=== PATIENT | female | born 1945 | race Caucasian/White ===

== ENCOUNTER 2020-08-11 10:49 | Emergency (ER) | payer MEDICARE, SELFPAY ==
[2020-08-11] VITALS (17 sets, daily range): BP systolic 98–127; BP diastolic 50–61; PULSE 85–103; RESP 14–33; TEMP 37.3; O2SAT 89–100
--- NOTE | 2020-08-11 11:39 | ED_ITS ---
HPI - General Adult General Chief complaint: Weakness Stated complaint: pneumonia/inflamed pelvic lymphnodes/anemic Time Seen by Provider: 08/11/20 11:21 Source: patient and family Mode of arrival: Wheelchair Limitations: no limitations History of Present Illness HPI narrative: Patient is a 75-year-old female. She is here with her daughter. With multiple complaints. She is here for bilateral lower back pain. Initially patient stated this been going on for 2 weeks however the daughter states that this is not necessarily true. She has been complaining of lower back pain for many weeks if not months now however he potentially has gotten worse over the past 2 weeks. No urinary symptoms. No change in bowel habits. No radiation down into her lower extremities. She is also here for a history of anemia. She was started on iron pills by her primary doctor for this. She is also here for decreased appetite. This is also been going on for many weeks now. She has had weight loss over the past 5 months. She has seen her primary doctor and had a CT scan and ultrasound an outside facility which showed simple cysts on her ovaries but also enlarged lymph nodes in her abdomen. She stated that her prima doctor wanted her to see Oncology however this has not happened up to this point because her primary doctor is on vacation. She does live at home with her . She denies any fevers. Generally does not feel well. Related Data Allergies Allergy/AdvReac Type Severity Reaction Status Date / Time No Known Drug Allergies Allergy Verified 08/11/20 11:16 Review of Systems Constitutional Constitutional: Reports fatigue, Denies fever(s) and Reports poor appetite Eyes Eyes: Denies eye discharge Cardiovascular Cardiovascular: Denies chest pain and Denies dyspnea Respiratory Respiratory: Denies dyspnea Gastrointestinal Gastrointestinal: Denies abdominal pain, Denies nausea and Denies vomiting Genitourinary Genitourinary: Denies dysuria Genitourinary: Denies dysuria Musculoskeletal Musculoskeletal: Reports back pain Integumentary/Breasts Skin/Breast: Denies rash Neurologic Neurologic: Denies behavioral changes Psychiatric Psychiatric: Denies behavioral changes Endocrine Endocrine: Reports fatigue Hematologic/Lymphatic On Anticoagulants: No Allergic/Immunologic Allergic/Immunologic: Denies urticaria Patient History Medical History Lower back pain Social History Smoking Status: Never smoker Smoking Status: Never smoker alcohol intake frequency: 0-2 drinks per day Substance Use Type: does not use Exam Initial Vital Signs Initial Vital Signs: Vital Signs Temperature 99.1 F 08/11/20 11:10 Pulse Rate 103 H 08/11/20 11:10 Respiratory Rate 22 08/11/20 11:10 Blood Pressure 118/58 L 08/11/20 11:10 Pulse Oximetry 92 08/11/20 11:10 Const General: cooperative and comfortable Limitations: mental status not altered HENMT Head: normal to inspection and normocephalic Resp Effort & Inspection: normal respiratory effort Auscultation: clear to auscultation bilaterally Cardio Rate: regular rate Rhythm: regular rhythm GI Inspection: non-distended Palpation: soft Skin Lesions: no lesions Rashes: no rashes Neuro General: patient alert and patient awake Cognition: normal cognition Speech: speech normal Extrem General: capillary refill normal Psych Appearance: grossly normal and well kempt Course Orders Ordered: ED Orders 08/11/20 11:40 EKG-12 Lead Stat 08/11/20 11:55 Complete Blood Count AUTO DIFF Stat Comprehensive Metabolic Panel Stat Lactate (Lactic Acid) Stat Lipase Stat Procalcitonin Stat Troponin & CK Cardiac Panel Stat 08/11/20 11:58 COVID19 Stat 08/11/20 12:00 Consult to [facility] [place] [facility] Stat 08/11/20 13:08 Urine Microscopic Stat 08/11/20 13:18 XR chest 1V Stat Discontinued Medications Sodium Chloride (Normal Saline 0.9%) 1,000 mls @ 125 mls/hr IV CONT BRENDA Last Infusion: 08/11/20 15:40 Dose: 0 mls/hr Documented by: Admin: 08/11/20 13:25 Dose: 125 mls/hr Documented by: SOFÍA Ketorolac Tromethamine (Ketorolac 60 Mg/2 Ml Vial) 30 mg IV NOW ONE Stop: 08/11/20 13:19 Last Admin: 08/11/20 13:24 Dose: 30 mg Documented by: SOFÍA Vital Signs Vital signs: Vital Signs - 8 hr 08/11/20 11:10 08/11/20 11:23 08/11/20 11:24 Temperature 99.1 F Pulse Rate 103 H 96 H Respiratory Rate 22 20 Blood Pressure 118/58 L 125/61 Pulse Oximetry 92 100 08/11/20 11:30 08/11/20 11:45 08/11/20 12:00 Temperature Pulse Rate 96 H 92 H 96 H Respiratory Rate 14 16 29 H Blood Pressure 115/61 117/58 L Pulse Oximetry 100 97 93 08/11/20 12:30 08/11/20 13:00 08/11/20 13:04 Temperature Pulse Rate 92 H 102 H 96 H Respiratory Rate 25 H 33 H 20 Blood Pressure 127/58 L Pulse Oximetry 94 89 L 08/11/20 13:15 08/11/20 13:30 08/11/20 13:45 Temperature Pulse Rate 93 H 93 H 91 H Respiratory Rate 18 17 17 Blood Pressure 123/60 111/54 L 102/54 L Pulse Oximetry 93 95 91 08/11/20 14:00 08/11/20 14:15 08/11/20 14:30 Temperature Pulse Rate 91 H 91 H 85 Respiratory Rate 23 24 17 Blood Pressure 98/51 L 101/51 L 98/50 L Pulse Oximetry 91 92 91 08/11/20 14:45 08/11/20 15:00 Temperature Pulse Rate 86 90 Respiratory Rate 25 H 24 Blood Pressure 100/54 L 110/53 L Pulse Oximetry 91 91 Medical Decision Making Medical Records Medical records reviewed: Yes I reviewed the patient's medical records. Lab Data Lab results reviewed: Yes I reviewed the patient's lab results. Result diagrams: 08/11/20 11:55 08/11/20 11:55 Labs: Lab Results 08/11/20 08/11/20 08/11/20 Range/Units 11:55 11:55 11:55 WBC 2.4 L (4.5-11.0) X10^3/uL RBC 2.91 L (4.0-5.2) X10^6/uL Hgb 8.3 L (12.0-16.0) g/dL Hct 24.6 L (36-46) % MCV 84.4 (80-100) fL MCH 28.4 (26-34) PG MCHC 33.6 (30-36) % RDW 16.7 H (11.6-14.8) % Plt Count 348 (150-400) X10^3/uL Neut % (Auto) 78.7 H (50-75) % Lymph % (Auto) 11.4 L (25-40) % [place] % (Auto) 6.3 (3-14) % Eos % (Auto) 2.8 (2-4) % Baso % (Auto) 0.8 (0-2) % Neut # (Auto) 1900 (7283-5243) /uL Lymph # (Auto) 300 L (8648-7808) /uL [place] # (Auto) 200 (0-900) /uL Eos # (Auto) 100 (0-450) /uL Baso # (Auto) 0 (0-100) /uL Sodium 128 L (137-145) mmol/L Potassium 4.4 (3.4-5.1) mmol/L Chloride 96 L (98-107) mmol/L Carbon Dioxide 28 (22-32) mmol/L BUN 21 H (7-17) mg/dL Creatinine 0.73 (0.52-1.04) mg/dL Estimated GFR > 60.0 (>60) mL/min BUN/Creatinine Ratio 28.8 H (6-22) Glucose 93 (80-110) mg/dL Lactate (0.7-2.1) mmol/L Calcium 8.3 L (8.4-10.2) mg/dL Total Bilirubin 0.3 (0.2-1.3) mg/dL AST 61 H (14-36) IU/L ALT 30 (<35) IU/L Alkaline Phosphatase 31 L (38-126) U/L Total Creatine Kinase < 20 L (30-135) U/L CK-MB (CK-2) TNP CK-MB (CK-2) Rel Index TNP Troponin I < 0.012 (0.01-0.034) ng/mL Total Protein 6.5 (6.3-8.2) g/dL Albumin 3.0 L (3.5-5.0) g/dL Globulin 3.5 (1.7-4.1) g/dL Albumin/Globulin Ratio 0.9 L (1.0-2.8) Lipase 65 (23-300) U/L Procalcitonin 0.16 (<0.5) ng/mL Urine RBC (0-5/HPF) Urine WBC (0-5/HPF) Ur Squamous Epith Cells (0-5/HPF) Ur Transition Epith Cell (0-5/HPF) Urine Bacteria (None) Ur Culture Indicated? SARS-CoV-2 (PCR) (Negative) 08/11/20 08/11/20 08/11/20 Range/Units 11:55 11:58 13:08 WBC (4.5-11.0) X10^3/uL RBC (4.0-5.2) X10^6/uL Hgb (12.0-16.0) g/dL Hct (36-46) % MCV (80-100) fL MCH (26-34) PG MCHC (30-36) % RDW (11.6-14.8) % Plt Count (150-400) X10^3/uL Neut % (Auto) (50-75) % Lymph % (Auto) (25-40) % [place] % (Auto) (3-14) % Eos % (Auto) (2-4) % Baso % (Auto) (0-2) % Neut # (Auto) (9073-2429) /uL Lymph # (Auto) (2424-4378) /uL [place] # (Auto) (0-900) /uL Eos # (Auto) (0-450) /uL Baso # (Auto) (0-100) /uL Sodium (137-145) mmol/L Potassium (3.4-5.1) mmol/L Chloride (98-107) mmol/L Carbon Dioxide (22-32) mmol/L BUN (7-17) mg/dL Creatinine (0.52-1.04) mg/dL Estimated GFR (>60) mL/min BUN/Creatinine Ratio (6-22) Glucose (80-110) mg/dL Lactate 1.2 (0.7-2.1) mmol/L Calcium (8.4-10.2) mg/dL Total Bilirubin (0.2-1.3) mg/dL AST (14-36) IU/L ALT (<35) IU/L Alkaline Phosphatase (38-126) U/L Total Creatine Kinase (30-135) U/L CK-MB (CK-2) CK-MB (CK-2) Rel Index Troponin I (0.01-0.034) ng/mL Total Protein (6.3-8.2) g/dL Albumin (3.5-5.0) g/dL Globulin (1.7-4.1) g/dL Albumin/Globulin Ratio (1.0-2.8) Lipase (23-300) U/L Procalcitonin (<0.5) ng/mL Urine RBC 1-5/hpf (0-5/HPF) Urine WBC 10-30/hpf H (0-5/HPF) Ur Squamous Epith Cells 10-30 /hpf H (0-5/HPF) Ur Transition Epith Cell 5-10/hpf H (0-5/HPF) Urine Bacteria None seen (None) Ur Culture Indicated? Cult not indicated SARS-CoV-2 (PCR) Negative (Negative) Urine Dip Bedside Urine Glucose Negative Bedside Urine Bilirubin - Negative Bedside Urine Ketone - Negative Urine Specific [place] 1.015 Bedside Urine Occult Blood - Negative Bedside Urine pH 6.0 Bedside Urine Protein - Negative Bedside Urine Urobilinogen - Negative Bedside Urine Nitrite - Negative Bedside Urine Leukocytes +/- 15 Esterase Point of care testing: Urine Dip Bedside Urine Glucose Negative Bedside Urine Bilirubin - Negative Bedside Urine Ketone - Negative Urine Specific [place] 1.015 Bedside Urine Occult Blood - Negative Bedside Urine pH 6.0 Bedside Urine Protein - Negative Bedside Urine Urobilinogen - Negative Bedside Urine Nitrite - Negative Bedside Urine Leukocytes +/- 15 Esterase ECG Data Attestation: I personally reviewed and interpreted this ECG as follows: Prior ECG tracings: not available for review Interpretation: Sinus rhythm Ventricular rate 94 Normal axis Normal QRS Normal QTC No ST T wave changes MDM Narrative Medical decision making narrative: Patient is anemic however none level that would require blood transfusion and feels not a level that would explain her symptoms. I did inform her that it would take longer than 10 days for for the iron that she has taken provided by her primary doctor to start increasing her blood counts. I was able to review the patient's CT scan and ultrasound. Feel that most likely reason that the patient is here is because they do have been told that they needed follow-up with Oncology based on the CT scan and ultrasound results and they cannot get in to see their primary doctor until the . Unfortunately cannot move this appointment up however they were given the phone number for our local oncologist they can call to see if they can get in without a referral. Patient does not meet any admission criteria today. They were seen by social work and they were able to schedule appointment with her primary doctor later this week. The patient and family at bedside all expressed understanding and agreement. Discharge Plan Departure Patient Disposition: Home Clinical Impression: Fatigue, Anemia, Decreased appetite Instructions: DI for Fatigue Activity Restrictions/Additional Instructions: I do recommend you continue all of your medications as directed. Keep all of your scheduled medical appointments. I do recommend you contact the [facility] here at [facility] at [phone]. You may need a referral from your primary provider before you can schedule an appointment however you can give them a call to confirm this. I do recommend that you increase your food intake. This can be with anything to include meal suppleme nts such as Ensure or boost. Return to the emergency department for any new or worsening symptoms Referrals: Beka Tucker DO [Primary Care Provider] -
[2020-08-11 12:07] LABS: Add Manual Diff / Slide Review NO; Basophils Absolute Auto 0 /uL (0-100); Basophils Percent Auto 0.8 % (0-2); Eosinophils Absolute Auto 100 /uL (0-450); Eosinophils Percent Auto 2.8 % (2-4); Hematocrit 24.6 % (36-46); Hemoglobin 8.3 g/dL (12.0-16.0); Lymphocytes Absolute Auto 300 /uL (1100-4500); Lymphocytes Percent Auto 11.4 % (25-40); Mean Corpuscular HGB Conc 33.6 % (30-36); Mean Corpuscular Hemoglobin 28.4 PG (26-34); Mean Corpuscular Volume 84.4 fL (80-100); Monocytes Absolute Auto 200 /uL (0-900); Monocytes Percent Auto 6.3 % (3-14); Neutrophils Absolute Auto 1900 /uL (1500-7000); Neutrophils Percent Auto 78.7 % (50-75); Platelet Count 348 X10^3/uL (150-400); Red Blood Cell Count 2.91 X10^6/uL (4.0-5.2); Red Cell Distribution Width 16.7 % (11.6-14.8); White Blood Cell Count 2.4 X10^3/uL (4.5-11.0)
[2020-08-11 12:17] LABS: Lactate (Lactic Acid) 1.2 mmol/L (0.7-2.1)
[2020-08-11 12:19] LABS: Alanine Aminotransferase 30 IU/L (<35); Albumin Globulin Ratio 0.9 (1.0-2.8); Alkaline Phosphatase 31 U/L (38-126); Aspartate Aminotransferase 61 IU/L (14-36); BUN Creatinine Ratio 28.8 (6-22); Bilirubin Total 0.3 mg/dL (0.2-1.3); Blood Urea Nitrogen 21 mg/dL (7-17); Calcium 8.3 mg/dL (8.4-10.2); Carbon Dioxide 28 mmol/L (22-32); Chloride 96 mmol/L (98-107); Creatine Kinase < 20 U/L (30-135); Estimated Glomerular Filt Rate > 60.0 mL/min (>60); Globulin 3.5 g/dL (1.7-4.1); Glucose 93 mg/dL (80-110); HEMOLYSIS < 15 (0-50); Lipase 65 U/L (23-300); Potassium 4.4 mmol/L (3.4-5.1); Sodium 128 mmol/L (137-145); Total Protein 6.5 g/dL (6.3-8.2)
[2020-08-11 12:30] LABS: Troponin I < 0.012 ng/mL (0.01-0.034)
[2020-08-11 12:33] LABS: COVID19 -Nasal RAPID Negative (Negative)
[2020-08-11 12:34] LABS: Procalcitonin 0.16 ng/mL (<0.5)
--- NOTE | 2020-08-11 13:18 | DI.RAD.S_ITS ---
PROCEDURE: XR CHEST 1V INDICATIONS: SOB TECHNIQUE: One view of the chest was acquired. COMPARISON: None. FINDINGS: Surgical changes and devices: None. Lungs and pleura: Lungs are clear. No significant pleural effusions or pneumothorax. Mediastinum: Mediastinal contours appear normal. Heart size is enlarged. Bones and chest wall: No suspicious bony lesions. Overlying soft tissues appear unremarkable. IMPRESSION: No acute pulmonary pathology. Cardiomegaly. Dictated by: Mina Turner M.D. on 08/11/2020 at 12:34 Approved by: Mina Turner M.D. on 08/11/2020 at 12:45
[2020-08-11 13:23] LABS: Bacteria Urine None Seen
[2020-08-11] MEDS: KETOROLAC 60 MG/2 ML VIAL 30 MG IV (13:24)
[2020-08-11] MEDS: SODIUM CHLORIDE 0.9% 1,000 ML 125 ML IV (13:25)
[2020-08-11 13:37] LABS: Culture Indicated Urine Cult Not Indicated; RBC Urine 1-5/HPF (0-5/HPF); Squamous Epithelial Cell Urine 10-30 /HPF (0-5/HPF); Transitional Epi Cells Urine 5-10/HPF (0-5/HPF); WBC Urine 10-30/HPF (0-5/HPF)
--- NOTE | 2020-08-11 15:23 | CM.SWNOTE ---
CERAMIC TILE MECHANIC/DCP Note: Received verbal referral from ED provider/Dr. Barbosa requesting CERAMIC TILE MECHANIC see patient/family to assist with community resources for discharge. Patient is a 75yr old female presenting to ED via family transport for weakness. CERAMIC TILE MECHANIC met with patient and DIL/Jazmin explained CERAMIC TILE MECHANIC role. LULU reports that mass had been found on patient's pelvic lymphnode. Per LULU patient has been seen by PCP/Dr. Tucker 2x in the last month. DIL unsure on how much information was provided to patient? Patient has appointment scheduled with PCP on 08-20-20. Patient and DIL requesting sooner appointment to obtain referrals for possible Oncology intervention. Placed call to PCP's office spoke with Rita, she confirms appointment on 08-20-19 and reports patient can be seen on 08-13-20 at 10:00AM. Rita requesting ED notes be faxed prior to appointment. ED staff notified and will fax prior to patient's departure. In addition, to the above discussed community resources such as private caregivers in the residence. Family currently assisting but report that they cannot do this full-time. Patient resides with spouse that has multiple medical issues and no longer drives. LULU reports patient and spouse very private therefore, obtaining community resources has been a challenge. Family hopeful that this visit to ED and community resources recommended will help. DPOA information also provided and encouraged to complete with PCP. P: Home today. SUBHA Alberts
== END 2020-08-11 15:37 | disposition home or self-care (01) ==
PROVIDERS: Emergency Provider Emergency Medicine; PCP Family Medicine
DX: R53.83 Other fatigue (principal); D64.9 Anemia, unspecified; R63.0 Anorexia; M54.5 Low back pain; Z20.822 Contact with and (suspected) exposure to COVID-19
CPT/HCPCS: 36415; 71045; 80053; 81003; 81015; 82550; 83605; 83690; 84145; 84484; 85025; 87635; 93005; 96361; 96374; 99284; C9803; J1885

== ENCOUNTER → 2020-08-26 11:08 | Outpatient (CLI) | payer MEDICARE, SELFPAY ==
--- NOTE | 2020-08-26 | DI.ECHO.S_ITS ---
[facility] +---------+ : : [address] : : : : [id number] : : : : Phone: [phone] Echocardiogram Report + + :Name: ERLINDA FAULKNER Study Date: 08/26/2020 Height: 64 in : :[facility] ReadingLocation: Weight: 197 lb : : Gender: Female BSA: 1.9 m2 : :: 1945 Age: 75 yrs BP: 112/78 mmHg: :Reason For Study: ATHEROSCLEROTIC HEART DISEASE : :Ordering Physician: TRU, : :FRANCI Performed By: Betsy Barton : :Referring: FRANCI BRITO : + + Interpretation Summary 1) Normal left ventricular size, wall motion, and systolic function (EF 60- 65%). 2) Normal right ventricular size and function. 3) No significant valvular abnormalities. 4) No prior Echo available for comparison. Procedure: A two-dimensional transthoracic echocardiogram with color flow and Doppler was performed. The study quality was technically adequate. There is no prior echocardiogram noted for this patient. The patient was in sinus rhythm with heart rates between 84-88 bpm during the exam. Left Ventricle: The left ventricle is normal in size. Left ventricular wall thickness is mildly increased. Proximal septal thickening is noted. The ejection fraction is estimated to be 60-65%. Left ventricular systolic function appears normal without focal wall motion abnormalities. Right Ventricle: The right ventricle is normal in size and function. Atria: The left atrium is moderately dilated. Right atrial size is normal. There is no Doppler evidence for an interatrial shunt. Mitral Valve: The mitral valve is normal in structure and function. There is mild mitral regurgitation. Aortic Valve: There is mild aortic valve sclerosis. The aortic valve is trileaflet. The aortic valve opens well. The calculated aortic valve area is 2.9 cm2. The peak aortic velocity is 2.16 m/sec. The aortic valve mean gradient is 10 mmHg. There is no aortic valve stenosis. Mildly elevated gradient across the aortic valve due to high output state (stroke volume 112cc). No aortic regurgitation is present. Tricuspid Valve: The tricuspid valve is normal in structure and function. There is trace tricuspid regurgitation. The right ventricular systolic pressure is estimated to be at least 29 mmHg based on an estimated right atrial pressure of 3 mm Hg. Pulmonic Valve: The pulmonic valve leaflets are thin and pliable; valve motion is normal. There is no pulmonic valvular regurgitation. Great Vessels: The aortic root is normal size. The ascending aorta is at the upper limits of normal in size. The IVC is of normal diameter and collapses greater than 50% with a sniff. This suggests a low right atrial pressure of 3 mm Hg. Pericardium/ Pleura There is no pericardial effusion. There is no pleural effusion. MMode/2D Measurements & Calculations LVIDd: 3.8 cm LVOT diam: 2.4 cm LVIDs: 2.4 cm Ao root diam: 2.7 cm FS: 36.0 % asc Aorta Diam: 4.0 cm IVSd: 1.3 cm Ao Arch Diam (Prox Trans): 3.0 cm LVPWd: 1.0 cm LV velasquez. diameter/BSA (cm/m^2): 2.0 LV sys. diameter/BSA (cm/m^2): 1.3 LA A2 area: 22.6 cm2 RA long axis: 5.1 cm LA A4 area: 23.1 cm2 RA area: 15.7 cm2 LA length (vol): 5.8 cm RA vol: 41.3 ml LA vol: 75.8 ml RA : 21.3 ml/m2 LA vol index: 39.0 ml/m2 IVC diam: 1.3 cm RVD1 (basal): 3.1 cm TAPSE: 1.8 cm Doppler Measurements & Calculations Ao V2 max: 216.3 cm/sec LVOT Max David: 129.1 cm/sec Ao V2 mean: 148.6 cm/sec LV V1 max P.7 mmHg Ao max P.7 mmHg LV V1 VTI: 25.7 cm Ao mean P.0 mmHg NADEGE(I,D): 2.9 cm2 Ao V2 VTI: 38.3 cm NADEGE(V,D): 2.6 cm2 sev ratio: 0.67 NADEGE indexed to BSA (cm^2/m^2): 1.5 MV E max david: 76.5 cm/sec TR max david: 255.6 cm/sec MV A max david: 107.8 cm/sec TR max P.1 mmHg MV E/A: 0.71 PA V2 max: 97.9 cm/sec Med Peak E' David: 5.9 cm/sec PA V2 mean: 69.8 cm/sec E/E' med: 12.9 PA mean P.2 mmHg Lat Peak E' David: 11.7 cm/sec PA pr(Accel): 44.7 mmHg E/E' lat: 6.5 E/e' average: 9.7 MV dec time: 0.23 sec SV(OT): 112.4 ml Reading Physician:07:28 PM
[2020-08-26 13:56] LABS: Carcinoembryonic Antigen 0.4 ng/mL (0.1-3.0)
[2020-08-27 08:09] LABS: Cancer (Carbohydrate) Ag 19-9 3 U/mL (0-35)
== END ==
PROVIDERS: Obstetrics & Gynecology; Family Provider Physician Assistant Medical; PCP Family Medicine; Referring Provider Internal Medicine Cardiovascular Disease; Visit Provider Internal Medicine Cardiovascular Disease
DX: I08.0 Rheumatic disorders of both mitral and aortic valves (principal); I25.10 Atherosclerotic heart disease of native coronary artery without angina pectoris; I10 Essential (primary) hypertension; R63.4 Abnormal weight loss
CPT/HCPCS: 36415; 82378; 86301; 93306

== ENCOUNTER 2020-08-28 11:54 | Emergency (ER) | payer MEDICARE, SELFPAY ==
[2020-08-28] VITALS (8 sets, daily range): BP systolic 106–126; BP diastolic 53–60; PULSE 83–90; RESP 18; TEMP 37.2; O2SAT 96–100; BMI 33.6
--- NOTE | 2020-08-28 12:09 | ED_ITS ---
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 Today she was at her doctor's office when she felt dizzy and lightheaded she did not pass out. Apparently this has happened a couple of times. She has no significant abdominal pain she did not hit her head she has no chest pain. She does have some shortness of breath. She has known pleural effusion. She denies any fevers chills nausea vomiting or cough. She has no weakness numbness tingling. [id number] at bedside stating that she has had an episode at least once a day where she feels dizzy and lightheaded she does not pass out but they do seem to be more frequent. No focal deficits. MD complaint: dizziness and lightheadedness History of trauma: No Related Data Home Medications Medication Instructions Recorded Confirmed B-complex with vitamin C 1 cap PO DAILY 08/14/20 08/21/20 aspirin 81 mg tablet,delayed 81 mg PO DAILY 08/14/20 08/21/20 release atorvastatin 10 mg tablet 5 mg PO DAILY 08/14/20 08/28/20 ferrous sulfate 325 mg (65 mg 325 mg PO DAILY 08/14/20 08/21/20 iron) tablet levothyroxine 175 mcg capsule 175 mcg PO DAILY 08/14/20 08/28/20 losartan 100 mg tablet 100 mg PO DAILY 08/14/20 08/21/20 mirtazapine 15 mg disintegrating 15 mg PO DAILY 08/14/20 08/28/20 tablet polaprezinc (zinc carnosine) 16 mg mg PO 08/14/20 08/21/20 chewable tablet Previous Rx's Medication Instructions Recorded sodium,potassium,mag sulfates 17.5 177 ml PO DAILY #354 ml 08/14/20 gram-3.13 gram-1.6 gram oral soln Allergies Allergy/AdvReac Type Severity Reaction Status Date / Time No Known Drug Allergies Allergy Verified 08/21/20 11:01 Review of Systems Review of Systems ROS Unobtainable: All systems reviewed & are unremarkable except as noted in HPI and below Constitutional Constitutional: Denies chills, Denies fever(s), Denies lethargy and Denies weakness Cardiovascular Cardiovascular: Denies chest pain, Denies edema and Reports lightheadedness Respiratory Respiratory: Reports as per HPI Gastrointestinal Gastrointestinal: Reports as per HPI Musculoskeletal Musculoskeletal: Denies back pain and Denies limited range of motion Integumentary/Breasts Skin/Breast: Denies pruritus, Denies erythema, Denies rash and Denies wounds Neurologic Neurologic: Denies weakness Patient History Medical History Hypertension Hypothyroidism Lower back pain Prediabetes Surgical History History of carpal tunnel surgery Family History Grandmother Colon cancer Mother Ovarian cancer Unknown Bone cancer Father Prostate cancer Brother Bladder cancer Social History Smoking Status: Never smoker alcohol intake: never substance use type: does not use Smoking Status: Never smoker alcohol intake frequency: 0-2 drinks per day Substance Use Type: does not use Exam Initial Vital Signs Initial Vital Signs: Vital Signs Temperature 98.9 F 08/28/20 12:19 Pulse Rate 88 08/28/20 12:19 Respiratory Rate 18 08/28/20 12:19 Blood Pressure 121/60 08/28/20 12:19 Pulse Oximetry 99 08/28/20 12:19 GENERAL: Alert pleasant 75-year-old female and in [no acute] distress. HEENT: Head atraumatic,EOMI, pupils reactive, face symmetric, [moist] mucous membranes CARDIOVASCULAR: Regular rate and rhythm without murmurs, rubs or gallops. RESPIRATORY: Breath sounds equal bilaterally, no wheezes rales or rhonchi. ABDOMEN: Soft, nontender. Normoactive bowel sounds all 4 quadrants. No guarding or rebound. EXTREMITIES: Normal range of motion, no clubbing or edema. Neurovascularly intact NEUROLOGICAL: Alert and oriented x4.Normal gait and speech. Cranial nerves II through XII grossly intact. SKIN: Warm, dry, no laceration, no petechiae, no rashes or lesions. Scores NIH Stroke Scale Level of Conciousness: Alert, keenly responsive Ask month/age: Answers both questions correctly. Open/close eyes, close hand: Performs both tasks correctly Best gaze horizontal: Normal Visual boggs: No visual loss Facial palsy: Normal symetrical movement Left arm drift: No drift for full 10 sec Right arm drift: No drift for full 10 sec Left leg drift: No drift for full 5 sec Right leg drift: No drift for full 5 sec Limb ataxia: Absent Sensory on face/arms/legs: Normal, no sensory loss Best language: No aphasia, normal Dysarthria: Normal Extinction or inattention: No abnormality Total NIH Stroke scale score: 0 Course Orders Ordered: ED Orders 08/28/20 12:12 EKG-12 Lead Stat 08/28/20 12:14 CT head/brain wo con Stat 08/28/20 12:15 Complete Blood Count AUTO DIFF Stat Comprehensive Metabolic Panel Stat Lipase Stat NT-proBNP (BNP-Adult 18+) Stat Partial Thromboplastin Time Stat Prothrombin Time INR Stat Troponin & CK Cardiac Panel Stat 08/28/20 12:55 CT chest abd pel w con Stat Discontinued Medications Ketorolac Tromethamine (Ketorolac 60 Mg/2 Ml Vial) 15 mg IV NOW ONE Stop: 08/28/20 14:24 Last Admin: 08/28/20 14:32 Dose: 15 mg Documented by: ARIA Vital Signs Vital signs: Vital Signs - 8 hr 08/28/20 12:19 08/28/20 13:16 08/28/20 13:17 Temperature 98.9 F Pulse Rate 88 87 86 Respiratory Rate 18 Blood Pressure 121/60 106/53 L Pulse Oximetry 99 98 08/28/20 13:30 08/28/20 14:00 08/28/20 14:30 Temperature Pulse Rate 85 83 90 Respiratory Rate Blood Pressure 110/57 L 112/57 L 109/59 L Pulse Oximetry 100 100 100 08/28/20 15:00 08/28/20 15:30 Temperature Pulse Rate 83 84 Respiratory Rate Blood Pressure 115/58 L 126/60 Pulse Oximetry 100 96 MDM - Dizziness Lab Data Attestation: I reviewed the patient's lab results. Result diagrams: 08/28/20 12:15 08/28/20 12:15 Labs: Lab Results 08/28/20 08/28/20 08/28/20 Range/Units 12:15 12:15 12:15 WBC 5.7 (4.5-11.0) X10^3/uL RBC 3.11 L (4.0-5.2) X10^6/uL Hgb 8.9 L (12.0-16.0) g/dL Hct 27.1 L (36-46) % MCV 86.9 (80-100) fL MCH 28.7 (26-34) PG MCHC 33.0 (30-36) % RDW 17.0 H (11.6-14.8) % Plt Count 124 L (150-400) X10^3/uL Neut % (Auto) 89.5 H (50-75) % Lymph % (Auto) 5.2 L (25-40) % [place] % (Auto) 4.4 (3-14) % Eos % (Auto) 0.5 L (2-4) % Baso % (Auto) 0.4 (0-2) % Neut # (Auto) 5100 (3830-9259) /uL Lymph # (Auto) 300 L (9864-7392) /uL [place] # (Auto) 300 (0-900) /uL Eos # (Auto) 0 (0-450) /uL Baso # (Auto) 0 (0-100) /uL PT 14.2 H (10.1-12.7) SECONDS INR 1.2 (0.9-1.3) APTT 34 (26.4-36.2) SECONDS Sodium 127 L (137-145) mmol/L Potassium 4.7 (3.4-5.1) mmol/L Chloride 98 (98-107) mmol/L Carbon Dioxide 23 (22-32) mmol/L BUN 27 H (7-17) mg/dL Creatinine 1.03 (0.52-1.04) mg/dL Estimated GFR 52.5 L (>60) mL/min BUN/Creatinine Ratio 26.2 H (6-22) Glucose 94 (80-110) mg/dL Calcium 8.3 L (8.4-10.2) mg/dL Total Bilirubin 0.5 (0.2-1.3) mg/dL AST 34 (14-36) IU/L ALT 13 (<35) IU/L Alkaline Phosphatase 42 (38-126) U/L Total Creatine Kinase < 20 L (30-135) U/L CK-MB (CK-2) TNP CK-MB (CK-2) Rel Index TNP Troponin I < 0.012 (0.01-0.034) ng/mL NT-Pro-B Natriuret Pep 2650 H (<125) pg/mL Total Protein 6.6 (6.3-8.2) g/dL Albumin 2.8 L (3.5-5.0) g/dL Globulin 3.8 (1.7-4.1) g/dL Albumin/Globulin Ratio 0.7 L (1.0-2.8) Lipase 58 (23-300) U/L Imaging Data CT scan - abdomen/pelvis: Radiologist's Impression: PROCEDURE: CT CHEST ABD PEL W CON INDICATIONS: lightheaded, ?ovarian CA, ab swelling, pleural effusions TECHNIQUE: After the administration of oral and intravenous contrast, 5 mm thick sections acquired from the lung apices to the symphysis. 5 mm coronal and sagittal reformats were performed, with additional 7 mm coronal MIP reformats through the lungs. For radiation dose reduction, the following was used: automated exposure control, adjustment of mA and/or kV according to patient size. COMPARISON: [facility], US, US PELVIC COMPLETE, 08/21/2020, 11:46. [facility], RG, CT ABDOMEN/PELVIS WITH CONTRAST, 08/07/2020, 10:37. FINDINGS: Image quality: Excellent. CHEST: Lungs and pleura: There is a mild left and minimal right pleural effusion. Superimposed dependent changes are present bilaterally. Mediastinum: Heart size is mildly prominent. No pericardial effusion. No mediastinal or hilar adenopathy by size criteria. Thoracic aorta and central pulmonary arteries are normal in size. Esophagus is normal in caliber. Mild hiatal hernia. Chest wall: No axillary or supraclavicular adenopathy by size criteria. Thyroid gland is unremarkable. ABDOMEN: Solid organs: Liver is enlarged with steatosis. Gallbladder is unremarkable . Biliary system is non dilated. Pancreas enhances normally. Spleen is normal in size and enhancement. No adrenal nodules. Kidneys demonstrate normal size and enhancement, without hydronephrosis. Bilateral renal cysts. Peritoneum and bowel: Bowel loops demonstrate normal wall thickness and caliber. No free fluid or air. Nodes and vessels: No retroperitoneal or mesenteric adenopathy by size criteria. Aorta and inferior vena cava are normal in size. Miscellaneous: Fat and partial bowel containing ventral hernia. PELVIS: Genitourinary: Bladder wall thickness is normal. Low-attenuation cystic like structure in the left ovary measuring 40 mm AP x 65 mm transverse compared to 42 mm AP x 55 mm transverse. Miscellaneous: As noted on prior exam, there are mildly enlarged iliac and pelvic sidewall lymph nodes. Overall, there has been a minimal interval decrease in size. Most notable is the right iliac on series 4, image 93 measuring 11 x 16 mm compared to 15 by 18 mm. Bones: No suspicious bony lesions. No vertebral body compression fractures. IMPRESSION: 1. Persistent appearance of left ovarian cystic structure, mildly increased compared to prior exam. Given patient's age, cystic neoplasm cannot be excluded, especially given presence of mildly prominent pelvic lymph nodes. Pelvic ultrasound of 08/21/2020 provided for evaluation has limited images and no report available for review. 2. Minimal to mild bilateral effusions. The above findings were discussed with Dr. Elly Gibson on 08/28/20 at 2:15pm. Dictated by: Edna Lewis M.D. on 08/28/2020 at 14:01 CT scan - head: Radiologist's Impression: PROCEDURE: CT HEAD/BRAIN WO CON INDICATIONS: lightheaded with cancer TECHNIQUE: Noncontrast 4.5 mm thick angled axial sections acquired from the foramen magnum to the vertex, with coronal and sagittal reformats. For radiation dose reduction, the following was used: automated exposure control, adjustment of mA and/or kV according to patient size. COMPARISON: None. FINDINGS: Image quality: Excellent. CSF spaces: Basal cisterns are patent. No extra-axial fluid collections. The ventricles are symmetric in size and shape. Brain: No intracranial bleeds or masses. There is mild cerebral volume loss for age, with resultant ventricular and sulcal prominence. There are mild periventricular and deep white matter chronic small vessel ischemic changes. There is intracranial internal carotid artery atherosclerosis. Skull and face: Calvarium and visualized facial bones appear intact, without suspicious lesions. Sinuses: Visualized sinuses are clear. Fluids in mastoids. IMPRESSION: 1. No acute intracranial abnormalities. 2. Cerebral volume loss and chronic microvascular ischemic changes. 3. Noncontrast head CT is not sensitive for small intracranial metastasis. For metastatic evaluation, MRI with and without contrast is suggested. Dictated by: Lissy Vo M.D. on 08/28/2020 at 13:19 ECG Data Attestation: I personally reviewed and interpreted this ECG as follows: Prior ECG tracings: available for review Interpretation: Normal sinus rhythm rate 88 AL interval of 204 QRS [address] changes or T-wave inversions similar to previous EKG MDM Narrative Medical decision making narrative: Patient's blood work is overall stable from previous persistent hyponatremia which remains unchanged slightly improved anemia. Her dizziness lightheadedness and presyncopal episode may or may not be related to her anemia or hyponatremia however unclear at this time. At this time I do not believe she qualifies for blood transfusion because her hemoglobin is rising. At this time I recommend outpatient follow-up she has appointments with Oncology and her primary care provider. She has good home support and 24 caregivers.. Discharge Plan Departure Patient Disposition: Home Clinical Impression: Acute hyponatremia Anemia Qualifiers: Anemia type: unspecified type Qualified Code(s): D64.9 - Anemia, unspecified Instructions: Anemia Activity Restrictions/Additional Instructions: *You have been diagnosed with anemia, low sodium *What to do: Recommend Gatorade or Gatorade like substance, try smoothies. You may require a blood transfusion if you are still having near his syncopal episodes however your blood level has actually increased since last time. Follow-up with Oncology as scheduled *Continue to take medications as directed *Follow up with your primary care provider in 2-3 days *Return to ER if you should have more frequent or worsening fainting or fainting like episodes, chest pain, shortness of breath or any new, worsening or concerning symptoms Prescriptions: No Action atorvastatin 10 mg tablet 5 mg PO DAILY RF: 0 ferrous sulfate 325 mg (65 mg iron) tablet 325 mg PO DAILY RF: 0 levothyroxine 175 mcg capsule 175 mcg PO DAILY RF: 0 losartan 100 mg tablet 100 mg PO DAILY RF: 0 aspirin [Adult Aspirin Regimen] 81 mg tablet,delayed release (DR/EC) 81 mg PO DAILY RF: 0 B-complex with vitamin C Capsule 1 cap PO DAILY RF: 0 polaprezinc (zinc carnosine) 16 mg tablet,chewable PO RF: 0 mirtazapine [Remeron SolTab] 15 mg tablet,disintegrating 15 mg PO DAILY RF: 0 sodium,potassium,mag sulfates 17.5-3.13-1.6 gram recon soln 177 ml PO DAILY Qty: 354 RF: 0 Referrals: Beka Tucker DO [Primary Care Provider] -
--- NOTE | 2020-08-28 12:14 | DI.CT.S_ITS ---
PROCEDURE: CT HEAD/BRAIN WO CON INDICATIONS: lightheaded with cancer TECHNIQUE: Noncontrast 4.5 mm thick angled axial sections acquired from the foramen magnum to the vertex, with coronal and sagittal reformats. For radiation dose reduction, the following was used: automated exposure control, adjustment of mA and/or kV according to patient size. COMPARISON: None. FINDINGS: Image quality: Excellent. CSF spaces: Basal cisterns are patent. No extra-axial fluid collections. The ventricles are symmetric in size and shape. Brain: No intracranial bleeds or masses. There is mild cerebral volume loss for age, with resultant ventricular and sulcal prominence. There are mild periventricular and deep white matter chronic small vessel ischemic changes. There is intracranial internal carotid artery atherosclerosis. Skull and face: Calvarium and visualized facial bones appear intact, without suspicious lesions. Sinuses: Visualized sinuses are clear. Fluids in mastoids. IMPRESSION: 1. No acute intracranial abnormalities. 2. Cerebral volume loss and chronic microvascular ischemic changes. 3. Noncontrast head CT is not sensitive for small intracranial metastasis. For metastatic evaluation, MRI with and without contrast is suggested. Dictated by: Lissy Vo M.D. on 08/28/2020 at 13:19 Approved by: Lissy Vo M.D. on 08/28/2020 at 13:24
[2020-08-28 12:27] LABS: Add Manual Diff / Slide Review NO; Basophils Absolute Auto 0 /uL (0-100); Basophils Percent Auto 0.4 % (0-2); Eosinophils Absolute Auto 0 /uL (0-450); Eosinophils Percent Auto 0.5 % (2-4); Hematocrit 27.1 % (36-46); Hemoglobin 8.9 g/dL (12.0-16.0); Lymphocytes Absolute Auto 300 /uL (1100-4500); Lymphocytes Percent Auto 5.2 % (25-40); Mean Corpuscular Hemoglobin 28.7 PG (26-34); Mean Corpuscular Volume 86.9 fL (80-100); Monocytes Absolute Auto 300 /uL (0-900); Monocytes Percent Auto 4.4 % (3-14); Neutrophils Absolute Auto 5100 /uL (1500-7000); Neutrophils Percent Auto 89.5 % (50-75); Platelet Count 124 X10^3/uL (150-400); Red Blood Cell Count 3.11 X10^6/uL (4.0-5.2); White Blood Cell Count 5.7 X10^3/uL (4.5-11.0)
[2020-08-28 12:34] LABS: INR 1.2 (0.9-1.3); Prothrombin Time 14.2 SECONDS (10.1-12.7)
[2020-08-28 12:36] LABS: PTT Partial Thromboplastin Tim 34 SECONDS (26.4-36.2)
[2020-08-28 12:42] LABS: Alanine Aminotransferase 13 IU/L (<35); Albumin 2.8 g/dL (3.5-5.0); Albumin Globulin Ratio 0.7 (1.0-2.8); Alkaline Phosphatase 42 U/L (38-126); Aspartate Aminotransferase 34 IU/L (14-36); BUN Creatinine Ratio 26.2 (6-22); Bilirubin Total 0.5 mg/dL (0.2-1.3); Blood Urea Nitrogen 27 mg/dL (7-17); Calcium 8.3 mg/dL (8.4-10.2); Carbon Dioxide 23 mmol/L (22-32); Chloride 98 mmol/L (98-107); Creatine Kinase < 20 U/L (30-135); Estimated Glomerular Filt Rate 52.5 mL/min (>60); Globulin 3.8 g/dL (1.7-4.1); Glucose 94 mg/dL (80-110); HEMOLYSIS < 15 (0-50); Lipase 58 U/L (23-300); Potassium 4.7 mmol/L (3.4-5.1); Sodium 127 mmol/L (137-145); Total Protein 6.6 g/dL (6.3-8.2)
[2020-08-28 12:54] LABS: NT-proBNP (BNP-Adult 18+) 2650 pg/mL (<125); Troponin I < 0.012 ng/mL (0.01-0.034)
--- NOTE | 2020-08-28 12:55 | DI.CT.S_ITS ---
PROCEDURE: CT CHEST ABD PEL W CON INDICATIONS: lightheaded, ?ovarian CA, ab swelling, pleural effusions TECHNIQUE: After the administration of oral and intravenous contrast, 5 mm thick sections acquired from the lung apices to the symphysis. 5 mm coronal and sagittal reformats were performed, with additional 7 mm coronal MIP reformats through the lungs. For radiation dose reduction, the following was used: automated exposure control, adjustment of mA and/or kV according to patient size. COMPARISON: [facility], US, US PELVIC COMPLETE, 08/21/2020, 11:46. [facility], , CT ABDOMEN/PELVIS WITH CONTRAST, 08/07/2020, 10:37. FINDINGS: Image quality: Excellent. CHEST: Lungs and pleura: There is a mild left and minimal right pleural effusion. Superimposed dependent changes are present bilaterally. Mediastinum: Heart size is mildly prominent. No pericardial effusion. No mediastinal or hilar adenopathy by size criteria. Thoracic aorta and central pulmonary arteries are normal in size. Esophagus is normal in caliber. Mild hiatal hernia. Chest wall: No axillary or supraclavicular adenopathy by size criteria. Thyroid gland is unremarkable. ABDOMEN: Solid organs: Liver is enlarged with steatosis. Gallbladder is unremarkable . Biliary system is non dilated. Pancreas enhances normally. Spleen is normal in size and enhancement. No adrenal nodules. Kidneys demonstrate normal size and enhancement, without hydronephrosis. Bilateral renal cysts. Peritoneum and bowel: Bowel loops demonstrate normal wall thickness and caliber. No free fluid or air. Nodes and vessels: No retroperitoneal or mesenteric adenopathy by size criteria. Aorta and inferior vena cava are normal in size. Miscellaneous: Fat and partial bowel containing ventral hernia. PELVIS: Genitourinary: Bladder wall thickness is normal. Low-attenuation cystic like structure in the left ovary measuring 40 mm AP x 65 mm transverse compared to 42 mm AP x 55 mm transverse. Miscellaneous: As noted on prior exam, there are mildly enlarged iliac and pelvic sidewall lymph nodes. Overall, there has been a minimal interval decrease in size. Most notable is the right iliac on series 4, image 93 measuring 11 x 16 mm compared to 15 by 18 mm. Bones: No suspicious bony lesions. No vertebral body compression fractures. IMPRESSION: 1. Persistent appearance of left ovarian cystic structure, mildly increased compared to prior exam. Given patient's age, cystic neoplasm cannot be excluded, especially given presence of mildly prominent pelvic lymph nodes. Pelvic ultrasound of 08/21/2020 provided for evaluation has limited images and no report available for review. 2. Minimal to mild bilateral effusions. The above findings were discussed with Dr. Elly Gibson on 08/28/20 at 2:15pm. Dictated by: Edna Lewis M.D. on 08/28/2020 at 14:01 Approved by: Edna Lewis M.D. on 08/28/2020 at 15:13
[2020-08-28] MEDS: KETOROLAC 60 MG/2 ML VIAL 15 MG IV (14:32)
--- NOTE | 2020-08-28 15:35 | PC.NURSE ---
Dizzy spell at doctor's office this morning. Has resolved. History of same happening more frequently.
== END 2020-08-28 15:56 | disposition home or self-care (01) ==
PROVIDERS: Emergency Provider Emergency Medicine; Family Provider Physician Assistant Medical; PCP Family Medicine
DX: E87.1 Hypo-osmolality and hyponatremia (principal); D64.9 Anemia, unspecified; N83.209 Unspecified ovarian cyst, unspecified side; R42 Dizziness and giddiness; R06.02 Shortness of breath; Z79.82 Long term (current) use of aspirin; I10 Essential (primary) hypertension; E03.9 Hypothyroidism, unspecified; J90 Pleural effusion, not elsewhere classified
CPT/HCPCS: 36415; 70450; 71260; 74177; 80053; 82550; 83690; 83880; 84484; 85025; 85610; 85730; 93005; 93010; 96374; 99284; 99285; J1885

== ENCOUNTER 2020-08-29 11:37 | Emergency (ER) | payer MEDICARE, SELFPAY ==
[2020-08-29 11:58] VITALS: BP 118/59; PULSE 90; RESP 15; TEMP 36.8; O2SAT 97; BMI 33.7
[2020-08-29 13:59] LABS: Add Manual Diff / Slide Review NO; Basophils Absolute Auto 0 /uL (0-100); Basophils Percent Auto 0.5 % (0-2); Eosinophils Absolute Auto 0 /uL (0-450); Eosinophils Percent Auto 0.6 % (2-4); Hematocrit 24.5 % (36-46); Hemoglobin 8.1 g/dL (12.0-16.0); Lymphocytes Absolute Auto 400 /uL (1100-4500); Lymphocytes Percent Auto 8.6 % (25-40); Mean Corpuscular HGB Conc 33.2 % (30-36); Mean Corpuscular Hemoglobin 28.6 PG (26-34); Mean Corpuscular Volume 86.2 fL (80-100); Monocytes Absolute Auto 200 /uL (0-900); Monocytes Percent Auto 3.9 % (3-14); Neutrophils Absolute Auto 4000 /uL (1500-7000); Neutrophils Percent Auto 86.4 % (50-75); Platelet Count 96 X10^3/uL (150-400); Red Blood Cell Count 2.84 X10^6/uL (4.0-5.2); Red Cell Distribution Width 17.1 % (11.6-14.8); White Blood Cell Count 4.7 X10^3/uL (4.5-11.0)
[2020-08-29 14:09] LABS: Alanine Aminotransferase 14 IU/L (<35); Albumin 2.4 g/dL (3.5-5.0); Albumin Globulin Ratio 0.7 (1.0-2.8); Alkaline Phosphatase 36 U/L (38-126); Aspartate Aminotransferase 38 IU/L (14-36); BUN Creatinine Ratio 28.6 (6-22); Bilirubin Total 0.5 mg/dL (0.2-1.3); Blood Urea Nitrogen 24 mg/dL (7-17); Carbon Dioxide 21 mmol/L (22-32); Chloride 100 mmol/L (98-107); Estimated Glomerular Filt Rate > 60.0 mL/min (>60); Globulin 3.4 g/dL (1.7-4.1); Glucose 92 mg/dL (80-110); HEMOLYSIS < 15 (0-50); Potassium 4.3 mmol/L (3.4-5.1); Sodium 126 mmol/L (137-145); Total Protein 5.8 g/dL (6.3-8.2)
--- NOTE | 2020-08-29 14:26 | ED.WEAKNESS ---
HPI - Weakness General Chief complaint: Weakness Stated complaint: not eating enough, needs fluids Time Seen by Provider: 08/29/20 12:39 Source: patient Mode of arrival: Ambulatory Limitations: no limitations History of Present Illness HPI Narrative: Patient is a 75-year-old female was evaluated yesterday. She is currently being worked up for a cancer. She was here yesterday for a lightheaded episode. She is found to be baseline hyponatremic and anemic which was also baseline. She returns today because family's concern to she is not eating or drinking. Family states that she has only had a little bit to eat or drink yesterday we talked about protein shakes and Gatorade and doing the best she can. However she really is unable to eat or drink anything. She overall feels weak family states that she is more confused. Denies any pain. MD Complaint: generalized weakness Related Data Home Medications Medication Instructions Recorded Confirmed B-complex with vitamin C 1 cap PO DAILY 08/14/20 08/21/20 aspirin 81 mg tablet,delayed 81 mg PO DAILY 08/14/20 08/21/20 release atorvastatin 10 mg tablet 5 mg PO DAILY 08/14/20 08/28/20 ferrous sulfate 325 mg (65 mg 325 mg PO DAILY 08/14/20 08/21/20 iron) tablet levothyroxine 175 mcg capsule 175 mcg PO DAILY 08/14/20 08/28/20 losartan 100 mg tablet 100 mg PO DAILY 08/14/20 08/21/20 mirtazapine 15 mg disintegrating 15 mg PO DAILY 08/14/20 08/28/20 tablet polaprezinc (zinc carnosine) 16 mg mg PO 08/14/20 08/21/20 chewable tablet Previous Rx's Medication Instructions Recorded sodium,potassium,mag sulfates 17.5 177 ml PO DAILY #354 ml 08/14/20 gram-3.13 gram-1.6 gram oral soln Allergies Allergy/AdvReac Type Severity Reaction Status Date / Time No Known Drug Allergies Allergy Verified 08/29/20 12:00 Review of Systems Review of Systems ROS Unobtainable: All systems reviewed & are unremarkable except as noted in HPI and below Constitutional Constitutional: Denies chills, Reports fatigue, Denies fever(s), Denies frequent falls, Denies lethargy, Reports poor appetite and Reports weakness ENT Ears, Nose, Mouth, and Throat: Denies change in voice, Denies neck pain and Denies sore throat Cardiovascular Cardiovascular: Denies chest pain, Denies syncope, Denies irregular heart rhythm, Denies lightheadedness, Denies palpitations, Denies dyspnea, Denies dyspnea on exertion and Denies orthopnea Respiratory Respiratory: Denies cough, Denies dyspnea, Denies dyspnea on exertion and Denies wheezing Gastrointestinal Gastrointestinal: Denies abdominal pain, Denies change in bowel habits, Denies diarrhea, Reports nausea and Denies vomiting Musculoskeletal Musculoskeletal: Denies neck pain Integumentary/Breasts Skin/Breast: Denies pruritus, Denies erythema, Denies rash and Denies wounds Neurologic Neurologic: Denies syncope, Denies frequent falls and Reports weakness Endocrine Endocrine: Reports fatigue and Denies palpitations Allergic/Immunologic Allergic/Immunologic: Denies wheezing Patient History Medical History Hypertension Hypothyroidism Lower back pain Prediabetes Surgical History History of carpal tunnel surgery Family History Grandmother Colon cancer Mother Ovarian cancer Unknown Bone cancer Father Prostate cancer Brother Bladder cancer Social History Smoking Status: Never smoker alcohol intake: never substance use type: does not use Smoking Status: Never smoker alcohol intake frequency: 0-2 drinks per day Substance Use Type: does not use Exam Initial Vital Signs Initial Vital Signs: Vital Signs Temperature 98.3 F 08/29/20 11:58 Pulse Rate 90 08/29/20 11:58 Respiratory Rate 15 08/29/20 11:58 Blood Pressure 118/59 L 08/29/20 11:58 Pulse Oximetry 97 08/29/20 11:58 GENERAL: Well-appearing, well-nourished and in no acute distress. HEENT: Head atraumatic,EOMI, pupils reactive, face symmetric, moist mucous membranes CARDIOVASCULAR: Regular rate and rhythm without murmurs, rubs or gallops. RESPIRATORY: Breath sounds equal bilaterally, no wheezes rales or rhonchi. ABDOMEN: Soft, nontender. Normoactive bowel sounds all 4 quadrants. No guarding or rebound. EXTREMITIES: Normal range of motion, no clubbing or edema. Neurovascularly intact NEUROLOGICAL: Alert and oriented x4.Normal gait and speech. Cranial nerves II through XII grossly intact. SKIN: Warm, dry, no laceration, no petechiae, no rashes or lesions. Course Orders Ordered: Discontinued Medications Sodium Chloride (Normal Saline 0.9%) 1,000 mls @ 1,000 mls/hr IV BOLUS ONE Stop: 08/29/20 14:12 Last Infusion: 08/29/20 15:36 Dose: 0 mls/hr Documented by: Admin: 08/29/20 14:37 Dose: 1,000 mls/hr Documented by: IMANI Vital Signs Vital signs: Vital Signs - 8 hr 08/29/20 11:58 Temperature 98.3 F Pulse Rate 90 Respiratory Rate 15 Blood Pressure 118/59 L Pulse Oximetry 97 MDM - Weakness Lab Data Attestation: I reviewed the patient's lab results. Result diagrams: 08/29/20 13:42 08/29/20 13:42 Labs: Lab Results 08/29/20 08/29/20 Range/Units 13:42 13:42 WBC 4.7 (4.5-11.0) X10^3/uL RBC 2.84 L (4.0-5.2) X10^6/uL Hgb 8.1 L (12.0-16.0) g/dL Hct 24.5 L (36-46) % MCV 86.2 (80-100) fL MCH 28.6 (26-34) PG MCHC 33.2 (30-36) % RDW 17.1 H (11.6-14.8) % Plt Count 96 L (150-400) X10^3/uL Neut % (Auto) 86.4 H (50-75) % Lymph % (Auto) 8.6 L (25-40) % [place] % (Auto) 3.9 (3-14) % Eos % (Auto) 0.6 L (2-4) % Baso % (Auto) 0.5 (0-2) % Neut # (Auto) 4000 (4378-3849) /uL Lymph # (Auto) 400 L (7862-0248) /uL [place] # (Auto) 200 (0-900) /uL Eos # (Auto) 0 (0-450) /uL Baso # (Auto) 0 (0-100) /uL Sodium 126 L (137-145) mmol/L Potassium 4.3 (3.4-5.1) mmol/L Chloride 100 (98-107) mmol/L Carbon Dioxide 21 L (22-32) mmol/L BUN 24 H (7-17) mg/dL Creatinine 0.84 (0.52-1.04) mg/dL Estimated GFR > 60.0 (>60) mL/min BUN/Creatinine Ratio 28.6 H (6-22) Glucose 92 (80-110) mg/dL Calcium 8.0 L (8.4-10.2) mg/dL Total Bilirubin 0.5 (0.2-1.3) mg/dL AST 38 H (14-36) IU/L ALT 14 (<35) IU/L Alkaline Phosphatase 36 L (38-126) U/L Total Protein 5.8 L (6.3-8.2) g/dL Albumin 2.4 L (3.5-5.0) g/dL Globulin 3.4 (1.7-4.1) g/dL Albumin/Globulin Ratio 0.7 L (1.0-2.8) MDM Narrative Medical decision making narrative: Discussion with family and patient about admission for observation and weakness versus going home. Patient is postop a colonoscopy on Tuesday which is in [address] Tello, patient's federal mediation commissioner called patient while in the emergency room and suggested admission on Tuesday due to electrolyte abnormalities and colonoscopy prep. I have relayed this message to surgery. Blood work today remains essentially unchanged she is persistently hyponatremic but at baseline and persistently anemic with minimal change. Patient is given 1 L of fluid in the ED. she had full workup with imaging yesterday at this time I see no need to repeat her imaging. I discussed with patient need to drink fluids and encourage her to do so. Social work has been in to evaluate patient and is setting up home care as well. Discharge Plan Departure Patient Disposition: Home Clinical Impression: Acute hyponatremia, Anemia Instructions: DI for Dehydration -- Adult Activity Restrictions/Additional Instructions: *You have been diagnosed with low-sodium anemia *What to do: He need to drink electrolytes such as Gatorade, Pedialyte, Jell-O, water, juice. I will get a message to Dr. Guzman about possibly putting you in the hospital on the Tuesday before your colonoscopy for the preparation to monitor your electrolytes. *Continue to take medications as directed *Follow up with your primary care provider in 2-3 days *Return to ER if you should have passing out, confusion, weakness, falling or any new, worsening or concerning symptoms Prescriptions: No Action atorvastatin 10 mg tablet 5 mg PO DAILY RF: 0 ferrous sulfate 325 mg (65 mg iron) tablet 325 mg PO DAILY RF: 0 levothyroxine 175 mcg capsule 175 mcg PO DAILY RF: 0 losartan 100 mg tablet 100 mg PO DAILY RF: 0 aspirin [Adult Aspirin Regimen] 81 mg tablet,delayed release (DR/EC) 81 mg PO DAILY RF: 0 B-complex with vitamin C Capsule 1 cap PO DAILY RF: 0 polaprezinc (zinc carnosine) 16 mg tablet,chewable PO RF: 0 mirtazapine [Remeron SolTab] 15 mg tablet,disintegrating 15 mg PO DAILY RF: 0 sodium,potassium,mag sulfates 17.5-3.13-1.6 gram recon soln 177 ml PO DAILY Qty: 354 RF: 0 Referrals: Beka Tucker DO [Primary Care Provider] -
[2020-08-29] MEDS: SODIUM CHLORIDE 0.9% 1,000 ML 1000 ML IV (14:37)
--- NOTE | 2020-08-29 15:37 | CM.SWNOTE ---
BRAKE COUPLER DINKEY note BRAKE COUPLER DINKEY consult requested for patient. Patient is a 75 y/o female who presents to this ED for 2nd time in two days with reports of decreased nutritional and fluid intake. Per RN, patient and family interested in information surrounding MPOA. BRAKE COUPLER DINKEY enters room and speaks with patient and patient daughter in law, Sarina. Sarina informs BRAKE COUPLER DINKEY that patient is currently being worked up for cancer with unknown current prognosis. Sarina and patient explain that patient has been feeling increasingly tired and is unable to make it appointments without support from family. BRAKE COUPLER DINKEY discusses HH, and both Sarina and patient express interest in PT, OT, HH aide, RN, and BRAKE [employer]PLER [employer]INKEY. Patient and Sarina state preference for [facility] as patient's PCP is affiliated. Sarina and patient discuss consideration for Hospice and ask for contact info for local agencies. BRAKE COUPLER DINKEY provides contact info for [facility] and phone number will be placed in d/c notes for patient. Sarina and patient discuss concerns regarding medical decision making for patient. Patient explains she would like Sarina and her added to POA list if patient's unavailable. BRAKE COUPLER DINKEY explained that altering a POA document would be something that they would need to discuss with an building insulation installer, and Sarina states that patient has an appt. with building insulation installer already arranged. BRAKE COUPLER DINKEY exits room and reviews above with Dr. Gibson. Dr. Gibson agreeable to HH, signs F2F, and gives verbal orders for HH. BRAKE COUPLER DINKEY will fax clinical packet to [facility]. Pl: Continue course of care ED and follow up with HH after d/c. SUBHA Salas
[2020-08-29 15:46] VITALS: BP 117/56; PULSE 85; RESP 18; O2SAT 96
== END 2020-08-29 17:21 | disposition home or self-care (01) ==
PROVIDERS: Emergency Provider Emergency Medicine; Family Provider Physician Assistant Medical; PCP Family Medicine
DX: E87.1 Hypo-osmolality and hyponatremia (principal); D64.9 Anemia, unspecified; R53.1 Weakness; Z79.82 Long term (current) use of aspirin; R11.0 Nausea; I10 Essential (primary) hypertension; E03.9 Hypothyroidism, unspecified
CPT/HCPCS: 36415; 80053; 85025; 96360; 99281; 99284

== ENCOUNTER 2020-09-01 13:16 | Observation (INO) | payer MEDICARE, SELFPAY ==
[2020-09-01] VITALS (12 sets, daily range): BP systolic 117–143; BP diastolic 57–69; PULSE 69–94; RESP 16–22; TEMP 37.1–38.2; O2SAT 96–99; BMI 32.8
--- NOTE | 2020-09-01 13:51 | PC.NURSE ---
1330 spoke with pt, states she was instructed her surgeon to check in to the ED to be admitted and monitored during bowel prep r/t colonoscopy tomorrow. She states she has no new complaints following her preop appt however was told she required monitoring r/t electrolyte imbalance. Spoke with ER MD who is contacting surgeon for clarification.
[2020-09-01 15:34] LABS: Add Manual Diff / Slide Review NO; Basophils Absolute Auto 0 /uL (0-100); Basophils Percent Auto 0.8 % (0-2); Eosinophils Absolute Auto 0 /uL (0-450); Eosinophils Percent Auto 1.5 % (2-4); Hematocrit 27.2 % (36-46); Hemoglobin 8.9 g/dL (12.0-16.0); Lymphocytes Absolute Auto 300 /uL (1100-4500); Lymphocytes Percent Auto 11.3 % (25-40); Mean Corpuscular HGB Conc 32.8 % (30-36); Mean Corpuscular Hemoglobin 28.3 PG (26-34); Mean Corpuscular Volume 86.2 fL (80-100); Monocytes Absolute Auto 200 /uL (0-900); Monocytes Percent Auto 5.3 % (3-14); Neutrophils Absolute Auto 2500 /uL (1500-7000); Neutrophils Percent Auto 81.1 % (50-75); Red Blood Cell Count 3.16 X10^6/uL (4.0-5.2); Red Cell Distribution Width 17.1 % (11.6-14.8); White Blood Cell Count 3.1 X10^3/uL (4.5-11.0)
[2020-09-01 15:37] LABS: Alanine Aminotransferase 17 IU/L (<35); Albumin 2.8 g/dL (3.5-5.0); Albumin Globulin Ratio 0.7 (1.0-2.8); Alkaline Phosphatase 44 U/L (38-126); Aspartate Aminotransferase 40 IU/L (14-36); BUN Creatinine Ratio 25.3 (6-22); Bilirubin Total 0.5 mg/dL (0.2-1.3); Blood Urea Nitrogen 21 mg/dL (7-17); Calcium 8.2 mg/dL (8.4-10.2); Carbon Dioxide 25 mmol/L (22-32); Chloride 101 mmol/L (98-107); Estimated Glomerular Filt Rate > 60.0 mL/min (>60); Globulin 3.9 g/dL (1.7-4.1); Glucose 83 mg/dL (80-110); HEMOLYSIS < 15 (0-50); Lactate (Lactic Acid) 1.2 mmol/L (0.7-2.1); Lipase 49 U/L (23-300); Magnesium 1.7 mg/dL (1.6-2.3); Potassium 4.4 mmol/L (3.4-5.1); Sodium 131 mmol/L (137-145); Total Protein 6.7 g/dL (6.3-8.2)
[2020-09-01 15:47] LABS: Platelet Count 25 X10^3/uL (150-400)
[2020-09-01 16:11] LABS: Platelet Estimate Decreased on smear
--- NOTE | 2020-09-01 16:11 | ED.RECABL ---
HPI - Recheck/Abnormal Lab/Rx General Chief Complaint: Recheck/Abnormal Lab/Rx Stated Complaint: Supervised Track for Colonoscopy and COVID Test Time Seen by Provider: 09/01/20 14:20 Source: patient and family Mode of arrival: Wheelchair History of Present Illness HPI narrative: 75-year-old woman with increasing weakness and failure to thrive has been in the emergency room 3 times in the last 3 weeks with an oncology and gynecology consults for an ovarian mass presumed to be cancer. Request was to have a General surgery consultation and colonoscopy to help with plan for presumed surgical intervention. She needs to begin her bowel prep today and is simply too weak to be able to manage this at home and Dr. Guzman has asked that she be admitted to the hospitalist service for weakness, diff is still a take the bowel prep this evening in anticipation of schedule colonoscopy to be done tomorrow. Patient presents to the emergency room for evaluation prior to admission. She reports no fevers but does report continued dry cough that looks like it has been an issue and discussed with previous physicians. Workup will be initiated and hospitalist service will be contacted. Care is reviewed with Dr. Guzman who is anticipating colonoscopy tomorrow. Related Data Home Medications Medication Instructions Recorded Confirmed B-complex with vitamin C 1 cap PO DAILY 08/14/20 08/21/20 aspirin 81 mg tablet,delayed 81 mg PO DAILY 08/14/20 08/21/20 release atorvastatin 10 mg tablet 5 mg PO DAILY 08/14/20 08/28/20 ferrous sulfate 325 mg (65 mg 325 mg PO DAILY 08/14/20 08/21/20 iron) tablet levothyroxine 175 mcg capsule 175 mcg PO DAILY 08/14/20 08/28/20 losartan 100 mg tablet 100 mg PO DAILY 08/14/20 08/21/20 mirtazapine 15 mg disintegrating 15 mg PO DAILY 08/14/20 08/28/20 tablet polaprezinc (zinc carnosine) 16 mg mg PO 08/14/20 08/21/20 chewable tablet Previous Rx's Medication Instructions Recorded sodium,potassium,mag sulfates 17.5 177 ml PO DAILY #354 ml 08/14/20 gram-3.13 gram-1.6 gram oral soln Allergies Allergy/AdvReac Type Severity Reaction Status Date / Time No Known Drug Allergies Allergy Verified 08/29/20 12:00 Review of Systems Review of Systems Narrative: Specifically denies any active bleeding, black stool or bloody taste in her mouth. No increase in superficial bruising Remainder of ROS is unremarkable except as noted in the HPI Patient History Medical History Hearing loss Hypertension Hypothyroidism Lower back pain Prediabetes Surgical History Anesthesia History of carpal tunnel surgery (~2020) Family History Grandmother Colon cancer Mother Ovarian cancer Father Prostate cancer History of heart disease Brother Bladder cancer Family/Other Bone cancer Brain cancer Social History Smoking Status: Never smoker alcohol intake: never substance use type: does not use Smoking Status: Never smoker alcohol intake frequency: 0-2 drinks per day Substance Use Type: does not use Exam Narrative Exam Narrative: General: Fatigued appearing but, in no acute distress. Able to give a complete and coherent history. HEENT: Moist mucous membranes, normal sclera with reactive pupils, Neck: No JVD, supple Respiratory: Lungs minor scattered wheezing but no rales no rhonchi. Full and symmetrical air movement Cardiac: Regular rate and rhythm no murmurs no bruits Abdomen: Soft, nontender, good bowel tones, no flank pain Skin: Warm and dry, no rashes Neurologic: Globally weak but Grossly neurologically intact with no obvious asymmetries or abnormalities Extremities: No trauma, well perfused Psych: Cooperative, appropriate insight and affect Initial Vital Signs Initial Vital Signs: Vital Signs Temperature 98.7 F 09/01/20 14:52 Pulse Rate 90 09/01/20 14:52 Respiratory Rate 22 09/01/20 14:52 Blood Pressure 143/63 H 09/01/20 14:52 Pulse Oximetry 99 09/01/20 14:52 Course Orders Ordered: ED Orders 09/01/20 14:58 Urinalysis and Microscopic Stat 09/01/20 15:20 Complete Blood Count AUTO DIFF Stat Comprehensive Metabolic Panel Stat Lactate (Lactic Acid) Stat Lipase Stat Magnesium Stat Pathologist Review (for CBC) Stat 09/01/20 16:19 COVID19 Stat 09/01/20 19:20 Lactate Dehydrogenase Stat Discontinued Medications Sodium Chloride (Normal Saline 0.9%) 1,000 mls @ 1,000 mls/hr IV BOLUS ONE Stop: 09/01/20 15:57 Last Infusion: 09/01/20 17:29 Dose: 0 mls/hr Documented by: Admin: 09/01/20 16:15 Dose: 1,000 mls/hr Documented by: HIMANSHU Vital Signs Vital signs: Vital Signs - 8 hr 09/01/20 14:52 09/01/20 16:30 09/01/20 17:00 Temperature 98.7 F Pulse Rate 90 82 69 Respiratory Rate 22 16 16 Blood Pressure 143/63 H 122/68 129/57 L Pulse Oximetry 99 98 99 MDM - Recheck/Abnormal Lab/Rx Medical Records Attestation: I reviewed the patient's medical records. Lab Data Attestation: I reviewed the patient's lab results. Result diagrams: 09/01/20 15:20 09/01/20 15:20 Labs: Lab Results 09/01/20 09/01/20 09/01/20 Range/Units 15:20 15:20 15:20 WBC 3.1 L (4.5-11.0) X10^3/uL RBC 3.16 L (4.0-5.2) X10^6/uL Hgb 8.9 L (12.0-16.0) g/dL Hct 27.2 L (36-46) % MCV 86.2 (80-100) fL MCH 28.3 (26-34) PG MCHC 32.8 (30-36) % RDW 17.1 H (11.6-14.8) % Plt Count 25 L* (150-400) X10^3/uL Neut % (Auto) 81.1 H (50-75) % Lymph % (Auto) 11.3 L (25-40) % [place] % (Auto) 5.3 (3-14) % Eos % (Auto) 1.5 L (2-4) % Baso % (Auto) 0.8 (0-2) % Neut # (Auto) 2500 (0875-5291) /uL Lymph # (Auto) 300 L (6374-5675) /uL [place] # (Auto) 200 (0-900) /uL Eos # (Auto) 0 (0-450) /uL Baso # (Auto) 0 (0-100) /uL Platelet Estimate Decreased on smear Plt Morphology Comment 2+ large platelets RBC Morphology See below Spherocytes 1+ H Sodium 131 L (137-145) mmol/L Potassium 4.4 (3.4-5.1) mmol/L Chloride 101 (98-107) mmol/L Carbon Dioxide 25 (22-32) mmol/L BUN 21 H (7-17) mg/dL Creatinine 0.83 (0.52-1.04) mg/dL Estimated GFR > 60.0 (>60) mL/min BUN/Creatinine Ratio 25.3 H (6-22) Glucose 83 (80-110) mg/dL Lactate 1.2 (0.7-2.1) mmol/L Calcium 8.2 L (8.4-10.2) mg/dL Magnesium 1.7 (1.6-2.3) mg/dL Total Bilirubin 0.5 (0.2-1.3) mg/dL AST 40 H (14-36) IU/L ALT 17 (<35) IU/L Alkaline Phosphatase 44 (38-126) U/L Total Protein 6.7 (6.3-8.2) g/dL Albumin 2.8 L (3.5-5.0) g/dL Globulin 3.9 (1.7-4.1) g/dL Albumin/Globulin Ratio 0.7 L (1.0-2.8) Lipase 49 (23-300) U/L SARS-CoV-2 (PCR) (Negative) 09/01/20 Range/Units 16:19 WBC (4.5-11.0) X10^3/uL RBC (4.0-5.2) X10^6/uL Hgb (12.0-16.0) g/dL Hct (36-46) % MCV (80-100) fL MCH (26-34) PG MCHC (30-36) % RDW (11.6-14.8) % Plt Count (150-400) X10^3/uL Neut % (Auto) (50-75) % Lymph % (Auto) (25-40) % [place] % (Auto) (3-14) % Eos % (Auto) (2-4) % Baso % (Auto) (0-2) % Neut # (Auto) (4115-6227) /uL Lymph # (Auto) (4783-8814) /uL [place] # (Auto) (0-900) /uL Eos # (Auto) (0-450) /uL Baso # (Auto) (0-100) /uL Platelet Estimate Plt Morphology Comment RBC Morphology Spherocytes Sodium (137-145) mmol/L Potassium (3.4-5.1) mmol/L Chloride (98-107) mmol/L Carbon Dioxide (22-32) mmol/L BUN (7-17) mg/dL Creatinine (0.52-1.04) mg/dL Estimated GFR (>60) mL/min BUN/Creatinine Ratio (6-22) Glucose (80-110) mg/dL Lactate (0.7-2.1) mmol/L Calcium (8.4-10.2) mg/dL Magnesium (1.6-2.3) mg/dL Total Bilirubin (0.2-1.3) mg/dL AST (14-36) IU/L ALT (<35) IU/L Alkaline Phosphatase (38-126) U/L Total Protein (6.3-8.2) g/dL Albumin (3.5-5.0) g/dL Globulin (1.7-4.1) g/dL Albumin/Globulin Ratio (1.0-2.8) Lipase (23-300) U/L SARS-CoV-2 (PCR) Negative (Negative) MDM Narrative Medical decision making narrative: Woman with ovarian cystic mass, increasing weakness now with new thrombocytopenia. Needing to undergo colonoscopy prior to remainder of cancer staging workup. Too weak to complete colon prep at home so will be admitted to the hospitalist service. Will review the new thrombocytopenia with Dr. Guzman to see if he wants a transfusion prior to colonoscopy. There is no evidence of active bleeding at this time. Spoke with Dr. Bautista, hospitalist. Will review new findings with Dr. Uribe to see if there is any recommendations and if we should continue to plan on colonoscopy for tomorrow. 540p reviewed with Dr. Guzman. He agreed with discussing with Oncology. He feels that the colonoscopy is likely not going to add a significant amount to her workup and may not be worth the overall risk at this time. If still felt to be vital to the workup he would want platelets transfused prior to the procedure. [address] Marsh, configuration management advisor for Dr Uribe. Agrees that colonoscopy may not offer additional information and will be particularly safe with this level of thrombocytopenia. He agreed that bone marrow biopsy may be the most appropriate next step. He will discuss this case with Dr. Cruz who is in clinic in [place] the next [address] Uribe, who is in clinic in [place] the next 2 days. Between these 3 physicians they will figure out how to help direct continued hospital workup and arrange for bone marrow biopsy. He asked for a pheripheral smear to go for hemopathology. This has been ordered. Also requested LDH, this too has been added. Care is reviewed with Mr. Barrera, hospitalist [facility]. He except as admission. Will plan on not proceeding with colonoscopy tomorrow in light of the thrombocytopenia. Care is reviewed with patient and questions are answered. Discharge Plan Departure Patient Disposition: Admitted as Observation Clinical Impression: Pancytopenia, Ovarian mass, Weight loss, Weakness
[2020-09-01 16:12] LABS: Spherocytes 1+
[2020-09-01] MEDS: SODIUM CHLORIDE 0.9% 1,000 ML 1000 ML IV (16:15)
[2020-09-01 16:52] LABS: COVID19 -Nasal RAPID Negative (Negative)
[2020-09-01 19:35] LABS: Lactate Dehydrogenase 488 U/L (313-618)
--- NOTE | 2020-09-01 21:25 | P.HP_ITS ---
History of Present Illness History of Present Illness Date Patient Seen: 09/01/20 Time Patient Seen: 20:54 Chief complaint: Supervised Track for Colonoscopy and COVID Test Narrative: Ms Carly Mcneal is a 75 year-old female with a past medical history significant for hypertension, hypothyroidism, prediabetes, low back pain and osteoarthritis presents to ER 3 times in 3 weeks for progressive weakness. The patient is recently been found to have an ovarian cystic mass concerning for neoplasm. The patient has been seen and evaluated by Dr. Uribe Oncology, Dr. Tello gynecology, Dr. Guzman general surgery and consideration of colonoscopy. She would was sent to the ER for admission and bowel prep for the procedure due to her debilitated state and weakness. The patient additionally reports poor appetite and food aversion but denies abdominal pain, nausea vomiting. She did experience a weight loss of 50 lbs since early June 2020. The patient has undergone recent imaging including a CT of the chest abdomen and pelvis which finds persistent left ovarian cyst like structure with mildly prominent pelvic lymph nodes concerning for neoplastic process and a CT of head which finds no acute intracranial processes, cerebral volume loss with micro vascular ischemic changes. He has also had an echocardiogram completed on 08/26/2020 which finds normal LV structure and function, EF of 60-65% and normal RV structure and function. The patient's weakness has been progressive to the point she feels unsteady on her feet and has sustained falls and has hit her head without loss conscious neck or back pain. The patient typically ambulates with a walker related to severe osteoarthritis of the left knee for which she was being evaluated for total knee replacement. Patient denies complaints of acute or chronic pain, has had no recent illness and denies fevers or chills. She denies complaints of chest pain or palpitations, shortness of breath. She has a chronic dry nonproductive cough worse when lying down at night. She has had no epigastric or abdominal pain and denies hematemesis, hematochezia or melena. She denies urinary symptoms. Upon arrival to the ER the patient is afebrile with temperature 98.7?, heart rate of 90, blood pressure 143/63, respirations 22 saturating 90% on air. No imaging is completed on this admission. On laboratory analysis the patient is found to be pancytopenic with white count of 3.1, hemoglobin of 8.9 and hematocrit of 27.2 and platelets of 25. On chemistry she is mildly hyponatremic with sodium 131 and calcium is 8.2 correcting to 9.16 of with an albumin of 2.8. Remainder of chemistries are unremarkable in her nonfasting glucose is 83, BUN 21 creatinine 0.83. On liver functions she has a total bilirubin of 0.5, AST of 40, ALT 17 alkaline phosphatase 44. Lactic acid is 1.2. COVID screening is negative. Hospital Services contacted for admission and it was requested that general surgery be notified of acute thrombocytopenia without active bleeding. Requested Oncology evaluation necessity of colonoscopy. It is noted the patient had a platelet count of 124 on 08/28/2020, 96 on 08/29/2020 and today platelets are 25. Per report Dr. Guzman felt contacting Oncology was appropriate ever thought that colonoscopy should go forward the patient need to platelet transfusion. Oncology was contacted and felt this juncture she proceed with a bone biopsy and hold on colonoscopy. The patient is admitted to the hospitalist service for generalized weakness and pancytopenia. PCP: Beka Tucker Patient History Medical History Anemia Hearing loss Hypertension Hypothyroidism Lower back pain Ovarian mass Prediabetes Surgical History Anesthesia History of carpal tunnel surgery (~2019) Family & Social History Family History Grandmother Colon cancer Mother Ovarian cancer Father Prostate cancer History of heart disease Brother Bladder cancer Family/Other Bone cancer Brain cancer Tobacco & Substance use: Smoking Status Never smoker alcohol intake never alcohol intake frequency 0-2 drinks per day Substance Use Type does not use Meds Home Medications and Allergies Home Medications Medication Instructions Recorded Confirmed Type B-complex with vitamin C 1 cap PO DAILY 08/14/20 09/01/20 History atorvastatin 10 mg tablet 5 mg PO DAILY 08/14/20 09/01/20 History levothyroxine 175 mcg capsule 175 mcg PO DAILY 08/14/20 09/01/20 History polaprezinc (zinc carnosine) 16 mg 16 mg PO DAILY 08/14/20 09/01/20 History chewable tablet Allergies Allergy/AdvReac Type Severity Reaction Status Date / Time No Known Drug Allergies Allergy Verified 08/29/20 12:00 Review of Systems Review of Systems ROS: Yes All systems reviewed with the patient and are negative except as otherwise documented Exam Vital Signs (past 8 hours): - 09/01/20 14:52 09/01/20 16:30 09/01/20 17:00 Temperature 98.7 F Pulse Rate 90 82 83 Respiratory Rate 22 16 16 Blood Pressure 143/63 H 122/68 129/57 L Pulse Oximetry 99 98 99 09/01/20 17:30 09/01/20 18:00 09/01/20 18:30 Temperature Pulse Rate 84 91 H 89 Respiratory Rate Blood Pressure 117/58 L 137/60 126/60 Pulse Oximetry 99 98 98 09/01/20 19:00 09/01/20 19:30 09/01/20 20:45 Temperature 100.7 F H Pulse Rate 92 H 94 H 93 H Respiratory Rate 18 Blood Pressure 130/63 124/69 Pulse Oximetry 98 96 98 09/01/20 20:55 Temperature Pulse Rate 80 Respiratory Rate 18 Blood Pressure 122/58 L Pulse Oximetry 98 Oxygen Delivery Method Room Air Narrative Exam Narrative: GENERAL APPEARANCE: well developed, obese female with BMI of 32.8 with recent weight loss of approximately 22 kg lying semi recumbent in bed in no acute distress. HEENT: Atraumatic,, PERRLA, conjunctiva clear, EOMs intact without nystagmus, no sinus tenderness to percussion, no rhinorrhea, mucous membranes are moist and pink without lesions or exudate. NECK/THYROID: neck supple, no JVD, no carotid bruit, no thyromegaly, trachea midline. LYMPH NODES: no cervical or supraclavicular lymphadenopathy. SKIN: [place], warm and dry, no visible lesions, rashes, Edward bruising or mira chiae. HEART: regular rate and rhythm, S1-S2, 2/6 systolic murmur, no rubs or gallops, brisk capillary refill, 1+ bilateral lower extremity edema LUNGS: clear to auscultation bilaterally, no coarseness crackles or wheezing, no cough present CHEST: Symmetrical movement, no accessory muscle use, good tidal volume, no pain to AP and lateral compression. ABDOMEN: Soft, obese without distention, no abdominal tenderness, no guarding or peritoneal signs, no organomegaly, no flank or suprapubic tenderness, active bowel tones. BACK: Nontender to palpation, EXTREMITIES: Pain with range of motion left knee, moves all extremities, strength is 5/5 and symmetrical, no clubbing or cyanosis. NEUROLOGIC: AAO x4, no focal neurologic deficits, cranial nerves II-XII grossly intact, sensation intact to light touch, hearing grossly normal to speech. PSYCH: Alert and briskly interactive, linear thought processes, cooperative, appropriate with stable behavior Objective Labs Result Diagrams: 09/01/20 15:20 09/01/20 15:20 Labs: Laboratory Results - last 24 hr 09/01/20 09/01/20 09/01/20 15:20 15:20 15:20 WBC 3.1 L RBC 3.16 L Hgb 8.9 L Hct 27.2 L MCV 86.2 MCH 28.3 MCHC 32.8 RDW 17.1 H Plt Count 25 L* Neut % (Auto) 81.1 H Lymph % (Auto) 11.3 L [place] % (Auto) 5.3 Eos % (Auto) 1.5 L Baso % (Auto) 0.8 Neut # (Auto) 2500 Lymph # (Auto) 300 L [place] # (Auto) 200 Eos # (Auto) 0 Baso # (Auto) 0 Platelet Estimate Decreased on smear Plt Morphology Comment 2+ large platelets RBC Morphology See below Spherocytes 1+ H Sodium 131 L Potassium 4.4 Chloride 101 Carbon Dioxide 25 BUN 21 H Creatinine 0.83 Estimated GFR > 60.0 BUN/Creatinine Ratio 25.3 H Glucose 83 Lactate 1.2 Calcium 8.2 L Magnesium 1.7 Total Bilirubin 0.5 AST 40 H ALT 17 Alkaline Phosphatase 44 Lactate Dehydrogenase Total Protein 6.7 Albumin 2.8 L Globulin 3.9 Albumin/Globulin Ratio 0.7 L Lipase 49 SARS-CoV-2 (PCR) 09/01/20 09/01/20 15:20 16:19 WBC RBC Hgb Hct MCV MCH MCHC RDW Plt Count Neut % (Auto) Lymph % (Auto) [place] % (Auto) Eos % (Auto) Baso % (Auto) Neut # (Auto) Lymph # (Auto) [place] # (Auto) Eos # (Auto) Baso # (Auto) Platelet Estimate Plt Morphology Comment RBC Morphology Spherocytes Sodium Potassium Chloride Carbon Dioxide BUN Creatinine Estimated GFR BUN/Creatinine Ratio Glucose Lactate Calcium Magnesium Total Bilirubin AST ALT Alkaline Phosphatase Lactate Dehydrogenase 488 Total Protein Albumin Globulin Albumin/Globulin Ratio Lipase SARS-CoV-2 (PCR) Negative Assessment & Plan Assessment & Plan narrative: This is a 75-year-old female patient who has experienced progressive weakness presenting to the ER 3 times the last 3 weeks within identified ovarian cystic mass presumed to be neoplastic in origin with associated mildly prominent pelvic lymph nodes. The patient has been evaluated by Dr. Uribe, Oncology Dr. Tello, gynecology, and Dr. Guzman who has been consulted for colonoscopy requests the patient to come to the ER for admission for bowel prep as she is too weak to complete the process at home. 1. Pancytopenia, acute on chronic, present on admission, active -patient has chronic anemia with leukopenia and over the last several days has developed marked thrombocytopenia with platelets of 124 on 08/28/2020 decreasing to 25 today. -documented by Dr. Uribe: CBC were normal on 01/15/2020 with WBC 4, H/H 13.1/41.5, and PLT 447 277. But on 07/16/2020, CBC/Ds showed WBC 5.5, H/H 9/27.7, PLT 447. Follow up CBC/Ds on 08/04/2020 showed WBC 3.1, H/H 8.8/27.7, and PLT 407. -the patient reports no untoward bleeding and has been checking her stools for blood and none identified. She reports no abnormal bruising or bleeding. -in consultation with surgery and Oncology colonoscopy is placed on hold and the patient will undergo bone marrow biopsy. -ordered type and screen for anemia and possible platelet transfusion. -ordered Protonix 20 mg twice daily for GI protection since the patient describes a dry cough when lying down at night concerning for possible GERD. -consult to Oncology. Ordered IR bone marrow biopsy tomorrow. 2. Ovarian cystic mass, present on admission, active. -ovarian mass measuring 5.5 cm, multiple mildly enlarged sidewall and iliac lymph nodes identified on a CT scan 08/07/2020. -patient was evaluated by Dr. Uribe on 08/18 2020 for weight loss, fatigue, anemia, leukopania and was found to have ovarian cysts bilaterally on CT and US studies in Jul 2020,suspicious for ovarian cancer. -patient subsequently evaluated by Dr. Tello OBGYTra, who noted a discussion with Dr. Landers, CEA, and CA - 19.9 added for blood work, EGD added to schedule colonoscopy on September 02, 2020. -in consultation with Oncology and Dr. Guzman colonoscopy is on hold due to low platelets as noted above. 3. Essential hypertension, chronic, stable. -patient presents with a blood pressure 143/63 on admission improving to 122/58 on admission to the acute care floor demonstrating adequate blood pressure control. -The patient states she has not been taking any blood pressure medications though pharmacy review identifies prescriptions for Losartan 100 mg and Lasix 40 mg both daily. -will monitor blood presser and add in antihypertensives as warranted. 4. Acquired hypothyroidism, chronic, stable. -will continue current regimen of levothyroxine 175 mcg daily. 5. History of pre diabetes, chronic, stable -serum glucose is 83 on initial labs. -patient has had poor appetite with poor p.o. intake losing 22 kilos in 3 months. -patient has been prescribed mirtazapine for appetite stimulant which the patient is not taking. -ordered regular diet with medium consistent carbohydrate, NPO at midnight pending bone biopsy -IV normal saline 84 mL per hour. DVT prophylaxis: Contraindicated IV fluid: Normal saline 84 cc/hour Diet: Regular diet with medium consistent carbohydrate for tender, NPO at midnight pending bone marrow biopsy. Code status: Patient wishes to be DNR and designates her Dave foley to be her surrogate decision maker. The patient is admitted to the hospital due to generalized weakness and inability to return home safely, pancytopenia with acute thrombocytopenia at risk for bleeding requiring further oncology evaluation and bone marrow biopsy. The patient is admitted as observation status with expected length of stay to be less than 2 midnights. COVID-19 COVID-19 status: Negative Result date/Date tested (Pos, Neg/Pending): 09/01/20 Scores GCS [place] coma scale eye opening: Spontaneous [place] coma scale verbal response: Orientated [place] coma scale motor response: Obey commands [place] coma scale total score: 15
[2020-09-01 21:42] LABS: INR 1.2 (0.9-1.3); Prothrombin Time 13.6 SECONDS (10.1-12.7)
[2020-09-01 21:44] LABS: PTT Partial Thromboplastin Tim 39 SECONDS (26.4-36.2)
[2020-09-01] MEDS: ACETAMINOPHEN 325 MG TABLET 650 MG PO (21:46)
[2020-09-01] MEDS: SODIUM CHLORIDE 0.9% FLUSH 10 ML IV (21:46)
[2020-09-01] MEDS: PANTOPRAZOLE 40 MG VIAL 20 MG IV (21:46)
[2020-09-01] MEDS: SODIUM CHLORIDE 0.9% 1,000 ML 84 ML IV (21:47)
[2020-09-02 00:24] VITALS: BP 119/66; PULSE 91; RESP 20; TEMP 36.9; O2SAT 99
[2020-09-02 00:31] LABS: Appearance Urine UA CLEAR; Bilirubin Urine UA NEGATIVE (NEGATIVE); Color Urine UA YELLOW; Glucose Urine UA NEGATIVE (Negative); Ketones Urine UA NEGATIVE (NEGATIVE); Leukocyte Esterase Urine UA NEGATIVE (NEGATIVE); Nitrite Urine UA NEGATIVE (Negative); Occult Blood Urine UA NEGATIVE (Negative); Protein Urine UA NEGATIVE (Negative); Urobilinogen Urine UA 0.2 E.U./dL (0.2)
[2020-09-02 00:35] LABS: Calcium Oxalate Crystals Urine Occasional; RBC Urine 0-1/HPF (0-5/HPF); Squamous Epithelial Cell Urine 1-5 /HPF (0-5/HPF); WBC Urine 0-1/HPF (0-5/HPF)
[2020-09-02 00:36] LABS: Bacteria Urine Few (2-10); Hyaline Casts Urine 0-1/LPF
[2020-09-02 00:37] LABS: Culture Indicated Urine Cult Not Indicated
[2020-09-02 05:20] VITALS: BP 118/64; PULSE 83; RESP 20; TEMP 36.5; O2SAT 97
[2020-09-02 05:32] LABS: Add Manual Diff / Slide Review NO; Basophils Absolute Auto 0 /uL (0-100); Basophils Percent Auto 0.7 % (0-2); Eosinophils Absolute Auto 0 /uL (0-450); Eosinophils Percent Auto 1.5 % (2-4); Hemoglobin 7.5 g/dL (12.0-16.0); Lymphocytes Absolute Auto 400 /uL (1100-4500); Lymphocytes Percent Auto 17.6 % (25-40); Mean Corpuscular HGB Conc 32.6 % (30-36); Mean Corpuscular Hemoglobin 28.2 PG (26-34); Mean Corpuscular Volume 86.6 fL (80-100); Monocytes Absolute Auto 200 /uL (0-900); Monocytes Percent Auto 9.8 % (3-14); Neutrophils Absolute Auto 1500 /uL (1500-7000); Neutrophils Percent Auto 70.4 % (50-75); Red Blood Cell Count 2.65 X10^6/uL (4.0-5.2); Red Cell Distribution Width 16.8 % (11.6-14.8); White Blood Cell Count 2.2 X10^3/uL (4.5-11.0)
[2020-09-02 05:40] LABS: BUN Creatinine Ratio 24.2 (6-22); Blood Urea Nitrogen 16 mg/dL (7-17); Calcium 7.7 mg/dL (8.4-10.2); Carbon Dioxide 24 mmol/L (22-32); Chloride 105 mmol/L (98-107); Estimated Glomerular Filt Rate > 60.0 mL/min (>60); Glucose 77 mg/dL (80-110); HEMOLYSIS < 15 (0-50); Sodium 131 mmol/L (137-145)
[2020-09-02 06:12] LABS: Platelet Count 17 X10^3/uL (150-400)
[2020-09-02 06:14] LABS: Anisocytosis 1+; Hypochromasia 1+; Platelet Estimate Decreased on smear
[2020-09-02 06:15] LABS: Platelet Morphology Comment 2+ LARGE PLATELETS
[2020-09-02 08:00] VITALS: BP 125/58; PULSE 77; RESP 16; TEMP 36.8; O2SAT 99
[2020-09-02] MEDS: LEVOTHYROXINE 25 MCG TABLET PO (08:40)
[2020-09-02] MEDS: LEVOTHYROXINE 150 MCG TABLET PO (08:40)
[2020-09-02] MEDS: FERROUS SULFATE 325 MG TABLET PO (08:40)
[2020-09-02] MEDS: ATORVASTATIN 20 MG TABLET 5 MG PO (08:40)
[2020-09-02] MEDS: SODIUM CHLORIDE 0.9% FLUSH 10 ML IV ×2 (08:41)
[2020-09-02] MEDS: PANTOPRAZOLE 40 MG VIAL 20 MG IV ×2 (08:41→20:34)
--- NOTE | 2020-09-02 08:46 | ONC.MSW ---
Late Entry: T/C 08/27/20 Description: Palliative Care Referral Activity: REFRACTORY REPAIRER spent a lengthy amount of time on the phone with [id number], Sarina, in providing teaching, coping support, and resources to address family coping needs and pt's declining medical status. Completed a Palliative Care referral for [facility] in order to assist with pain/symptom management. Will continue to monitor closely for further assistance needs.
--- NOTE | 2020-09-02 09:53 | OT.IPNOTE ---
Per Dr Bautista, hold therapy today due to pt getting a bone marrow biopsy, to check on pt tomorrow if appropriate.
[2020-09-02 12:00] VITALS: BP 117/56; PULSE 76; RESP 16; TEMP 37.1; O2SAT 98
--- NOTE | 2020-09-02 12:26 | PT-IP ANOTE ---
Pt on hold for PT eval. pt with Hgb 7.5 Hct 23 and platelet count:17 per doctor during rounds: pt on hold and is pending bone marrow biopsy.
--- NOTE | 2020-09-02 13:04 | PT-IP ANOTE ---
Checked with nurse and stated that there is no bone biopsy sched for now due to pt's low platelet count and that Dr. Bautista will talk to the doctor who will do biopsy. will continue to hold on PT eval. will f/u tomorrow.
[2020-09-02] MEDS: BENZOCAINE/MENTHOL 1 LOZ PKT 1 EACH PO ×2 (13:13→22:49)
[2020-09-02] MEDS: ACETAMINOPHEN 325 MG TABLET 650 MG PO (13:13)
[2020-09-02 13:49] LABS: Hematocrit 23.5 % (36-46); Hemoglobin 7.7 g/dL (12.0-16.0); Mean Corpuscular HGB Conc 32.9 % (30-36); Mean Corpuscular Hemoglobin 28.3 PG (26-34); Red Blood Cell Count 2.73 X10^6/uL (4.0-5.2); White Blood Cell Count 2.6 X10^3/uL (4.5-11.0)
[2020-09-02 13:52] LABS: Platelet Count 14 X10^3/uL (150-400)
[2020-09-02 15:15] VITALS: BP 125/67; PULSE 84; RESP 18; TEMP 37.5; O2SAT 94
--- NOTE | 2020-09-02 15:33 | PM.PN.1 ---
Subjective Subjective Date Patient Seen: 09/02/20 Interval history: The patient was seen examined at bedside. She was admitted overnight. She has no acute complaints. She denies any easy bruising, bleeding, black or bloody stools. ROS is otherwise negative. Exam Vital Signs (past 8 hours): - 09/02/20 08:00 09/02/20 12:00 09/02/20 15:15 Temperature 98.2 F 98.8 F 99.5 F Pulse Rate 77 76 84 Respiratory Rate 16 16 18 Blood Pressure 125/58 L 117/56 L 125/67 Pulse Oximetry 99 98 94 Oxygen Delivery Method Room Air Oxygen Flow Rate 0 Narrative Exam Narrative: Const General: cooperative Orientation: alert, awake and oriented x3 HENMT Head: normal to inspection, normocephalic and atraumatic Eyes General: appearance normal, both eyes and all related structures Pupils: PERRL EOM: EOM intact bilaterally Neck Neck: normal visual inspection and full ROM Chest Chest: normal inspection of the chest and normal palpation of entire chest wall Resp Effort & Inspection: normal respiratory effort Auscultation: no rales, no rhonchi and no wheezes Cardio Palpation: normal PMI Rate: regular rate Rhythm: regular rhythm Heart Sounds: S1 normal and S2 normal GI Inspection: normal to inspection Palpation: soft, No guarding and No tender Auscultation: normal bowel sounds Neuro General: patient alert, patient awake, patient oriented x3 and CN's II-XI intact bilaterally Motor: muscle tone normal throughout Sensory Exam: no sensory deficits noted Extrem General: normal to inspection Psych Mood: congruent mood Affect: normal affect Attitude: cooperative Thought Content: normal Objective Labs Result Diagrams: 09/02/20 13:33 09/02/20 05:12 Labs: Laboratory Results - last 24 hr 09/01/20 09/01/20 09/01/20 15:20 15:20 15:20 WBC 3.1 L RBC 3.16 L Hgb 8.9 L Hct 27.2 L MCV 86.2 MCH 28.3 MCHC 32.8 RDW 17.1 H Plt Count 25 L* Neut % (Auto) 81.1 H Lymph % (Auto) 11.3 L [place] % (Auto) 5.3 Eos % (Auto) 1.5 L Baso % (Auto) 0.8 Neut # (Auto) 2500 Lymph # (Auto) 300 L [place] # (Auto) 200 Eos # (Auto) 0 Baso # (Auto) 0 Platelet Estimate Decreased on smear Plt Morphology Comment 2+ large platelets RBC Morphology See below Hypochromasia Anisocytosis Spherocytes 1+ H PT INR APTT Sodium 131 L Potassium 4.4 Chloride 101 Carbon Dioxide 25 BUN 21 H Creatinine 0.83 Estimated GFR > 60.0 BUN/Creatinine Ratio 25.3 H Glucose 83 Lactate 1.2 Calcium 8.2 L Magnesium 1.7 Total Bilirubin 0.5 AST 40 H ALT 17 Alkaline Phosphatase 44 Lactate Dehydrogenase Total Protein 6.7 Albumin 2.8 L Globulin 3.9 Albumin/Globulin Ratio 0.7 L Lipase 49 Urine Color Urine Appearance Urine pH Ur Specific [place] Urine Protein Urine Glucose (UA) Urine Ketones Urine Occult Blood Urine Nitrate Urine Bilirubin Urine Urobilinogen Ur Leukocyte Esterase Urine RBC Urine WBC Ur Squamous Epith Cells Calcium Oxalate Crystal Urine Bacteria Hyaline Casts Ur Culture Indicated? SARS-CoV-2 (PCR) Blood Type Antibody Screen 09/01/20 09/01/20 09/01/20 15:20 15:20 16:19 WBC RBC Hgb Hct MCV MCH MCHC RDW Plt Count Neut % (Auto) Lymph % (Auto) [place] % (Auto) Eos % (Auto) Baso % (Auto) Neut # (Auto) Lymph # (Auto) [place] # (Auto) Eos # (Auto) Baso # (Auto) Platelet Estimate Plt Morphology Comment RBC Morphology Hypochromasia Anisocytosis Spherocytes PT 13.6 H INR 1.2 APTT 39 H Sodium Potassium Chloride Carbon Dioxide BUN Creatinine Estimated GFR BUN/Creatinine Ratio Glucose Lactate Calcium Magnesium Total Bilirubin AST ALT Alkaline Phosphatase Lactate Dehydrogenase 488 Total Protein Albumin Globulin Albumin/Globulin Ratio Lipase Urine Color Urine Appearance Urine pH Ur Specific [place] Urine Protein Urine Glucose (UA) Urine Ketones Urine Occult Blood Urine Nitrate Urine Bilirubin Urine Urobilinogen Ur Leukocyte Esterase Urine RBC Urine WBC Ur Squamous Epith Cells Calcium Oxalate Crystal Urine Bacteria Hyaline Casts Ur Culture Indicated? SARS-CoV-2 (PCR) Negative Blood Type Antibody Screen 09/01/20 09/02/20 09/02/20 21:40 00:27 05:12 WBC 2.2 L RBC 2.65 L Hgb 7.5 L Hct 23.0 L MCV 86.6 MCH 28.2 MCHC 32.6 RDW 16.8 H Plt Count 17 L* Neut % (Auto) 70.4 Lymph % (Auto) 17.6 L [place] % (Auto) 9.8 Eos % (Auto) 1.5 L Baso % (Auto) 0.7 Neut # (Auto) 1500 Lymph # (Auto) 400 L [place] # (Auto) 200 Eos # (Auto) 0 Baso # (Auto) 0 Platelet Estimate Decreased on smear Plt Morphology Comment 2+ large platelets RBC Morphology See below Hypochromasia 1+ H Anisocytosis 1+ H Spherocytes PT INR APTT Sodium Potassium Chloride Carbon Dioxide BUN Creatinine Estimated GFR BUN/Creatinine Ratio Glucose Lactate Calcium Magnesium Total Bilirubin AST ALT Alkaline Phosphatase Lactate Dehydrogenase Total Protein Albumin Globulin Albumin/Globulin Ratio Lipase Urine Color Yellow Urine Appearance Clear Urine pH 5.0 Ur Specific [place] 1.010 Urine Protein Negative Urine Glucose (UA) Negative Urine Ketones Negative Urine Occult Blood Negative Urine Nitrate Negative Urine Bilirubin Negative Urine Urobilinogen 0.2 Ur Leukocyte Esterase Negative Urine RBC 0-1/hpf Urine WBC 0-1/hpf Ur Squamous Epith Cells 1-5 /hpf D Calcium Oxalate Crystal Occasional H Urine Bacteria Few (2-10) H Hyaline Casts 0-1/lpf Ur Culture Indicated? Cult not indicated SARS-CoV-2 (PCR) Blood Type A Positive Antibody Screen Negative 09/02/20 09/02/20 05:12 13:33 WBC 2.6 L RBC 2.73 L Hgb 7.7 L Hct 23.5 L MCV 86.0 MCH 28.3 MCHC 32.9 RDW 17.0 H Plt Count 14 L* Neut % (Auto) Lymph % (Auto) [place] % (Auto) Eos % (Auto) Baso % (Auto) Neut # (Auto) Lymph # (Auto) [place] # (Auto) Eos # (Auto) Baso # (Auto) Platelet Estimate Plt Morphology Comment RBC Morphology Hypochromasia Anisocytosis Spherocytes PT INR APTT Sodium 131 L Potassium 4.0 Chloride 105 Carbon Dioxide 24 BUN 16 Creatinine 0.66 Estimated GFR > 60.0 BUN/Creatinine Ratio 24.2 H Glucose 77 L Lactate Calcium 7.7 L Magnesium Total Bilirubin AST ALT Alkaline Phosphatase Lactate Dehydrogenase Total Protein Albumin Globulin Albumin/Globulin Ratio Lipase Urine Color Urine Appearance Urine pH Ur Specific [place] Urine Protein Urine Glucose (UA) Urine Ketones Urine Occult Blood Urine Nitrate Urine Bilirubin Urine Urobilinogen Ur Leukocyte Esterase Urine RBC Urine WBC Ur Squamous Epith Cells Calcium Oxalate Crystal Urine Bacteria Hyaline Casts Ur Culture Indicated? SARS-CoV-2 (PCR) Blood Type Antibody Screen [facility] Medical History Anemia Hearing loss Hypertension Hypothyroidism Lower back pain Ovarian mass Prediabetes Surgical History Anesthesia History of carpal tunnel surgery (~2019) Family History Grandmother Colon cancer Mother Ovarian cancer Father Prostate cancer History of heart disease Brother Bladder cancer Family/Other Bone cancer Brain cancer Social History household members: spouse Smoking Status: Never smoker alcohol intake: never substance use type: does not use Assessment & Plan Assessment & Plan narrative: Assessment & Plan narrative: This is a 75-year-old female patient who has experienced progressive weakness presenting to the ER 3 times the last 3 weeks within identified ovarian cystic mass presumed to be neoplastic in origin with associated mildly prominent pelvic lymph nodes. The patient was found to be pancytopenic with worsening thrombocytopenia and is being admitted to the hospital for further care. #. Pancytopenia, acute on chronic, present on admission, active #. ITP The patient is chronically pancytopenic however recently she has been found to have downtrending platelet count. On 08/28 her platelets were 124, on 09/01 her platelet count was down to 25. She was initially admitted with plan for IR bone marrow biopsy, however IR does not perform bone marrow biopsies in this hospital. The case was further discussed with Dr. Uribe who recommended starting the patient on dexamethasone 40 mg daily for 4 days for presumed ITP. Will continue to monitor blood counts. Plan transfusion for platelet count less than 10,000 or active bleeding. Started on Protonix for GI protection and possible GERD. #. Ovarian cystic mass, present on admission, active. She has an ovarian mass measuring 5.5 cm, multiple mildly enlarged sidewall and iliac lymph nodes identified on a CT scan 08/07/2020. Patient was evaluated by Dr. Uribe on 08/18 2020 for weight loss, fatigue, anemia, leukopenia and was found to have ovarian cysts bilaterally on CT and US studies in Jul 2020,suspicious for ovarian cancer. Patient subsequently evaluated by Dr. Tello OBSAY. Continue outpatient care. #. Essential hypertension, chronic, stable. History of hypertension on losartan and Lasix at home. These have been held on admission. Resume as needed. #. Acquired hypothyroidism, chronic, stable. -will continue current regimen of levothyroxine 175 mcg daily. DVT prophylaxis: SCDs Code status: Patient wishes to be DNR and designates her Dave foley to be her surrogate decision maker. COVID-19 COVID-19 status: Negative
--- NOTE | 2020-09-02 15:47 | CM.DANOTE ---
DCP ASSESSMENT: Patient is a pleasant 75 year-old female who was admitted initially for elective colonoscopy. Changed to being admitted for generalized weakness, pancytopenia and acute thrombocytopenia requiring further oncology evaluation. PCP Beka Tucker and Dr. Uribe is oncologist. Primary Payer Medicare and [facility]. FINISHING INSPECTOR and FINISHING INSPECTOR Student met with patient at bedside and her [id number] Sarina this date. Patient was alert and oriented x3. Educated both on role of SW and discharge planning, provided contact information. She has had three ER admissions in the last three weeks. Recent tests have shown an ovarian cystic mass concerning for a neoplasm. She is pending remainder of CA staging work-up. Colonoscopy (initial reason for this scheduled hospital admission) has been put on hold. Currently bone marrow biopsy pending. Patient lives at home with and has been independent with ADL?s. However, [id number] states she has been weaker the last three weeks. Patient utilize a FWW at home for ambulation and daughter has been providing transportation. Patient and [id number] brought up medical durable power of state attorney, provided patient with education and DPOA paperwork. Possible notary needed during hospital stay. Per chart review and verbal confirmation from JUAN Lisset Sheridan-Erna a palliative care referral has been imitated with [employer] [facility]. PLAN: Anticipate home when medically stable. CM Team to follow patient closely. Discharge Planning/Care Management CM Discharge Assessment Start: 09/02/20 15:09 Freq: Status: Active Protocol: Document 09/02/20 15:09 AL (Rec: 09/02/20 15:12 AL [id number]) Discharge Planning Assessment Assigned Radiology Services Manager SUBHA Smith Student Contact Information Sarina Fredis Dtr Advance Directives? Yes History Provided By Patient,Family Member,Medical Record Has Patient been admitted in last 30 Yes days? Comment She has had 3 ER admitions in the last 3 weeks Prior Living Arrangements House Household Members spouse Type of transporation used prior to Relies on Others admit Independent with ADL's Yes Is patient alert and oriented? Yes Caregiver for Another No Barriers to Discharge No Discharge Plan Home Transportation Arrangement Daughter Abran Mcneal will provide transportation Whiteboard Updated in Patient Room with Yes name and ext. # of Radiology Services Manager
[2020-09-02] MEDS: dexAMETHasone 4 MG TABLET 40 MG PO (16:20)
[2020-09-02 19:23] VITALS: BP 120/55; PULSE 80; RESP 16; TEMP 36.6; O2SAT 96
[2020-09-03] VITALS (7 sets, daily range): BP systolic 119–139; BP diastolic 61–77; PULSE 68–89; RESP 15–18; TEMP 36.2–37.2; O2SAT 95–98
[2020-09-03] MEDS: ACETAMINOPHEN 325 MG TABLET 650 MG PO (04:20)
[2020-09-03] MEDS: BENZOCAINE/MENTHOL 1 LOZ PKT 1 EACH PO (04:20)
[2020-09-03] MEDS: LEVOTHYROXINE 150 MCG TABLET PO (05:20)
[2020-09-03] MEDS: LEVOTHYROXINE 25 MCG TABLET PO (05:20)
[2020-09-03 05:30] LABS: Add Manual Diff / Slide Review NO; Basophils Absolute Auto 0 /uL (0-100); Basophils Percent Auto 0.9 % (0-2); Eosinophils Absolute Auto 0 /uL (0-450); Hemoglobin 7.9 g/dL (12.0-16.0); Lymphocytes Absolute Auto 300 /uL (1100-4500); Lymphocytes Percent Auto 16.3 % (25-40); Mean Corpuscular HGB Conc 32.5 % (30-36); Mean Corpuscular Volume 86.3 fL (80-100); Monocytes Absolute Auto 100 /uL (0-900); Monocytes Percent Auto 2.9 % (3-14); Neutrophils Absolute Auto 1700 /uL (1500-7000); Neutrophils Percent Auto 79.9 % (50-75); Red Blood Cell Count 2.83 X10^6/uL (4.0-5.2); Red Cell Distribution Width 16.6 % (11.6-14.8); White Blood Cell Count 2.1 X10^3/uL (4.5-11.0)
[2020-09-03 05:33] LABS: BUN Creatinine Ratio 25.5 (6-22); Blood Urea Nitrogen 14 mg/dL (7-17); Carbon Dioxide 23 mmol/L (22-32); Chloride 105 mmol/L (98-107); Estimated Glomerular Filt Rate > 60.0 mL/min (>60); Glucose 183 mg/dL (80-110); HEMOLYSIS < 15 (0-50); Potassium 4.1 mmol/L (3.4-5.1); Sodium 132 mmol/L (137-145)
[2020-09-03 05:45] LABS: Hematocrit 24.4 % (36-46)
[2020-09-03 05:47] LABS: Platelet Count 15 X10^3/uL (150-400)
[2020-09-03 06:25] LABS: Platelet Estimate Decreased on smear
[2020-09-03 06:26] LABS: Anisocytosis 1+; Hypochromasia 1+
[2020-09-03 06:27] LABS: Platelet Morphology Comment 2+ LARGE PLATELETS
--- NOTE | 2020-09-03 06:52 | PC.NURSE ---
Division Toll Wire Chief Note-Patient dozed intermittently, no s/s bleeding, platelets 15 this am, verbally reported to SALES COMPENSATION ANALYST. Tylenol and Cepocal given for cough and rib pain. SR, 1st degree AVB, BBB, VSS.
[2020-09-03] MEDS: ATORVASTATIN 20 MG TABLET 5 MG PO (08:34)
[2020-09-03] MEDS: FERROUS SULFATE 325 MG TABLET PO (08:36)
[2020-09-03] MEDS: SODIUM CHLORIDE 0.9% FLUSH 10 ML IV ×2 (08:37→20:16)
[2020-09-03] MEDS: dexAMETHasone 4 MG TABLET 40 MG PO (08:37)
[2020-09-03] MEDS: PANTOPRAZOLE 40 MG VIAL 20 MG IV (08:43)
--- NOTE | 2020-09-03 09:54 | OT.IPNOTE ---
Able to speak Dr. Bautista regarding contraindications for therapy due to low platelets numbers and therefore Dr. Bautista agreed to discharge therapy eval orders at this time.
--- NOTE | 2020-09-03 10:57 | PC.NURSE ---
AM Shift note. pt AO and receptive to care. Denying pain. Tele: SR, BBB. Crackles noted to posterior left lobes. Right AC flushing. 40mg Dexamethasone started this AM per orders. Ambulating SBA/1PA with personal walker.
--- NOTE | 2020-09-03 13:15 | PM.PN.1 ---
Subjective Subjective Date Patient Seen: 09/03/20 Interval history: The patient was seen examined at bedside. No acute complaints today. States she feels like she has more energy today. Denies fevers or chills. ROS otherwise negative. Exam Vital Signs (past 8 hours): - 09/03/20 08:00 Temperature 97.8 F Pulse Rate 89 Respiratory Rate 16 Blood Pressure 139/77 Pulse Oximetry 98 Oxygen Delivery Method Room Air Oxygen Flow Rate 0 Narrative Exam Narrative: Const General: cooperative Orientation: alert, awake and oriented x3 HENMT Head: normal to inspection, normocephalic and atraumatic Eyes General: appearance normal, both eyes and all related structures Pupils: PERRL EOM: EOM intact bilaterally Neck Neck: normal visual inspection and full ROM Chest Chest: normal inspection of the chest and normal palpation of entire chest wall Resp Effort & Inspection: normal respiratory effort Auscultation: no rales, no rhonchi and no wheezes Cardio Palpation: normal PMI Rate: regular rate Rhythm: regular rhythm Heart Sounds: S1 normal and S2 normal GI Inspection: normal to inspection Palpation: soft, No guarding and No tender Auscultation: normal bowel sounds Neuro General: patient alert, patient awake, patient oriented x3 and CN's II-XI intact bilaterally Motor: muscle tone normal throughout Sensory Exam: no sensory deficits noted Extrem General: normal to inspection Psych Mood: congruent mood Affect: normal affect Attitude: cooperative Thought Content: normal Objective Labs Result Diagrams: 09/03/20 05:11 09/03/20 05:11 Labs: Laboratory Results - last 24 hr 09/02/20 09/03/20 09/03/20 13:33 05:11 05:11 WBC 2.6 L 2.1 L RBC 2.73 L 2.83 L Hgb 7.7 L 7.9 L Hct 23.5 L 24.4 L MCV 86.0 86.3 MCH 28.3 28.0 MCHC 32.9 32.5 RDW 17.0 H 16.6 H Plt Count 14 L* 15 L* Neut % (Auto) 79.9 H Lymph % (Auto) 16.3 L [place] % (Auto) 2.9 L Eos % (Auto) 0.0 L Baso % (Auto) 0.9 Neut # (Auto) 1700 Lymph # (Auto) 300 L [place] # (Auto) 100 Eos # (Auto) 0 Baso # (Auto) 0 Platelet Estimate Decreased on smear Plt Morphology Comment 2+ large platelets RBC Morphology See below Hypochromasia 1+ H Anisocytosis 1+ H Sodium 132 L Potassium 4.1 Chloride 105 Carbon Dioxide 23 BUN 14 Creatinine 0.55 Estimated GFR > 60.0 BUN/Creatinine Ratio 25.5 H Glucose 183 H D Calcium 8.0 L PFSH Medical History Anemia Hearing loss Hypertension Hypothyroidism Lower back pain Ovarian mass Prediabetes Surgical History Anesthesia History of carpal tunnel surgery (~2019) Family History Grandmother Colon cancer Mother Ovarian cancer Father Prostate cancer History of heart disease Brother Bladder cancer Family/Other Bone cancer Brain cancer Social History household members: spouse Smoking Status: Never smoker alcohol intake: never substance use type: does not use Assessment & Plan Assessment & Plan narrative: Assessment & Plan narrative: Assessment & Plan narrative: This is a 75-year-old female patient who has experienced progressive weakness presenting to the ER 3 times the last 3 weeks within identified ovarian cystic mass presumed to be neoplastic in origin with associated mildly prominent pelvic lymph nodes. The patient was found to be pancytopenic with worsening thrombocytopenia and is being admitted to the hospital for further care. #. Pancytopenia, acute on chronic, present on admission, active #. ITP The patient is chronically pancytopenic however recently she has been found to have downtrending platelet count. On 08/28 her platelets were 124, on 09/01 her platelet count was down to 25. She was initially admitted with plan for IR bone marrow biopsy, however IR does not perform bone marrow biopsies in this hospital. The case was further discussed with Dr. Uribe who recommended starting the patient on dexamethasone 40 mg daily for 4 days for presumed ITP. Will continue to monitor blood counts. Plan transfusion for platelet count less than 10,000 or active bleeding. Started on Protonix for GI protection and possible GERD. #. Ovarian cystic mass, present on admission, active. She has an ovarian mass measuring 5.5 cm, multiple mildly enlarged sidewall and iliac lymph nodes identified on a CT scan 08/07/2020. Patient was evaluated by Dr. Uribe on 08/18 2020 for weight loss, fatigue, anemia, leukopenia and was found to have ovarian cysts bilaterally on CT and US studies in Jul 2020,suspicious for ovarian cancer. Patient subsequently evaluated by Dr. Omer ONOFRE. Continue outpatient care. #. Essential hypertension, chronic, stable. History of hypertension on losartan and Lasix at home. These have been held on admission. Resume as needed. #. Acquired hypothyroidism, chronic, stable. -will continue current regimen of levothyroxine 175 mcg daily. DVT prophylaxis: SCDs Code status: Patient wishes to be DNR and designates her Dave foley to be her surrogate decision maker. Dispo: Anticipate discharge home when platelet count begins to improve. COVID-19 COVID-19 status: Negative
--- NOTE | 2020-09-03 17:09 | PC.NURSE ---
BONE MARROW BIOPSY REQUESTED BY DR JEREZ TO BE SCHEDULED FOR THIS PATIENT. JHOANA GARCIA ON ONCOLOGY INFORMED, BONE MARROW SCHEDULED FOR 1520 TO 1600 TO BE PERFORMED EITHER ON ACUTE CARE IF PATIENT STILL INPATIENT OR AT ONCOLOGY OFFICE. IF PERFORMED ON FLOOR, RADHA WILL BE SETTING UP FOR THE BMBX IN PATIENT'S HOSPITAL ROOM.
--- NOTE | 2020-09-03 17:27 | DIET.PN ---
Dietary Progress Note Assessment: 75y F admitted for generalized weakness and pancytopenia referred to nutrition for pancytopenia, prediabetes, unintended weight loss, and poor appetite. HT: 162.5cm WT: 84.7kg UBW: 111kg (-7.4% in 3w, severe, and 25% in 3mo, severe) BMI: 32.1 Labs:platelets 15L, hgb 7.9 L, Na 132 L MNA: 8 @ risk for malnutrition [place]: 19 Pt reports having consult in May 2020 for knee replacement, at the time was 245#. Surgeon declined surgery until pt lost weight. Not long after pt lost appetite c unintended weight loss. Pt stopped drinking coffee, couldn't tolerate smells of foods, and had aversion to anything set in front of her. Pt continued taking her BP meds and noticed numbers were really low for her so PCP adjusted. Pt noticed her knee stopped hurting secondary to the weight loss. Pt started having family come stay with her secondary to weakness, pt fatigued. Pts imaging shows likely bilateral ovarian masses. Pt presents to RD in joyful mood as her appetite returned today. She was able to tolerate scoop of mashed potatoes last night and most of her breakfast today. Pt is unsure of her prognosis but feels confident she can do better with her nutrition intake after talking c RD and nursing team. Pt dislikes ONS Ensure, too sweet and thick. NPFE positive for moderate muscle wasting globally c associated weakness, pale skin, loose skin on arms indicating rapid weight loss, and prominent cheekbone landmarks. Nutrition Diagnosis: Severe Acute PCM r/t poor appetite and likely oncologic process aeb 25% unintended weight loss in 3mo and 7.4% in past 3w (severe), pt reports no appetite x3mo, pt imaging suspicious for ovarian cancer, NFPE showing prominent cheekbones, moderate muscle wasting systemwide with increasing weakness, and loose skin indicating rapid weight loss. Interventions: 1. Discussed strategies to increase consumption c poor appetite like eating cold foods, eating what sounds good at the time, small frequent meals, prioritizing protein intake. 2. Recc yogurt c meal trays to support malnourished state. Diet Order: General EER: 2,000kcals (25kcal/kg per PCM obese), 110g PRO (1.3g/kg per PCM)
[2020-09-03] MEDS: PANTOPRAZOLE 20 MG TABLET PO (20:15)
[2020-09-03] MEDS: MELATONIN 3 MG TABLET PO (22:07)
[2020-09-04 00:15] VITALS: BP 129/62; PULSE 73; RESP 17; TEMP 36.9; O2SAT 97
[2020-09-04 05:15] VITALS: BP 135/73; PULSE 67; RESP 18; TEMP 36.4; O2SAT 98
[2020-09-04 05:27] LABS: Blood Urea Nitrogen 17 mg/dL (7-17); Calcium 8.4 mg/dL (8.4-10.2); Carbon Dioxide 24 mmol/L (22-32); Chloride 106 mmol/L (98-107); Estimated Glomerular Filt Rate > 60.0 mL/min (>60); Glucose 174 mg/dL (80-110); HEMOLYSIS < 15 (0-50); Potassium 4.3 mmol/L (3.4-5.1); Sodium 133 mmol/L (137-145)
[2020-09-04 05:30] LABS: Add Manual Diff / Slide Review NO; Basophils Absolute Auto 0 /uL (0-100); Basophils Percent Auto 0.2 % (0-2); Eosinophils Absolute Auto 0 /uL (0-450); Hemoglobin 7.6 g/dL (12.0-16.0); Lymphocytes Absolute Auto 600 /uL (1100-4500); Lymphocytes Percent Auto 8.2 % (25-40); Mean Corpuscular HGB Conc 33.3 % (30-36); Mean Corpuscular Hemoglobin 28.7 PG (26-34); Mean Corpuscular Volume 86.2 fL (80-100); Monocytes Absolute Auto 400 /uL (0-900); Monocytes Percent Auto 5.7 % (3-14); Neutrophils Absolute Auto 5800 /uL (1500-7000); Neutrophils Percent Auto 85.9 % (50-75); Red Blood Cell Count 2.64 X10^6/uL (4.0-5.2); Red Cell Distribution Width 16.6 % (11.6-14.8); White Blood Cell Count 6.8 X10^3/uL (4.5-11.0)
[2020-09-04 05:43] LABS: Hematocrit 22.7 % (36-46)
[2020-09-04 05:45] LABS: Platelet Count 29 X10^3/uL (150-400)
[2020-09-04 05:54] LABS: Anisocytosis 1+; Platelet Estimate Decreased on smear; Poikilocytosis 1+
[2020-09-04 05:55] LABS: Platelet Morphology Comment 2+ LARGE PLATELETS
--- NOTE | 2020-09-04 05:55 | PC.NURSE ---
Uriel Barrera notified in person of pt's. H&H result this am of 7.6/22.7 as well as plt. of 29, no new orders, pt. is asymptomatic and no bleeding noted so far and VSS are stable.
[2020-09-04] MEDS: LEVOTHYROXINE 25 MCG TABLET PO (06:14)
[2020-09-04] MEDS: LEVOTHYROXINE 150 MCG TABLET PO (06:14)
[2020-09-04 08:00] VITALS: BP 137/74; PULSE 75; RESP 17; TEMP 36.4; O2SAT 100
[2020-09-04] MEDS: PANTOPRAZOLE 20 MG TABLET PO ×2 (09:33→20:39)
[2020-09-04] MEDS: dexAMETHasone 4 MG TABLET 40 MG PO (09:34)
[2020-09-04] MEDS: ATORVASTATIN 20 MG TABLET 5 MG PO (09:36)
[2020-09-04] MEDS: FERROUS SULFATE 325 MG TABLET PO (09:36)
[2020-09-04] MEDS: SODIUM CHLORIDE 0.9% FLUSH 10 ML IV ×2 (09:45→20:42)
[2020-09-04 12:00] VITALS: BP 125/71; PULSE 77; RESP 17; TEMP 36.4; O2SAT 98
[2020-09-04 16:00] VITALS: BP 139/77; PULSE 78; RESP 16; TEMP 36.3; O2SAT 100
--- NOTE | 2020-09-04 16:58 | PC.NURSE ---
684 completed bedside bone marrow biopsy. pt now laying to back to apply pressure. Denies any pain/discomfort.
--- NOTE | 2020-09-04 17:03 | P.PN_ITS ---
Subjective Subjective Date Patient Seen: 09/04/20 Interval history: The patient was seen and examined at bedside. Overall she reports increased energy today. She is reporting increased appetite and no was overall feeling improved and more helpful. She underwent bone marrow biopsy at the bedside today by Dr. Uribe and reports minimal pain postprocedure early. She denies fevers or chills. ROS otherwise negative. Exam Vital Signs (past 8 hours): - 09/04/20 12:00 09/04/20 16:00 Temperature 97.6 F 97.3 F L Pulse Rate 77 78 Respiratory Rate 17 16 Blood Pressure 125/71 139/77 Pulse Oximetry 98 100 Oxygen Delivery Method Room Air Oxygen Flow Rate 0 Narrative Exam Narrative: Const General: cooperative Orientation: alert, awake and oriented x3 HENMT Head: normal to inspection, normocephalic and atraumatic Eyes General: appearance normal, both eyes and all related structures Pupils: PERRL EOM: EOM intact bilaterally Neck Neck: normal visual inspection and full ROM Chest Chest: normal inspection of the chest and normal palpation of entire chest wall Resp Effort & Inspection: normal respiratory effort Auscultation: no rales, no rhonchi and no wheezes Cardio Palpation: normal PMI Rate: regular rate Rhythm: regular rhythm Heart Sounds: S1 normal and S2 normal GI Inspection: normal to inspection Palpation: soft, No guarding and No tender Auscultation: normal bowel sounds Neuro General: patient alert, patient awake, patient oriented x3 and CN's II-XI intact bilaterally Motor: muscle tone normal throughout Sensory Exam: no sensory deficits noted Extrem General: normal to inspection Psych Mood: congruent mood Affect: normal affect Attitude: cooperative Thought Content: normal Objective Labs Result Diagrams: 09/04/20 05:02 09/04/20 05:02 Labs: Laboratory Results - last 24 hr 09/01/20 09/04/20 09/04/20 15:20 05:02 05:02 WBC 6.8 D RBC 2.64 L Hgb 7.6 L Hct 22.7 L MCV 86.2 MCH 28.7 MCHC 33.3 RDW 16.6 H Plt Count 29 L* Neut % (Auto) 85.9 H Lymph % (Auto) 8.2 L [place] % (Auto) 5.7 Eos % (Auto) 0.0 L Baso % (Auto) 0.2 Neut # (Auto) 5800 Lymph # (Auto) 600 L [place] # (Auto) 400 Eos # (Auto) 0 Baso # (Auto) 0 Platelet Estimate Decreased on smear Plt Morphology Comment 2+ large platelets RBC Morphology See below Poikilocytosis 1+ H Anisocytosis 1+ H Smear Path Review Sodium 133 L Potassium 4.3 Chloride 106 Carbon Dioxide 24 BUN 17 Creatinine 0.50 L Estimated GFR > 60.0 BUN/Creatinine Ratio 34.0 H Glucose 174 H Calcium 8.4 PFSH Medical History Anemia Hearing loss Hypertension Hypothyroidism Lower back pain Ovarian mass Prediabetes Surgical History Anesthesia History of carpal tunnel surgery (~2019) Family History Grandmother Colon cancer Mother Ovarian cancer Father Prostate cancer History of heart disease Brother Bladder cancer Family/Other Bone cancer Brain cancer Social History household members: spouse Smoking Status: Never smoker alcohol intake: never substance use type: does not use Assessment & Plan Assessment & Plan narrative: Assessment & Plan narrative: Assessment & Plan narrative: Assessment & Plan narrative: This is a 75-year-old female patient who has experienced progressive weakness presenting to the ER 3 times the last 3 weeks within identified ovarian cystic mass presumed to be neoplastic in origin with associated mildly prominent pelvic lymph nodes. The patient was found to be pancytopenic with worsening thrombocytopenia and is being admitted to the hospital for further care. #. Pancytopenia, acute on chronic, present on admission, active #. ITP The patient is chronically pancytopenic however recently she has been found to have downtrending platelet count. On 08/28 her platelets were 124, on 09/01 her platelet count was down to 25. She was initially admitted with plan for IR bone marrow biopsy, however IR does not perform bone marrow biopsies in this hospital. The case was further discussed with Dr. Uribe who recommended starting the patient on dexamethasone 40 mg daily for 4 days for presumed ITP. Platelet counts are steadily rising. She has no active bleeding. She is on Protonix for GI protection. She is status post bone marrow biopsy 09/[address] Uribe. She will need weekly CBCs as an outpatient and she plans on following up with Dr. Uribe in the clinic in 2 weeks. #. Ovarian cystic mass, present on admission, active. She has an ovarian mass measuring 5.5 cm, multiple mildly enlarged sidewall and iliac lymph nodes identified on a CT scan 08/07/2020. Patient was evaluated by Dr. Uribe on 08/18 2020 for weight loss, fatigue, anemia, leukopenia and was found to have ovarian cysts bilaterally on CT and US studies in Jul 2020,suspicious for ovarian cancer. Patient subsequently evaluated by Dr. Omer ONOFRE. Continue outpatient care. #. Essential hypertension, chronic, stable. History of hypertension on losartan and Lasix at home. Her home medications were held on admission and she has remained normotensive. Resume as needed. #. Acquired hypothyroidism, chronic, stable. -will continue current regimen of levothyroxine 175 mcg daily. DVT prophylaxis: SCDs Code status: DNR Healthcare proxy: Dave Dispo: This be discharged tomorrow if stable COVID-19 COVID-19 status: Negative
[2020-09-04 20:00] VITALS: BP 143/71; PULSE 68; RESP 18; TEMP 36.4; O2SAT 98
[2020-09-04] MEDS: ACETAMINOPHEN 325 MG TABLET 650 MG PO (20:39)
[2020-09-04] MEDS: BENZOCAINE/MENTHOL 1 LOZ PKT 1 EACH PO (20:39)
[2020-09-05] VITALS (7 sets, daily range): BP systolic 133–153; BP diastolic 65–84; PULSE 56–107; RESP 16–20; TEMP 36.3–37; O2SAT 96–98
[2020-09-05 04:59] LABS: Basophils Absolute Auto 0 /uL (0-100); Basophils Percent Auto 0.7 % (0-2); Eosinophils Absolute Auto 0 /uL (0-450); Hematocrit 22.9 % (36-46); Hemoglobin 7.5 g/dL (12.0-16.0); Lymphocytes Absolute Auto 600 /uL (1100-4500); Lymphocytes Percent Auto 11.3 % (25-40); Mean Corpuscular HGB Conc 32.7 % (30-36); Mean Corpuscular Hemoglobin 28.3 PG (26-34); Mean Corpuscular Volume 86.5 fL (80-100); Monocytes Absolute Auto 400 /uL (0-900); Monocytes Percent Auto 6.7 % (3-14); Neutrophils Absolute Auto 4700 /uL (1500-7000); Neutrophils Percent Auto 81.3 % (50-75); Red Blood Cell Count 2.65 X10^6/uL (4.0-5.2); Red Cell Distribution Width 16.8 % (11.6-14.8); White Blood Cell Count 5.7 X10^3/uL (4.5-11.0)
[2020-09-05 05:03] LABS: BUN Creatinine Ratio 34.9 (6-22); Blood Urea Nitrogen 22 mg/dL (7-17); Calcium 8.5 mg/dL (8.4-10.2); Carbon Dioxide 23 mmol/L (22-32); Chloride 104 mmol/L (98-107); Estimated Glomerular Filt Rate > 60.0 mL/min (>60); Glucose 158 mg/dL (80-110); HEMOLYSIS < 15 (0-50); Sodium 132 mmol/L (137-145)
[2020-09-05] MEDS: LEVOTHYROXINE 25 MCG TABLET PO (05:29)
[2020-09-05] MEDS: LEVOTHYROXINE 150 MCG TABLET PO (05:29)
[2020-09-05 05:41] LABS: Add Manual Diff / Slide Review SLIDE REVIEW; Platelet Count 29 X10^3/uL (150-400)
[2020-09-05 06:54] LABS: Anisocytosis 2+; Hypochromasia 2+; Platelet Estimate Decreased on smear
[2020-09-05] MEDS: ATORVASTATIN 20 MG TABLET 5 MG PO (09:03)
[2020-09-05] MEDS: dexAMETHasone 4 MG TABLET 40 MG PO (09:09)
[2020-09-05] MEDS: PANTOPRAZOLE 20 MG TABLET PO (09:11)
[2020-09-05] MEDS: FERROUS SULFATE 325 MG TABLET PO (09:12)
[2020-09-05] MEDS: SODIUM CHLORIDE 0.9% FLUSH 10 ML IV (11:55)
--- NOTE | 2020-09-05 12:26 | PC.NURSE ---
Day shift: Pt made aware of the current plan of care regarding another unit of PRBC's to be infused and rechecking her H/H. Pt is agreeable to this. Eating lunch with [id number] in room. No c/o of pain or discomfort. Pt made aware that blood transfusion will take at least 3 hours. As this note is written the blood is not ready (@1230). Will update Pt w/ any changes and continue w/ plan of care at this time.
--- NOTE | 2020-09-05 14:43 | PC.NURSE ---
Day shift: Blood infusion started per protocol. Consent form signed and in chart. Pt informed to let RN know if any changes in the way she feels. Call light in reach and family member in room.
[2020-09-05 18:06] LABS: Hematocrit 28.7 % (36-46); Hemoglobin 9.4 g/dL (12.0-16.0)
--- NOTE | 2020-09-05 18:24 | PM.DS.1 ---
History of Present Illness History of Present Illness Date Patient Seen: 09/05/20 Chief complaint: Supervised Track for Colonoscopy and COVID Test Narrative: Ms aCrly Mcneal is a 75 year-old female with a past medical history significant for hypertension, hypothyroidism, prediabetes, low back pain and osteoarthritis presents to ER 3 times in 3 weeks for progressive weakness. The patient is recently been found to have an ovarian cystic mass concerning for neoplasm. The patient has been seen and evaluated by Dr. Uribe Oncology, Dr. Tello gynecology, Dr. Guzman general surgery and consideration of colonoscopy. She would was sent to the ER for admission and bowel prep for the procedure due to her debilitated state and weakness. The patient additionally reports poor appetite and food aversion but denies abdominal pain, nausea vomiting. She did experience a weight loss of 50 lbs since early June 2020. The patient has undergone recent imaging including a CT of the chest abdomen and pelvis which finds persistent left ovarian cyst like structure with mildly prominent pelvic lymph nodes concerning for neoplastic process and a CT of head which finds no acute intracranial processes, cerebral volume loss with microvascular ischemic changes. He has also had an echocardiogram completed on 08/26/2020 which finds normal LV structure and function, EF of 60-65% and normal RV structure and function. The patient's weakness has been progressive to the point she feels unsteady on her feet and has sustained falls and has hit her head without loss conscious neck or back pain. The patient typically ambulates with a walker related to severe osteoarthritis of the left knee for which she was being evaluated for total knee replacement. Patient denies complaints of acute or chronic pain, has had no recent illness and denies fevers or chills. She denies complaints of chest pain or palpitations, shortness of breath. She has a chronic dry nonproductive cough worse when lying down at night. She has had no epigastric or abdominal pain and denies hematemesis, hematochezia or melena. She denies urinary symptoms. Upon arrival to the ER the patient is afebrile with temperature 98.7?, heart rate of 90, blood pressure 143/63, respirations 22 saturating 90% on air. No imaging is completed on this admission. On laboratory analysis the patient is found to be pancytopenic with white count of 3.1, hemoglobin of 8.9 and hematocrit of 27.2 and platelets of 25. On chemistry she is mildly hyponatremic with sodium 131 and calcium is 8.2 correcting to 9.16 of with an albumin of 2.8. Remainder of chemistries are unremarkable in her nonfasting glucose is 83, BUN 21 creatinine 0.83. On liver functions she has a total bilirubin of 0.5, AST of 40, ALT 17 alkaline phosphatase 44. Lactic acid is 1.2. COVID screening is negative. Hospital Services contacted for admission and it was requested that general surgery be notified of acute thrombocytopenia without active bleeding. Requested Oncology evaluation necessity of colonoscopy. It is noted the patient had a platelet count of 124 on 08/28/2020, 96 on 08/29/2020 and today platelets are 25. Per report Dr. Guzman felt contacting Oncology was appropriate ever thought that colonoscopy should go forward the patient need to platelet transfusion. Oncology was contacted and felt this juncture she proceed with a bone biopsy and hold on colonoscopy. The patient is admitted to the hospitalist service for generalized weakness and pancytopenia. Discharge Providers Provider Date of admission: 09/01/20 19:47 Discharge Date: 09/05/20 Primary care physician: Beka Tucker DO Consults: 09/01/20 21:24 Consult to Dietitian, Adult Routine Comment: Reason For Exam: Pancytopenia, ?prediabetes?, albumin 2.8 Consult to Discharge Planning Routine Comment: Consult to Oncology Routine Comment: Consulting Provider: Daniel Uribe Reason for consultation: Ovarian mass, pancytopenia, acute thrombocytopenia Has provider been notified: Yes 09/01/20 21:35 Consult to Dietitian, Adult Routine Comment: Reason For Exam: severe decrease in appetite Discharge provider: Renetta Garza MD Summary Hospital Course Discharge Diagnosis: 1. Pancytopenia etiology unclear 2. 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 Status post bone marrow biopsy 4. Anemia, status post 1 unit transfusion of blood 5. Hypothyroid 6. Hyperlipidemia 7. Ovarian mass question ovarian carcinoma Hospital Course: Patient was admitted to the hospital for generalized weakness. She was also found to be profoundly thrombocytopenic. Patient has known pancytopenia. She had a drop in her platelets from 124-91319. Patient received steroids in the hospital. Her platelet count 63189. Her hemoglobin and hematocrit dropped to 7.5 over 22. The patient received 1 unit of blood and had an improvement of her hemoglobin to 9 g. the patient did undergo bone marrow biopsy and aspirate during the hospital stay. She had no complications from that. The results of the bone marrow aspirate are negative. As the patient's anemia has improved, her platelet count, thrombocytopenia stabilized. She is deemed appropriate for discharge and arrangements will be made for her to discharge home. Patient will follow-up with Dr. Uribe next week for weekly CBC. Status at Discharge Cognitive/behavioral status at discharge: oriented Functional status at discharge: independent ambulation Overall status at discharge: patient is not back to baseline Time Spent with Patient Time spent: Less than 30 minutes Exam Vital Signs (past 8 hours): - 09/05/20 14:36 09/05/20 14:51 09/05/20 17:31 Temperature 98.6 F 98.2 F 97.9 F Pulse Rate 56 L 58 L 107 H Respiratory Rate 18 18 20 Blood Pressure 146/65 H 149/76 H 143/76 H Pulse Oximetry 97 Oxygen Delivery Method Room Air Oxygen Flow Rate 0 Narrative Exam Narrative: Lungs clear to auscultation Cardiac exam: Regular rate and rhythm normal S1-S2 with a 2/6 systolic ejection murmur Abdomen: Soft nontender nondistended Extremities: No edema Objective Labs Result Diagrams: 09/05/20 17:58 09/05/20 04:42 Labs: Laboratory Results - last 24 hr 09/05/20 09/05/20 09/05/20 04:42 04:42 17:58 WBC 5.7 RBC 2.65 L Hgb 7.5 L 9.4 L Hct 22.9 L 28.7 L MCV 86.5 MCH 28.3 MCHC 32.7 RDW 16.8 H Plt Count 29 L* Neut % (Auto) 81.3 H Lymph % (Auto) 11.3 L [place] % (Auto) 6.7 Eos % (Auto) 0.0 L Baso % (Auto) 0.7 Neut # (Auto) 4700 Lymph # (Auto) 600 L [place] # (Auto) 400 Eos # (Auto) 0 Baso # (Auto) 0 Platelet Estimate Decreased on smear RBC Morphology See below Hypochromasia 2+ H Anisocytosis 2+ H Sodium 132 L Potassium 4.0 Chloride 104 Carbon Dioxide 23 BUN 22 H Creatinine 0.63 Estimated GFR > 60.0 BUN/Creatinine Ratio 34.9 H Glucose 158 H Calcium 8.5 Blood Type Antibody Screen Crossmatch 09/05/20 Unknown WBC RBC Hgb Hct MCV MCH MCHC RDW Plt Count Neut % (Auto) Lymph % (Auto) [place] % (Auto) Eos % (Auto) Baso % (Auto) Neut # (Auto) Lymph # (Auto) [place] # (Auto) Eos # (Auto) Baso # (Auto) Platelet Estimate RBC Morphology Hypochromasia Anisocytosis Sodium Potassium Chloride Carbon Dioxide BUN Creatinine Estimated GFR BUN/Creatinine Ratio Glucose Calcium Blood Type A Positive Antibody Screen Negative Crossmatch See Detail [facility] Medical History Anemia Hearing loss Hypertension Hypothyroidism Lower back pain Ovarian mass Prediabetes Surgical History Anesthesia History of carpal tunnel surgery (~2019) Family History Grandmother Colon cancer Mother Ovarian cancer Father Prostate cancer History of heart disease Brother Bladder cancer Family/Other Bone cancer Brain cancer Social History household members: spouse Smoking Status: Never smoker alcohol intake: never substance use type: does not use Discharge Assessment & Plan Assessment and Plan Assessment: ITP, status post steroid therapy Pancytopenia, etiology unclear Anemia, status post 1 unit packed RBC transfusion Ovarian male Hypothyroid Hyperlipidemia Plan of Treatment: Discharge home Planned follow-up with Dr. Uribe next week Discharge Plan Discharge Plan Patient Disposition: Home Discharge orders & Medications Prescriptions: Continued atorvastatin 10 mg tablet 5 mg PO DAILY RF: 0 levothyroxine 175 mcg capsule 175 mcg PO DAILY RF: 0 B-complex with vitamin C Capsule 1 cap PO DAILY RF: 0 polaprezinc (zinc carnosine) 16 mg tablet,chewable 16 mg PO DAILY RF: 0 Follow up/Referrals: Beka Tucker DO [Primary Care Provider] - Discharge Health Status Multidrug resistant organism: No MDRO Diet/Activity/Treatments Diet: Diet as Tolerated Visit Report/Discharge Packet Instructions: Bone Marrow Biopsy, DI for Pancytopenia Discharge Data Primary Care Provider: Beka Tucker Attending Provider: Nicolas Barrera
--- NOTE | 2020-09-06 13:49 | CM.DPNOTE ---
DC Note- Late Entry Spoke w/RN Rodri yesterday afternoon, he explained blood for transfusion was running a little late, however, patient and DIL were still planning on returning home, no needs indicated from this [employer]. Review of chart shows patient did DC home after this [employer] left for the day yesterday JW
--- NOTE | 2020-09-09 20:54 | PC.NURSE ---
Late Entry; NS infusion initiated 09/01 at 21:47, stopped per MD order 09/02 at 14:26.
== END 2020-09-05 19:30 | disposition home or self-care (01) ==
LOC: ED 19:43 → AC 19:48
PROVIDERS: Hospitalist; Internal Medicine; Admitting Provider Nurse Practitioner Adult Health; Emergency Provider Emergency Medicine; Family Provider Physician Assistant Medical; PCP Family Medicine; Visit Provider Nurse Practitioner Adult Health
DX: D61.818 Other pancytopenia (principal); R53.1 Weakness; R62.7 Adult failure to thrive; R19.09 Other intra-abdominal and pelvic swelling, mass and lump; I10 Essential (primary) hypertension; E03.9 Hypothyroidism, unspecified; D69.6 Thrombocytopenia, unspecified; E78.5 Hyperlipidemia, unspecified; D64.9 Anemia, unspecified; Z20.822 Contact with and (suspected) exposure to COVID-19
CPT/HCPCS: 36415; 36430; 36592; 38222; 80048; 80053; 81001; 83605; 83615; 83690; 83735; 85014; 85018; 85025; 85027; 85610; 85730; 86850; 86900; 86901; 87635; 94762; 96361; 96374; 96376; 99000; 99282; 99284; C9803; G0378; P9016; C9113

== ENCOUNTER → 2020-09-24 09:55 | Outpatient (CLI) | payer MEDICARE, SELFPAY ==
[2020-09-01 21:30] VITALS: BMI 32.8
[2020-09-24 10:44] LABS: COVID19 -Nasal RAPID Negative (Negative)
== END ==
PROVIDERS: Family Provider Physician Assistant Medical; PCP Family Medicine; Visit Provider Surgery
DX: Z20.822 Contact with and (suspected) exposure to COVID-19 (principal)
CPT/HCPCS: 87635; C9803

== ENCOUNTER 2020-09-25 13:14 | Day surgery (SDC) | payer MEDICARE, SELFPAY ==
[2020-09-01 21:30] VITALS: BMI 32.8
[2020-09-25] VITALS (8 sets, daily range): BP systolic 133–149; BP diastolic 60–78; PULSE 81–93; RESP 14–18; TEMP 37.1–37.6; O2SAT 95–97; BMI 31.7
[2020-09-25] MEDS: LACTATED RINGERS 1,000 ML 200 ML IV (14:13)
--- NOTE | 2020-09-25 14:18 | PM.HP.1 ---
History of Present Illness History of Present Illness Date Patient Seen: 09/25/20 Time Patient Seen: 14:18 Chief complaint: SDC Narrative: 75-year-old female pancytopenia and unintentional weight loss sent by Oncology for EGD and colonoscopy. Please see the H and P from August 2020 for further detail. In the interim she has undergone a bone marrow biopsy which does not demonstrate leukemia and lymphoma. She has started corticosteroids with resolution of her of thrombocytopenia improvement of her energy. Patient History Medical History Anemia Hearing loss Hypertension Hypothyroidism Lower back pain Ovarian mass Prediabetes Surgical History Anesthesia History of carpal tunnel surgery (~2019) Family & Social History Family History Grandmother Colon cancer Mother Ovarian cancer Father Prostate cancer History of heart disease Brother Bladder cancer Family/Other Bone cancer Brain cancer Social History: household members spouse Tobacco & Substance use: Smoking Status Never smoker alcohol intake never alcohol intake frequency 0-2 drinks per day Substance Use Type does not use Meds Home Medications and Allergies Home Medications Medication Instructions Recorded Confirmed Type B-complex with vitamin C 1 cap PO DAILY 08/14/20 09/25/20 History atorvastatin 10 mg tablet 5 mg PO DAILY 08/14/20 09/25/20 History levothyroxine 175 mcg capsule 175 mcg PO DAILY 08/14/20 09/25/20 History polaprezinc (zinc carnosine) 16 mg 16 mg PO DAILY 08/14/20 09/25/20 History chewable tablet furosemide 20 mg PO DAILY 09/25/20 09/25/20 History hydrocodone-acetaminophen 1 tab PO DAILY PRN 09/25/20 09/25/20 History prednisone 20 mg PO DAILY 09/25/20 09/25/20 History Allergies Allergy/AdvReac Type Severity Reaction Status Date / Time No Known Drug Allergies Allergy Verified 08/29/20 12:00 Review of Systems Review of Systems ROS: Yes All systems reviewed with the patient and are negative except as otherwise documented Exam Vital Signs (past 8 hours): - 09/25/20 13:48 Temperature 98.8 F Pulse Rate 88 Respiratory Rate 18 Blood Pressure 149/78 H Pulse Oximetry 96 Oxygen Delivery Method Room Air Oxygen Flow Rate 0 Narrative Exam Narrative: General-no acute distress, elderly woman HEENT-moist mucous membranes, no scleral icterus Neck-supple, no lymphadenopathy Chest- non labored respirations, clear to auscultation bilaterally Cardiac-regular rate no peripheral edema Abdomen-soft, nontender nondistended Extremities-warm, well perfused Neurological-alert and oriented, no focal deficits Assessment & Plan Assessment and plan (1) Pancytopenia: Status: Acute Assessment & Plan narrative: 75-year-old female with anemia of unclear etiology here for esophagoduodenoscopy and colonoscopy. Technical details of the procedure were discussed. Procedure risks including bleeding infection misdiagnosis perforation need for major abdominal surgery need for further procedure were discussed. Her questions have been answered she is in agreement with this plan. Quality MIPS - Admit Advanced Care Plan / Current Medications Measures: #47 ? Advanced Care Plan Clinician documentation instruction: document at admission. [] I confirmed that the patient's Advance Care Plan is present, code status is documented, or surrogate decision maker is listed in the patient?s medical record. [SATISFIES MIPS PERFORMANCE] If Yes, Stop Here [] The patient?s Advance Care plan is not present because: (select) [MIPS PERFORMANCE EXCEPTION/EXCLUSION] [] I confirmed today that the patient does not wish or was not able to name a surrogate decision maker or provide an Advance Care Plan. [] Hospice care is currently being provided or has been provided this calendar year [] I did NOT confirm today the presence of an Advance Care Plan or surrogate decision maker documented within the patient's medical record. [DOES NOT SATISFY MIPS PERFORMANCE] #130 - Documentation of Current Medications in the Medical Record Clinician documentation instruction: use macro the first time you see a patient. [] I have utilized all available immediate resources to obtain, update, or review the patient?s current medications. [SATISFIES MIPS PERFORMANCE] If Yes, Stop Here [] The patient is not eligible for medication reconciliation; the patient is in an emergent medical situation where delaying treatment would jeopardize the patient?s health. [MIPS PERFORMANCE EXCEPTION/EXCLUSION] [] I did NOT confirm, update or review the patient's current list of medications today. [DOES NOT SATISFY MIPS PERFORMANCE] MIPS - CL Central Venous Catheter Placement Measure: #76 ? Prevention of Central Venous Catheter (CVC) ? Related Bloodstream Infection Clinician documentation instruction: use macro every time you place a central line. [] All elements of Maximal Sterile Barrier Technique, including hand hygiene, skin prep, and sterile ultrasound technique (if used) were followed. [SATISFIES MIPS PERFORMANCE] If Yes, Stop Here [] If ?No?, the medical reason all elements were NOT used for medical reason [] (ex. emergent condition). [] Maximal Sterile Barrier Technique was not followed, no reason provided [DOES NOT SATISFY MIPS PERFORMANCE] MIPS - DC Heart Failure Measures: #5 - Heart Failure (HF): Angiotensin-Converting Enzyme (MARK) Inhibitor or Angiotensin Receptor Donna (ARB) Therapy for Left Ventricular Systolic Dysfunction (LVSD) and #8 - Heart Failure (HF): Beta-Donna Therapy for Left Ventricular Systolic Dysfunction (LVSD) Clinician documentation instruction: use macro at every CHF discharge. [] The patient has current or prior documentation of left ventricular ejection fraction (LVEF) less than 40%, or moderate or severely depressed left ventricular systolic function. Answer both: [SATISFIES MIPS PERFORMANCE] [] The patient was prescribed or already taking an Angiotensin-Converting Enzyme (MARK) Inhibitor, or Angiotensin Receptor Donna (ARB). [] The patient was prescribed or already taking a beta-donna. If Yes to Both, Stop Here [] Patient not prescribed/taking: [MIPS PERFORMANCE EXCEPTION/EXCLUSION] [] MARK or ARB for medical/patient/system reason(s) including [] (ex. allergy, intolerance, contraindication) [] Beta-donna for medical/patient/system reason(s) including [] (ex. allergy, intolerance, contraindication) [] Patient not prescribed/taking: [DOES NOT SATISFY MIPS PERFORMANCE] [] MARK or ARB, no reason given [] Beta-donna, no reason given
[2020-09-25] MEDS: LIDOCAINE 4% SOLN 50 ML 20 ML TOP (14:25)
[2020-09-25] MEDS: fentaNYL 250 MCG/5 ML INJ IV (14:26)
[2020-09-25] MEDS: MIDAZOLAM 5 MG/5 ML VIAL IV (14:26)
--- NOTE | 2020-09-25 15:23 | PM.OP.ENDO ---
Operative Date/Time/Diagnoses Date of procedure: 09/25/20 Time of procedure: 15:23 Pre-op diagnosis: Anemia, ovarian mass Post-op diagnosis: same Procedure & Clinicians Study performed: Esophagoduodenoscopy Colonoscopy Same procedure as scheduled: Yes Indications: 75-year-old woman with an ovarian mass pancytopenia who is here for esophagoduodenoscopy and colonoscopy Surgeon: Norberto Guzman Procedure Notes Procedure in detail: Medications: Conscious sedation using 6mg IV midazolam and 200mcg IV of fentanyl Patient placed in left lateral decubitus position. Time out was performed. Procedural sedation was administered with Versed and Fentanyl. A bite block was placed. the scope was inserted into the mouth and advanced through the esophagus and into the stomach. The pylorus was intubated and the duodenum was normal to the 2nd portion. The scope was retroflexed within the stomach and there was a small hiatal hernia. No ulcers, or gastritis. The scope was withdrawn into the esophagus the Z line was seen at 35 cm from the incisions. There was no Lewis's esophagitis or masses or strictures. Stomach was desufflated and scope removed. Patient tolerated procedure well. Examination began with a thorough inspection of the perianal area there was no evidence of fissures, fistulae, external hemorrhoids or cutaneous malignancy. The colonoscopy scope was then placed into the anal canal and was advanced to the cecum, which was identified by the ileocecal valve, the appendiceal orifice and the confluence of the taenia. The scope was then slowly withdrawn examining colon thoroughly in all directions, irrigating it of any residual stool. No masses or polyps No active bleeding No colitis The patient tolerated the procedure well. They will be discharged once criteria are met. The prep was of good/excellent quality. The withdrawl time was 7 minutes. The sedation time was 50 minutes. Findings: hiatal hernia Specimen(s): none sent Complications: none Impression: Normal EGD and colonoscopy Post-procedure Plan for aftercare: Follow-up with Oncology Disposition: same day surgery
== END 2020-09-25 16:15 | disposition home or self-care (01) ==
PROVIDERS: Family Provider Physician Assistant Medical; PCP Family Medicine; Referring Provider Family Medicine; Visit Provider Surgery
PROC: 0DJ08ZZ Inspection of Upper Intestinal Tract, Via Natural or Artificial Opening Endoscopic (ICD-10-PCS; CPT 43235; principal; 2020-09-25 14:30)
PROC: 0DJD8ZZ Inspection of Lower Intestinal Tract, Via Natural or Artificial Opening Endoscopic (ICD-10-PCS; CPT 45378; 2020-09-25 14:30)
DX: D64.9 Anemia, unspecified (principal); D61.818 Other pancytopenia; R59.0 Localized enlarged lymph nodes; R53.83 Other fatigue; R63.4 Abnormal weight loss; R19.09 Other intra-abdominal and pelvic swelling, mass and lump; I10 Essential (primary) hypertension; E03.9 Hypothyroidism, unspecified; R73.03 Prediabetes; D72.819 Decreased white blood cell count, unspecified; K44.9 Diaphragmatic hernia without obstruction or gangrene; D50.9 Iron deficiency anemia, unspecified
CPT/HCPCS: 43235; 45378; 99152; 99153; J2250; J3010

== ENCOUNTER → 2020-10-02 14:42 | Outpatient (CLI) | payer MEDICARE, SELFPAY ==
[2020-09-01 21:30] VITALS: BMI 32.8
--- NOTE | 2020-10-02 | DI.RAD.S_ITS ---
PROCEDURE: XR CHEST 2V INDICATIONS: SOB TECHNIQUE: 2 views of the chest were acquired. COMPARISON: [facility], CR, XR CHEST 1V, 08/11/2020, 13:24. FINDINGS: Surgical changes and devices: None. Lungs and pleura: Lungs are clear. Trace bilateral pleural fluid collections noted. Cephalization of pulmonary vasculature and interstitial prominence suggesting CHF. Mediastinum: Mediastinal contours are normal. Heart is enlarged. Bones and chest wall: No suspicious bony abnormalities. Soft tissues appear unremarkable. IMPRESSION: 1. Mild CHF. 2. Trace bilateral pleural effusions. Dictated by: Griselda Pimentel MD, PhD on 10/02/2020 at 15:16 Approved by: Griselda Pimentel MD, PhD on 10/02/2020 at 15:17
== END ==
PROVIDERS: Family Provider Physician Assistant Medical; PCP Family Medicine; Referring Provider Family Medicine; Visit Provider Family Medicine
DX: R06.02 Shortness of breath (principal); I50.9 Heart failure, unspecified
CPT/HCPCS: 71046

== ENCOUNTER → 2020-11-21 11:05 | Outpatient (CLI) | payer MEDICARE, SELFPAY ==
[2020-09-01 21:30] VITALS: BMI 32.8
--- NOTE | 2020-11-21 | DI.US.S_ITS ---
PROCEDURE: US PELVIC COMPLETE INDICATIONS: FOLLOW UP CYST TECHNIQUE: Real-time scanning was performed of the pelvic organs, with image documentation. Additional endovaginal scanning was necessary due to incomplete visualization of the adnexal and endometrial structures by transabdominal scanning. COMPARISON: [facility], RG, CT ABDOMEN/PELVIS WITH CONTRAST, 08/07/2020, 10:37. [facility], CT, CT CHEST ABD PEL W CON, 08/28/2020, 13:05. [facility], US, US PELVIC COMPLETE, 08/21/2020, 11:46. FINDINGS: Uterus: The uterus measures 6.3 x 4.4 x 2.8 cm. Endometrial thickness is normal measuring 3.7 mm. Uterine echotexture is heterogenous. Nabothian cysts are noted of the cervix. No cervical mass. Ovaries: The right ovary measures 3.5 x 1.5 x 1.6 cm. The right ovary has a simple follicle measuring 1.6 x 1.0 x 1.4 cm. Vascularity of the right ovary could not be assessed due to body habitus. The left ovary is not well visualized however there is a simple cyst measuring 4.1 x 5.4 x 3.7 cm, likely an ovarian cyst, however no solid ovarian tissue is identified. Other: No pathologic free abdominal or pelvic fluid. IMPRESSION: 1. Left adnexal cyst measuring 4.1 x 5.4 x 3.7 cm. This corresponds with a cyst seen on CT dated 08/28/2020 in which it measured 4.0 x 6.5 x 4.9 cm and was a similar size on a CT on 08/07/2020. Given patient age and the size of the cyst, recommend annual follow-up. 2. No acute abnormality. Dictated by: Dusty Washubrn M.D. on 11/21/2020 at 18:34 Approved by: Dusty Washburn M.D. on 11/21/2020 at 18:45
== END ==
PROVIDERS: Family Provider Physician Assistant Medical; PCP Family Medicine; Referring Provider Obstetrics & Gynecology; Visit Provider Obstetrics & Gynecology
DX: N83.8 Other noninflammatory disorders of ovary, fallopian tube and broad ligament (principal); N88.8 Other specified noninflammatory disorders of cervix uteri
CPT/HCPCS: 76830; 76856

== ENCOUNTER → 2021-03-30 10:56 | Outpatient (CLI) | payer MEDICARE, SELFPAY ==
[2020-09-01 21:30] VITALS: BMI 32.8
[2021-03-30 14:33] LABS: COVID19 -Nasal RAPID Negative (Negative)
== END ==
PROVIDERS: Family Provider Physician Assistant Medical; PCP Family Medicine; Visit Provider Nurse Practitioner Family
DX: Z20.822 Contact with and (suspected) exposure to COVID-19 (principal)
CPT/HCPCS: 87635; C9803

== ENCOUNTER → 2021-04-02 10:27 | Outpatient (CLI) | payer MEDICARE, SELFPAY ==
[2020-09-01 21:30] VITALS: BMI 32.8
--- NOTE | 2021-04-03 18:56 | DI.NM.S_ITS ---
DATE OF SERVICE: 04/02/2021 PROCEDURE PERFORMED: Pharmacological perfusion study. INDICATIONS: Coronary artery calcification with underlying hypertension and hyperlipidemia. RADIOPHARMACEUTICAL: 24.3 millicurie technetium-99m Myoview IV was injected at stress and 25.1 millicurie technetium-99m Myoview IV was injected at rest. CARDIAC STRESS: The patient underwent IV Lexiscan perfusion study under the supervision of an attending staff using standard intravenous Lexiscan, as per protocol. The patient remained hemodynamically stable. Baseline rhythm was sinus with first-degree AV block. During stress, no convincing ischemic changes or significant arrhythmias seen. No anginal symptoms were reported. RAW DATA: There is significant subdiaphragmatic activity, as well as soft tissue shadow seen involving the inferior border of the heart. GATED STUDY: Resting LV ejection fraction 84 percent and stress LV ejection fraction 86 percent without any obvious wall motion abnormalities. Resting end- diastolic volume 69 mL. TID ratio is 1.70, which is abnormal. However, this is a pharmacological perfusion study. Visually, I do not see any significant transient ischemic dilatation. Lung/heart ratio 0.35, which is within normal limits. MYOCARDIAL PERFUSION SCAN: Stress supine and resting supine images revealed moderate-size, mild to moderately decreased perfusion of inferior wall extending into the inferoapex, which got significantly improved during stress prone images, suggestive of diaphragmatic tissue attenuation artifact. There was no convincing reversible ischemia or infarction pattern. CONCLUSION: I will call this study likely a normal myocardial perfusion study with evidence of diaphragmatic tissue attenuation artifact, which got significantly improved during the stress prone images. During raw data, there is increased subdiaphragmatic activity, as well as soft tissue shadow seen near the inferior border of the heart. Left ventricular function is preserved. No obvious wall motion abnormalities. Transient ischemic dilation ratio 1.7. However, visually, I do not see any significant transient ischemic dilatation. This is a pharmacological stress test. Overall, this is a low-risk myocardial perfusion study. Carly Mcneal - DONA/oren/sacha doc#: [id number]/job#: [id number] dd: 04/03/2021 16:56:00 dt: 04/03/2021 18:35:00 DICTATING MD/COPIES TO: Arron Hollis MD COPIES MNE: SOTERO;
== END ==
PROVIDERS: Family Provider Physician Assistant Medical; PCP Family Medicine; Referring Provider Internal Medicine Cardiovascular Disease; Visit Provider Internal Medicine Cardiovascular Disease
DX: I25.10 Atherosclerotic heart disease of native coronary artery without angina pectoris (principal); R06.00 Dyspnea, unspecified
CPT/HCPCS: 78452; 93017; A9502; J2785

== ENCOUNTER → 2021-06-26 10:21 | Outpatient (CLI) | payer MEDICARE, SELFPAY ==
[2020-09-01 21:30] VITALS: BMI 32.8
--- NOTE | 2021-06-26 | DI.US.S_ITS ---
PROCEDURE: US PELVIC COMPLETE INDICATIONS: LEFT OVARIAN CYST TECHNIQUE: Real-time scanning was performed of the pelvic organs, with image documentation. Additional endovaginal scanning was necessary due to incomplete visualization of the adnexal and endometrial structures by transabdominal scanning. COMPARISON: [facility], RG, CT ABDOMEN/PELVIS WITH CONTRAST, 08/07/2020, 10:37. [facility], CT, CT CHEST ABD PEL W CON, 08/28/2020, 13:05. [facility], US, US PELVIC COMPLETE, 11/21/2020, 11:29. FINDINGS: Uterus: Uterus is anteverted and normal in size at 5.3 x 4.3 x 2.8 cm. No fibroids seen. The myometrium is homogeneous. The endometrium measures 2 mm combined thickness. Cervix is within normal limits. Ovaries: Right ovary is not identified. Left ovary measures 6.7 x 5.6 x 4.3 cm. Left ovarian cyst measuring 6 x 4.8 x 3.2 cm the cyst appears anechoic with posterior acoustic enhancement. No internal blood flow. (Previously measured 5.4 x 4.1 x 3.7 cm). (Previously 5.6 x 5.3 x 4[address] 08/07/2020). Other: No pathologic free abdominal or pelvic fluid. IMPRESSION: 1. Left ovarian anechoic simple cyst measuring 6 cm is slightly increased in size. -recommend follow-up pelvic ultrasound in 1 year. 2. Right ovary is not seen on this exam. 3. Normal sonographic appearance of the uterus and endometrium. We strive to produce accurate, complete, and clear reports of imaging services. To assist us in improving patient care, this report was composed using standard report templates and voice recognition software. Therefore, it may contain abnormal punctuation, insertions and/or omissions. Occasional wrong-word or sound-alike substitutions may occur. Though we review the report and make efforts to correct it, we do recommend that the report be read carefully in proper context to recognize any text inaccuracies. Dictated by: Gurjit Gallegos M.D. on 06/26/2021 at 12:51 Approved by: Gurjit Gallegos M.D. on 06/26/2021 at 13:01
== END ==
PROVIDERS: Family Provider Physician Assistant Medical; PCP Family Medicine; Referring Provider Obstetrics & Gynecology; Visit Provider Obstetrics & Gynecology
DX: N83.292 Other ovarian cyst, left side (principal); N83.8 Other noninflammatory disorders of ovary, fallopian tube and broad ligament
CPT/HCPCS: 76856

== ENCOUNTER → 2021-07-13 10:03 | Outpatient (CLI) | payer MEDICARE, SELFPAY ==
[2020-09-01 21:30] VITALS: BMI 32.8
[2021-07-13 15:11] LABS: COVID19 -Nasal RAPID Negative (Negative)
== END ==
PROVIDERS: Family Provider Physician Assistant Medical; PCP Family Medicine; Visit Provider Physician Assistant
DX: Z01.812 Encounter for preprocedural laboratory examination (principal); Z20.822 Contact with and (suspected) exposure to COVID-19
CPT/HCPCS: 87635; C9803

== ENCOUNTER 2021-07-16 10:39 | Observation (INO) | payer MEDICARE, SELFPAY ==
[2020-09-01 21:30] VITALS: BMI 32.8
[2021-07-07 09:42] VITALS: BMI 32.8
[2021-07-15] VITALS (16 sets, daily range): BP systolic 121–161; BP diastolic 58–78; PULSE 76–97; RESP 10–18; TEMP 36.3–36.9; O2SAT 94–100; BMI 32.8; BMI 37.2
--- NOTE | 2021-07-15 06:00 | DI.RAD.S_ITS ---
PROCEDURE: XR KNEE LT 1TO2V INDICATIONS: prosthesis placement, TOTAL LEFT KNEE TECHNIQUE: 2 view(s) of the knee acquired. COMPARISON: None. FINDINGS: Bones: Patient is status post knee joint arthroplasty. Hardware components are in expected positions. Visualized bony structures are intact. Soft tissues: Overlying postoperative changes are noted. IMPRESSION: Postoperative changes as above. Dictated by: Edna Lewis M.D. on 07/15/2021 at 14:15 Approved by: Edna Lewis M.D. on 07/15/2021 at 14:15
[2021-07-15] MEDS: ACETAMINOPHEN 325 MG TABLET 975 MG PO (10:34)
[2021-07-15] MEDS: LACTATED RINGERS 1,000 ML 42 ML IV ×2 (10:36→12:50)
[2021-07-15 10:37] LABS: Add Manual Diff / Slide Review NO; Basophils Absolute Auto 0 /uL (0-100); Basophils Percent Auto 0.7 % (0-2); Eosinophils Absolute Auto 200 /uL (0-450); Eosinophils Percent Auto 5.2 % (2-4); Hematocrit 38.9 % (36-46); Hemoglobin 13.5 g/dL (12.0-16.0); Lymphocytes Absolute Auto 1000 /uL (1100-4500); Mean Corpuscular HGB Conc 34.6 % (30-36); Mean Corpuscular Hemoglobin 29.6 PG (26-34); Mean Corpuscular Volume 85.3 fL (80-100); Monocytes Absolute Auto 600 /uL (0-900); Neutrophils Absolute Auto 2800 /uL (1500-7000); Neutrophils Percent Auto 59.1 % (50-75); Platelet Count 282 X10^3/uL (150-400); Red Blood Cell Count 4.56 X10^6/uL (4.0-5.2); Red Cell Distribution Width 13.8 % (11.6-14.8); White Blood Cell Count 4.7 X10^3/uL (4.5-11.0)
--- NOTE | 2021-07-15 10:50 | PM.PREOP ---
Pre-operative Note COVID-19 COVID-19 status: Negative Result date/Date tested (Pos, Neg/Pending): 07/13/21 Interval Note History & Physical reviewed/Exam performed by Physician: Yes Changes to H&P: No
--- NOTE | 2021-07-15 10:52 | PM.OP.1 ---
Operative Date/Time/Diagnoses Date of procedure: 07/15/21 Time of procedure: 13:12 Pre-op diagnosis: Left knee osteoarthritis Post-op diagnosis: same Procedure & Clinicians Procedure: Left total knee replacement Same procedure as scheduled: Yes Indications: The patient has had progressively worsening left knee pain with radiographic changes consistent with arthritis. Non-operative management has failed and the patient has requested total knee replacement. The risks, benefits and alternatives to surgery were discussed with the patient prior to proceeding. Risks discussed included, but were not limited to, failure to relieve pain, stiffness, infection, nerve damage, deep venous thrombosis, pulmonary embolism, stroke, coma, heart attack, permanent paralysis and , as well as the potential need for eventual revision of the prosthetic. Surgeon: Delgado Carlin Ice Grinder: Mahogany Munguia Anesthesia Type: General, Spinal and Local Operative Notes Findings: Severe tricompartmental osteoarthritis with initial flexion contracture Closure Type: primary Specimen(s): none sent Prosthetic devices, grafts, tissues, transplants, or devices: Implants used in this procedure were manufactured by the [employer] and included the BCS II Journey total knee replacement with a size 5 left cobalt chromium femur, a size 4 left non porous tibial base plate, a 9 mm cross-linked polyethylene tibial insert and a 29 mm oval Haleigh II patella. Applied: implant(s) Estimated Blood Loss (mL): 25 Blood products transfused: none Tourniquet time (min): 47 Procedure in detail: The patient was seen in the pre-operative area, where the left knee was identified as the operative site and this was marked with my initials. The patient received pre-operative antibiotics, and was taken to the operating room and placed on the operative table in the supine position. After satisfactory anesthesia, a assistant associate full professor out was performed. The left leg was encircled with a tourniquet about the proximal thigh, and the leg was prepared from the toes to the tourniquet with ChloroPrep in the usual fashion and draped through sterile drapes. The leg was elevated and exsanguinated with Eschmark bandage and the tourniquet inflated to 250 mmHg pressure. The knee was approached through an approximately 18 cm incision centered over the patella and carried into the knee through a medial parapatellar arthrotomy. The anterior osteophytes and soft tissues were removed. The rotational landmarks of Herrin's line and the transepicondylar axis were marked on the femur with electrocautery, and intramedullary guide holes for the femur and tibia were created. The distal femoral cut was made in 6 degrees of valgus using the intramedullary guide at the +2 cut setting due to the pre-existing flexion contracture The proximal tibial cut was then made using the intramedullary guide, taking 9 mm of bone off the less involved side. The extension gap was checked and the rotation of the femoral component confirmed with the gap balancing blocks. The anterior, posterior and chamfer cuts were then made. The posterior osteophytes and soft tissues were then removed. The posterior capsule was injected with part of a mixture of 60 ml 0.25% Marcaine mixed with 20 ml Exparel and 4 mg of morphine for post-operative pain control. The remainder of this mixture was injected into the capsule and subcutaneous tissues during cement curing. The tibia was prepared with the rotation set by an extra medullary guide. Trial tibial and femoral components were then placed and the intercondylar notch cut through the femoral trial. Range of motion was 0-135 degrees, with good stability throughout the range. The patella was then cut to accommodate the patellar prosthetic. There was no need for a lateral release. The trials were then removed, and the femoral hole plugged with a bone plug. The bone was prepared with pulsatile lavage, and dried with a sponge. Cement was applied and the final prosthetics placed. Excess cement was removed during and after cement curing. After confirming there was no extruded cement posteriorly, the final tibial insert was placed. The knee was copiously irrigated and the tourniquet deflated. Hemostasis was obtained. The capsule was closed with interrupted # 2 polyester sutures. The subcutaneous layer was closed with 3-0 Vicryl, and the skin with a running 3-0 V-Lock suture and Dermabond. An Aquacel Ag dressing was applied and the patient was taken to recovery having tolerated the procedure well. Complications: none Post-operative Condition: stable Disposition: PACU Plan for aftercare: The patient will be maintained on a standard total knee replacement protocol with weight bearing as tolerated. The patient will receive aspirin and sequential compression devices for DVT prophylaxis. The patient will be discharged home when safe for the home environment.
[2021-07-15] MEDS: CEFAZOLIN 2 GM/20 ML SYRINGE IV (11:45)
[2021-07-15] MEDS: TRANEXAMIC ACID 1,000 MG VIAL 1000 MG INJ ×2 (11:46→12:52)
--- NOTE | 2021-07-15 12:01 | SUR.OPER ---
Supine on padded OR bed. Pillow under head, arms secured on padded armboards <90 degree abduction. Safety belt across torso. Non-operative leg secured with tape over blanket over lower leg. Operative leg secured in DeMayo positioner. Foam padded brace at thigh of operative leg.
[2021-07-15] MEDS: BUPIVACAINE 0.25% (PF) 60 ML, EPINEPHrine 0.3 MG INJ (12:04)
[2021-07-15] MEDS: MORPHINE 4 MG/ML INJ INJ (12:06)
[2021-07-15] MEDS: BUPIVACAINE LIPOSOME 266 MG/20 ML VIAL INJ (12:06)
[2021-07-15] MEDS: fentaNYL 100 MCG/2 ML INJ IV ×2 (13:35→13:50)
[2021-07-15] MEDS: ONDANSETRON 4 MG/2 ML INJ IV ×2 (13:41→14:51)
[2021-07-15] MEDS: METOCLOPRAMIDE 10 MG/2 ML INJ IV (13:55)
[2021-07-15] MEDS: OXYCODONE IR 5 MG TABLET PO ×2 (14:00→14:54)
--- NOTE | 2021-07-15 14:41 | SUR.PHASEI ---
06/14/22-1425 more alert/awake/relaxed. Pain down and tolerable. no further c/o nausea. vss. csm normal=wnl to left foot. spinal resolved. dressing left knee cdi. no urge to void. report to piter IGLESIAS on 2nd floor,questions answered. met criteria. transfer to floor by bed, with oxygen at 2l nc. Belongings brought to floor earlier by silo tender Gerri. Patient has hearing aids in both ears on transfer.
[2021-07-15] MEDS: LACTATED RINGERS 1,000 ML 100 ML IV (14:49)
[2021-07-15] MEDS: LOSARTAN 50 MG TABLET 100 MG PO (21:25)
[2021-07-15] MEDS: ACETAMINOPHEN 325 MG TABLET 650 MG PO (21:25)
[2021-07-15] MEDS: AMLODIPINE 5 MG TABLET 10 MG PO (21:25)
[2021-07-15] MEDS: DOCUSATE 100 MG CAPSULE PO (21:25)
[2021-07-16] MEDS: OXYCODONE IR 5 MG TABLET PO ×2 (01:23→12:50)
[2021-07-16] MEDS: LACTATED RINGERS 1,000 ML 100 ML IV (01:25)
[2021-07-16 04:30] VITALS: BP 123/64; PULSE 88; RESP 18; TEMP 36.7; O2SAT 95
[2021-07-16] MEDS: LEVOTHYROXINE 100 MCG TABLET PO (05:36)
[2021-07-16] MEDS: LEVOTHYROXINE 75 MCG TABLET PO (05:36)
[2021-07-16 06:17] LABS: Hematocrit 35.8 % (36-46); Hemoglobin 12.2 g/dL (12.0-16.0)
--- NOTE | 2021-07-16 07:28 | PM.DS.1 ---
History of Present Illness History of Present Illness Date Patient Seen: 07/16/21 Time Patient Seen: 07:28 Chief complaint: LT TKA 07/15/20 *OPB* Narrative: The history and physical is contained in the chart previously completed note. Please refer to that note for this information. Discharge Providers Provider Date of admission: July 15, 2021 Discharge Date: 07/16/21 Primary care physician: Beka Tucker DO Consults: 07/15/21 14:37 Consult to Discharge Planning Routine Comment: Consult to Physical Therapy Evaluate & Treat Comment: Physician Instructions: postop TKA protocol Discharge provider: Delgado Carlin MD Summary Hospital Course Discharge Diagnosis: 1. Left knee osteoarthritis 2. Post hemorrhagic anemia Hospital Course: The patient was admitted to the hospital and taken directly to the operating room on July 15, 2021. She underwent a left total knee replacement without complications. On postoperative day 1 she was comfortable. She had not yet had physical therapy. At the time of this dictation the plan is for her to go home after physical therapy this morning. Status at Discharge Cognitive/behavioral status at discharge: at baseline, oriented Functional status at discharge: uses cane/walker Overall status at discharge: patient is progressing back to baseline Time Spent with Patient Time spent: Less than 30 minutes Exam Vital Signs (past 8 hours): - 07/16/21 04:30 Temperature 98.0 F Pulse Rate 88 Respiratory Rate 18 Blood Pressure 123/64 Pulse Oximetry 95 Oxygen Delivery Method Nasal Cannula Oxygen Flow Rate 2 Narrative Exam Narrative: Left knee wound is dressed with no drainage on the bandage. Calf is soft. Light touch and motion are intact in the left lower extremity. Objective Labs Result Diagrams: 07/16/21 06:05 Labs: Laboratory Results - last 24 hr 07/15/21 07/16/21 10:15 06:05 WBC 4.7 RBC 4.56 Hgb 13.5 12.2 Hct 38.9 35.8 L MCV 85.3 MCH 29.6 MCHC 34.6 RDW 13.8 Plt Count 282 Neut % (Auto) 59.1 Lymph % (Auto) 22.0 L Saline % (Auto) 13.0 Eos % (Auto) 5.2 H Baso % (Auto) 0.7 Neut # (Auto) 2800 Lymph # (Auto) 1000 L Saline # (Auto) 600 Eos # (Auto) 200 Baso # (Auto) 0 PFSH Medical History Anemia CAD (coronary artery disease) Hearing loss HLD (hyperlipidemia) Hypertension Hypothyroidism Idiopathic thrombocytopenic purpura (ITP) (09/2020) Lower back pain Osteoarthritis Ovarian mass Prediabetes Surgical History Anesthesia History of carpal tunnel surgery (~2019) Family History Grandmother Colon cancer Mother Ovarian cancer Father Prostate cancer History of heart disease Brother Bladder cancer Family/Other Bone cancer Brain cancer Social History household members: spouse Smoking Status: Never smoker alcohol intake: current substance use type: does not use Discharge Assessment & Plan Assessment and Plan Assessment: Stable postoperative day 1 status post left total knee replacement. There is a mild post hemorrhagic anemia that should not require specific treatment. Plan of Treatment: Discharge today provided she make satisfactory progress in physical therapy. Follow-up in my office in 10-14 days. Oxycodone prescription has been sent to [facility] in [place]. She has been instructed in the use of aspirin for DVT prophylaxis and Tylenol for pain control. Discharge Plan Discharge Plan Patient Disposition: Home Discharge orders & Medications Discharge Orders: Discharge (Order); Ordered 07/16/21 Ordered By: Delgado Carlin Prescriptions: New acetaminophen 325 mg Tablet 650 mg PO TID Qty: 30 0RF aspirin 81 mg Tablet,Delayed Release (Dr/Ec) 81 mg PO BID 42 Days Qty: 84 0RF oxycodone 5 mg Tablet 5 mg PO Q4H PRN (Reason: Pain, Moderate (4-6)) Qty: 40 0RF Continued atorvastatin 10 mg tablet 10 mg PO DAILY 0RF levothyroxine 175 mcg capsule 175 mcg PO DAILY 0RF B-complex with vitamin C Capsule 1 cap PO DAILY 0RF furosemide 20 mg tablet 40 mg PO DAILY 0RF losartan 100 mg Tablet 100 mg PO BEDTIME 0RF potassium chloride 10 mEq Capsule, Extended Release 10 meq PO DAILY 0RF amlodipine [Norvasc] 10 mg Tablet 10 mg PO BEDTIME 0RF Discontinued acetaminophen 500 mg Tablet 1,000 mg PO Q6H PRN (Reason: Pain) 0RF Follow up/Referrals: Delgado Carlin MD [Physician] - 2 Weeks Beka Tucker DO [Primary Care Provider] - Diet/Activity/Treatments Diet: Diet as Tolerated and Regular Activity: You may bear weight as tolerated on your left leg. Cold/Heat Therapy: You may apply ice to your left knee for 15 minutes every hour as needed for pain control. Skin/Wound/Dressing Care Report to your healthcare provider any signs of infection, such as:: chills, fever, night sweats, increased pain, unusual drainage and unusual redness Dressing: You may remove the King wrap 3 days after surgery and shower normally with the deeper dressing in place. If the deeper dressing becomes saturated with either water or blood, please call the office to have it evaluated. Visit Report/Discharge Packet Instructions: DI for Knee Replacement Stand Alone Forms: Surgery Discharge Discharge Data Primary Care Provider: Beka Tucker Attending Provider: Delgado Carlin Quality VTE Deep Vein Thrombosis/Pulmonary Embolism Present on Admission: No
[2021-07-16 08:15] VITALS: BP 140/62; PULSE 83; RESP 18; TEMP 36.6; O2SAT 98
[2021-07-16] MEDS: DOCUSATE 100 MG CAPSULE PO (09:27)
[2021-07-16] MEDS: ACETAMINOPHEN 325 MG TABLET 650 MG PO (09:30)
[2021-07-16] MEDS: ATORVASTATIN 20 MG TABLET 10 MG PO (09:30)
--- NOTE | 2021-07-16 10:40 | CM.DANOTE ---
DCP: Case received, EMR reviewed and met with patient. Introduced self and role. Was able to obtain information regarding patient's baseline activity status prior to her surgery. DCP assessment completed with information currently available. Patient is a 76 year old female who admitted yesterday morning to the care of the orthopedist team. PCP: Dr. Tucker. Payer: confirmed: Medicare/[employer]. Patient came to the hospital for a surgical procedure. She had a left total knee replacement. Patient has history of osteoarthritis. Met with patient in her room. She is alert and oriented. She was sitting up in her chair at bedside.. Confirmed that patient resides in [place] with her spouse, Dave. At patient's baseline, she uses a walker at home. She indicated that they both live in a one story home. She also indicated that she has a raised toilet seat, planned for surgery about a year ago, but had to postpone due to medical issues. She drives, she stated that her does not, but can have neighbor pick her up. She is set up with outpatient P.T. at [facility] in [place]. P: Patient has discharge orders today. She will need to work with P.T. prior to discharge. Josi Ramon RN/Astronomy Department Chair Discharge Planning/Care Management CM Discharge Assessment Start: 07/16/21 10:38 Freq: Status: Active Protocol: Document 07/16/21 10:38 (Rec: 07/16/21 10:40 [id number]) Discharge Planning Assessment Assigned Database Management Specialist Josi Ramon RN/Astronomy Department Chair Advance Directives? Yes Advance Directives on File Yes History Provided By Patient,Family Member,Medical Record Prior Living Arrangements House Household Members spouse Type of transporation used prior to Drives own vehicle admit Independent with ADL's Yes Is patient alert and oriented? Yes DME Already Rented / Owned Elevated Toilet Seat,FWW / Walker Patient/Family Preference OP PT Therapy Comment Patient is using [facility] in [place]. Barriers to Discharge No Discharge Plan Home Transportation Arrangement Family Referrals Initiated None needed Whiteboard Updated in Patient Room with Yes name and ext. # of Database Management Specialist Review Status In Process Next Review Type Continued Stay Review Pre-Anesthesia Assessment Start: 07/07/21 09:42 Freq: Status: Complete Protocol: Document 07/07/21 09:42 [facility] (Rec: 07/07/21 10:34 [facility] [id number]) Pre-Anesthesia Assessment Patient Information Reviewed Via Phone Assessment Assessment Completed With Patient Comment Labs/EKG done per pt, not available, COVID screen @ Primary Care Provider Beka Tucker Seen Specialist in Last 12 Months Yes Specialist Seen Oncologist,Orthopedist Primary Language Gabonese Preferred Language Gabonese Community Relations Coordinator Required No Height 5 ft 3 in Weight 185 lb Body Mass Index (BMI) 32.8 Hearing Ability Hard of Hearing,Use of Hearing Aid Visual Assist Glasses Dentition Type Teeth, Natural Present,Teeth, Missing Barriers to Learning None Hx Anesthesia Reactions No Hx Family Anesthesia Reaction No Hx Malignant Hyperthermia No Hx Blood Transfusions Yes: Spring 2020 r/t ITP Hx Blood Transfusion Reaction No Anesthesia Review Requested No alcohol intake current alcohol intake frequency holidays/special occasions only Smoking Status Never smoker Substance Use Type does not use Pain Present Pain Reported Musculoskeletal Symptoms Abnormal Gait,Difficulty Walking,Joint Pain,Muscle Weakness History of Falling (Recent or History of Yes ) Patient is completely paralyzed or No completely immobile Prosthesis or Orthotic Device Front Wheel Walker Mental Status Oriented to own ability Is patient on oxygen? No Does patient have VILLALOBOS/SOB No Hx Sleep Apnea No CPAP/BIPAP use not prescribed Currently Taking a Beta Donna No Can You Climb a Flight of Stairs Without Yes SOB Hx Chest Pain No Hx SOB No Hx Syncope or Dizziness Yes: Lightheadedness r/t dehydration Anti-Coagulant Therapy No Has a Janitorial Tech Yes: Dr. Brito-last visit 04/10/21 Cardiac Testing Yes: Nuc perf scan @ -low Hx Pacemaker/ICD No Pacemaker Rep Required? No Cardiac Clearance Received Not Applicable Comment Cardiac records put in surgery folder for dos Diet Type At Home Regular dysphagia No Urinary Catheter Present No Hx Urinary Self Catheterization No Diabetes No: Pre-diabetes Patient No Lactating No Hx Drug Resistant Organism No Presence of External or Internal Medical Yes: Bilat hearing aids Devices Have you had any close contact with No someone diagnosed with COVID-19? Received a COVID vaccine? Yes Received all doses? Yes Marital Status Lives With spouse Prior Living Arrangements House Number of Floors (Floors) One Floor Support System Spouse Does the Patient Have Assistance After Yes: Friend(RN) and Surgery will assist with care at [place] Patient Discharge Plan Description Return Home Comment Pt advised overnight length of stay per surgeon office Feels Safe in Current Environment Yes Been Physically Hurt or Threatened By a No Person in Current Environment Do you have thoughts of harming yourself None or others? Are you currently considering suicide? No Do you have a plan to hurt yourself or No Plan others? Do You Have Any Spiritual Beliefs That No May Affect Your HC Choices? Do You Have Any Cultural Practices That No May Affect Your HC Choices? Comment Abran Who Can We Speak to About Patient's Care Family, friends Identifying Code for Release of Patient Declines to issue Information Health Care Proxy/Next of Kin Dave () Inder (son) Health Care Proxy Phone Number Dave: [phone] Inder: [phone] Emergency Contact Name Fatimah Carmona Emergency Contact , Advance Directives? Yes Advance Directives on File Yes Power of Legal Investigator Yes Power of Legal Investigator Name Inder Mcneal Power of Legal Investigator PAC Instructions Do not shave/clip surgical site,Durable medical equipment ,Medications to take/avoid, Nasal antibiotic,No ETOH/ petroleum product on skin DOS, NPO,Post-op transportation,Pre -surgical wash,Sensory aids, Sturdy shoes/comfortable clothes,Do not bring valuables and remove jewelry
--- NOTE | 2021-07-16 10:52 | PT.IIE ---
Current Diagnoses Unilateral primary osteoarthritis, left knee (07/16/21) Surgery Performed Operation Date: 07/15/21 11:15 Actual Procedures p Total Knee Arthroplasty(Left) - Delgado Carlin MD Surgical History (Last Reviewed 07/15/21 @ 13:03 by Michelle Hoyt, RN) Anesthesia Medical History (Last Reviewed 07/15/21 @ 13:02 by Michelle Hoyt, RN) Anemia CAD (coronary artery disease) Hearing loss HLD (hyperlipidemia) Hypertension Hypothyroidism Idiopathic thrombocytopenic purpura (ITP) (09/2020) Lower back pain Osteoarthritis Ovarian mass Prediabetes Physical Therapy Inpatient Evaluation/Re-Eval M1 PT/OT-IP Prior Functional Status Start: 07/15/21 16:20 Freq: NEEDED Status: Active Protocol: Document 07/16/21 10:52 AW (Rec: 07/16/21 12:59 AW [id number]) Medical Review Prior Functional Status Medical History Reviewed Yes Communication WNL Mobility and Gait Pt uses a 4WW at home 100% of the time for ~1 year. She uses a cane out of the house and at night for trips to the bathroom. Activities of Daily Living and IADL's Pt is independent with all ADL 's. Her is able to help with IADL's but does not drive. She depends on friends and neighbors to drive her to appointments. Social History Household Members spouse Living Arrangements House Number of Floors (Floors) One Floor Number of Stairs To Enter/Railing? 1 wide ABIGAIL without rail Home Environment Standard Height Toilet,Walk in Shower Home Equipment Front Wheel Walker,Four Wheel Walker,Straight Cane,Raised Toilet Seat Without Armrests, Shower Seat with Backrest, Shower Seat without Backrest, Bed Rails,Grab Bars Near Toilet Additional Social History Comment Pt lives with her spouse, Nic, who is able to help with some things around the house. Pt's daughter will stay with her for the first week and her sister is arriving to take over care for the second post- op week. M2 PT-IP Current Condition Start: 07/15/21 16:20 Freq: NEEDED Status: Active Protocol: Document 07/16/21 10:52 AW (Rec: 07/16/21 12:59 AW [id number]) Physical Therapy Current Condition Current Condition Evaluation Date 07/16/21 Treatment Diagnosis L TKA; difficulty in walking Onset Date 07/15/21 M3 PT-IP Subjective Start: 07/15/21 16:20 Freq: NEEDED Status: Active Protocol: Document 07/16/21 10:52 AW (Rec: 07/16/21 12:59 AW [id number]) Subjective Physical Therapy Visit Type Type Initial Evaluation Visit Start Time 10:25 Visit Stop Time 10:52 Total Visit Minutes 27 Physical Therapy Visit Comments Patient Comments Pt is up in the chair and willing to work with PT. Patient Goals Pt hopes to return home today Therapy Pain Assessment Pain When Pain Assessed After Treatment Pain Present Pain Present Pain Reported Location Left Knee Intensity 7 Scale Used Numeric (0 - 10) Pain Management Techniques Apply Cold,Elevation,Timing of Activity with Medications M4 PT-IP Mobility and Gait Start: 07/15/21 16:20 Freq: NEEDED Status: Active Protocol: Document 07/16/21 10:52 AW (Rec: 07/16/21 12:59 AW [id number]) PT-Bed Mobility Assessment Supine to Sit Supine to Sit Minimal Assistance,Bedrails Sit to Supine Sit to Supine Minimal Assistance,Bedrails PT-Transfer Assessment Sit to and From Stand Sit to and from Stand Standby Assistance,1 Person Assistance,Use of Upper Extremities Equipment Transfer Assistive Device Gait Belt,Front Wheeled Walker Orthotic/Prosthetic Devices or Brace: No Transfers Transfer Destination Bed,Chair Transfer Technique Stand Step Pivot Transfer Ability Level of Assist Standby Assistance Comments Mobility Comments Pt was sitting up in the chair as PT arrived. She stood from the chair SBA and used FWW to ambulate in the halls a total of 100 feet. She returned to the room and agreed to bed mobility assessment, requiring min assist in and out of bed to support her operative leg. Pt then stood and completed stair training with platform step x 2 before returning to the chair. She was left with call light and tray table in reach, ice pack on left knee. Gait Assessment Gait Gait Assistance Required: Standby Assistance,Contact Guard Assist Distance (Feet) 100 Able to Maintain Weight Bearing Status Yes During Gait Assistive Devices Assistive Device Gait Belt,Front Wheeled Walker Orthotic/Prosthetic Devices or Brace: No Gait Deviations General Gait Pattern Antalgic,Flexed Trunk,Step-to Gait Factors Limiting Gait Function Factors Limiting Gait Function Decreased Strength,Limited Range of Motion,Pain,Poor Balance Comments Gait Comments Pt tended to get too close to front of walker frame initially but was able to adjust in response to cues. Pt relies on FWW for heavy UE weightbearing, especially as she fatigues. Stair Climbing Assessment Evaluation Level of Assist On Stairs Contact Guard Assistance Devices Stair Climbing Assistive Devices Front Wheel Walker Technique/Endurance Stair Climbing Direction Ascend and Descend Stair Climbing Technique Step to Step Number of Steps Climbed 1 Query Text: Stair Climbing Set # Repetitions (reps) 2 Comments Stair Climbing Comments Pt was able to sequency independently after education and demonstration. PT-Balance Assessment Sitting Balance and Reactions Static Sitting Balance Ability Normal Dynamic Sitting Balance Ability Good Standing Balance and Reactions Static Standing Balance Ability Good Dynamic Standing Balance Ability Fair Device Used FWW M5 PT-IP Objective Assessments Start: 07/15/21 16:20 Freq: NEEDED Status: Active Protocol: Document 07/16/21 10:52 AW (Rec: 07/16/21 12:59 AW [id number]) Orientation Orientation/Cognition Level of Alertness Alert Orientation Name,Day of Week,Place, Situation Language Function Ability No Deficits Noted Safety Awareness Understands Safety Issues Memory Description No Deficits Noted Gross Range of Motion Lower Extremity ROM Assessment Left Impaired Strength Lower Extremity Strength Assessment Left Impaired Hip 3+/5 Knee 3-/5 Ankle 4/5 Sensation Assessment Sensation Gross Sensation WNL M6 PT-IP Treatment Start: 07/15/21 16:20 Freq: NEEDED Status: Active Protocol: Document 07/16/21 10:52 AW (Rec: 07/16/21 12:59 AW [id number]) Physical Therapy Treatment Exercises Exercises Ankle Pumps,Gluteal Sets,Heel Slides,Seated Knee Flexion/ Extension Education Education Provided Weight Bearing Status,Post-Op Packet,Safety Other Treatments Other Treatment Performed Educated pt on ROM focus in early phase of rehab, weightbearing status, safe use of FWW, and level of assist required especially for stairs . M7 PT-IP Assessment and Plan Start: 07/15/21 16:20 Freq: NEEDED Status: Active Protocol: Document 07/16/21 10:52 AW (Rec: 07/16/21 12:59 AW [id number]) PT Summary Assessment and Plan Potential Rehabilitation Potential Good Status of Condition at Evaluation Evolving Summary Impairments Pain,ROM,Strength,Balance,Bed Mobility,Transfers,Gait Assessment Summary Carly is a 76 yo woman seen for PT evaluation on POD1 following L TKA. She uses a rollator or cane for household and short distance community ambulation at baseline. She required SBA/CGA for all mobility with FWW on evaluation and was primarily limited by pain. Pt has all necessary equipment and good support system at home. She will be safe to discharge home with assist and outpatient PT once medically stable. Frequency of Treatment Frequency Of Treatment Discharge Weight Bearing Status Weight Bearing Status Weight Bear as Tolerated Recommendations To Nursing Amount of Assist Needed Standby Assistance,1 Person Assist Discharge Recommendations PT Discharge Recommendations Home with Assistance, Outpatient PT Transportation Needs at Discharge Private Vehicle
--- NOTE | 2021-07-16 14:23 | PC.NURSE ---
Patient is A&Ox3 this a.m. Ambulating to BR with SBA. VSS, afebrile on RA. She reports minimal pain and denies need for pain medications this a.m. She is cleared for discharge after evaluation from PT/OT. Dressing C/D/I, +CMS to BLE's, minimal swelling to LLE. She is able to dress herself this a.m. Denies n/v, with good po intake.She verbalizes understanding of discharge instructions including site care, follow up appointments, medication, exercises, signs of symptoms of infection. She is escorted via w/chair to private vehicle with her friend along with all of her belongings including FWW.
== END 2021-07-16 13:15 | disposition home or self-care (01) ==
LOC: OR 10:53 → AC 10:53
PROVIDERS: Admitting Provider Orthopaedic Surgery; Family Provider Physician Assistant Medical; PCP Family Medicine; Referring Provider Orthopaedic Surgery; Visit Provider Orthopaedic Surgery
PROC: 0SRD0JZ Replacement of Left Knee Joint with Synthetic Substitute, Open Approach (ICD-10-PCS; CPT 27447; principal; 2021-07-15 11:15)
DX: M17.12 Unilateral primary osteoarthritis, left knee (principal); I10 Essential (primary) hypertension; E78.5 Hyperlipidemia, unspecified; I25.10 Atherosclerotic heart disease of native coronary artery without angina pectoris; E03.9 Hypothyroidism, unspecified; R73.03 Prediabetes; D50.0 Iron deficiency anemia secondary to blood loss (chronic)
CPT/HCPCS: 27447; 36415; 73560; 85014; 85018; 85025; 97161; C1776; G0378; C9290; J0171; J0690; J1100; J2250; J2270; J2405; J2704; J2765; J3010

== ENCOUNTER 2021-07-21 19:06 | Emergency (ER) | payer MEDICARE, SELFPAY ==
[2021-07-15 15:39] VITALS: BMI 37.2
[2021-07-21 19:18] VITALS: BP 154/68; PULSE 87; RESP 17; TEMP 36.9; O2SAT 100; BMI 34.5
--- NOTE | 2021-07-21 19:24 | DI.US.S_ITS ---
PROCEDURE: US PERIPH VENOUS LOW EXTREM LT INDICATIONS: POST-OP EDEMA TECHNIQUE: Real-time imaging, as well as color and pulse Doppler interrogation, were performed of the lower extremity deep veins from the inguinal ligament to the popliteal fossa. COMPARISON: None. FINDINGS: The common femoral, femoral and popliteal veins are normally compressible, and free of intraluminal thrombus. Color and pulse Doppler demonstrate normal phasic intraluminal flow. There is normal augmentation response to distal compression maneuver. IMPRESSION: Negative for deep venous thrombosis of the left lower extremity. Dictated by: Guido Roa M.D. on 07/21/2021 at 20:21 Approved by: Guido Roa M.D. on 07/21/2021 at 20:22
--- NOTE | 2021-07-21 20:40 | ED_ITS ---
HPI - Extremity Problem General Chief complaint: Extremity Problem,Nontraumatic Stated complaint: sent for r/o blood clot in left leg Time Seen by Provider: 07/21/21 19:23 Source: patient Mode of arrival: Wheelchair History of Present Illness HPI Narrative: 76-year-old female 1 week status post left total knee replacement here for evaluation for potential blood clot in the left lower extremity. She has been having swelling in the left leg. Went to walk-in clinic. Sent to the emergency department for a DVT for concern of a blood clot Related Data Home Medications Medication Instructions Recorded Confirmed B-complex with vitamin C 1 cap PO DAILY 08/14/20 07/15/21 atorvastatin 10 mg tablet 10 mg PO DAILY 08/14/20 07/15/21 levothyroxine 175 mcg capsule 175 mcg PO DAILY 08/14/20 07/15/21 furosemide 20 mg tablet 40 mg PO DAILY 09/25/20 07/15/21 amlodipine 10 mg tablet (Norvasc) 10 mg PO BEDTIME 10/16/20 07/15/21 potassium chloride 10 mEq 10 meq PO DAILY 10/16/20 07/15/21 capsule,extended release losartan 100 mg tablet 100 mg PO BEDTIME 07/07/21 07/15/21 Previous Rx's Medication Instructions Recorded acetaminophen 325 mg tablet 650 mg PO TID #30 tab 07/16/21 aspirin 81 mg tablet,delayed 81 mg PO BID 42 Days #84 tab 07/16/21 release oxycodone 5 mg tablet 5 mg PO Q4H PRN #40 tab 07/16/21 Allergies Allergy/AdvReac Type Severity Reaction Status Date / Time aspirin AdvReac Severe Pt has ITP Verified 07/07/21 10:03 NSAIDS (Non-Steroidal AdvReac Severe Pt has ITP Verified 07/07/21 10:03 Anti-Inflamma Review of Systems Cardiovascular Cardiovascular: Denies chest pain and Denies dyspnea Respiratory Respiratory: Denies dyspnea Musculoskeletal Musculoskeletal: Reports system reviewed and no additional complaints, except as documented and Reports as per HPI Integumentary/Breasts Skin/Breast: Reports system reviewed and no additional complaints, except as documented and Reports as per HPI Neurologic Neurologic: Reports system reviewed and no additional complaints, except as d ocumented Patient History Medical History Anemia CAD (coronary artery disease) Hearing loss HLD (hyperlipidemia) Hypertension Hypothyroidism Idiopathic thrombocytopenic purpura (ITP) (09/2020) Lower back pain Osteoarthritis Ovarian mass Prediabetes Surgical History Anesthesia History of carpal tunnel surgery (~2019) Family History Grandmother Colon cancer Mother Ovarian cancer Father Prostate cancer History of heart disease Brother Bladder cancer Family/Other Bone cancer Brain cancer Social History household members: spouse Smoking Status: Never smoker alcohol intake: current substance use type: does not use Smoking Status: Never smoker alcohol intake frequency: holidays/special occasions only Substance Use Type: does not use Exam Initial Vital Signs Initial Vital Signs: Vital Signs Temperature 98.4 F 07/21/21 19:18 Pulse Rate 87 07/21/21 19:18 Respiratory Rate 17 07/21/21 19:18 Blood Pressure 154/68 H 07/21/21 19:18 Pulse Oximetry 100 07/21/21 19:18 Resp Effort & Inspection: normal respiratory effort Cardio Rate: regular rate Skin Other: Patient with bruising around left leg consistent with stated surgical history Neuro Sensory Exam: no sensory deficits noted Extrem Other: Circumferential swelling left lower extremity Course Orders Ordered: ED Orders 07/21/21 19:24 US periph venous low extrem lt Stat Vital Signs Vital signs: Vital Signs - 8 hr 07/21/21 19:18 Temperature 98.4 F Pulse Rate 87 Respiratory Rate 17 Blood Pressure 154/68 H Pulse Oximetry 100 MDM - Extremity (Nontraumatic) Imaging Data US - DVT: Radiologist's Impression: [address] [address] Ultrasound Report Signed Patient: Carly Mcneal MR#: [id number] : 1945 Acct:[id number] Age/Sex: 76 / F Date of Service: 07/21/21 Loc: ED Accession Number: [id number] ?? Procedure: US periph venous low extrem lt Ordering Provider: Chava Barbosa D.O. PROCEDURE:? US PERIPH VENOUS LOW EXTREM LT ? INDICATIONS:? POST-OP EDEMA ? TECHNIQUE:? Real-time imaging, as well as color and pulse Doppler interrogation, were performed of the lower extremity deep veins from the inguinal ligament to the popliteal fossa.? ? COMPARISON:? None. ? FINDINGS:? The common femoral, femoral and popliteal veins are normally compressible, and free of intraluminal thrombus.? Color and pulse Doppler demonstrate normal phasic intraluminal flow.? There is normal augmentation response to distal compression maneuver. IMPRESSION:? Negative for deep venous thrombosis of the left lower extremity. ? Dictated by: Guido Roa M.D. on 07/21/2021 at 20:21 ? ? Approved by: Guido Roa M.D. on 07/21/2021 at 20:22?? MDM Narrative Medical decision making narrative: Ultrasound negative for blood clot. Does have swelling and bruising around left lower extremity however this is consistent with her recent total knee replacemen t. No chest pain. No shortness of breath. She was instructed to continue to follow all of the postoperative instructions given by the operative surgeon. She was given return precautions. She expressed understanding and agreement. Discharge Plan Departure Patient Disposition: Home Clinical Impression: Post-operative complication Activity Restrictions/Additional Instructions: The left leg appears appropriate at this stage after your surgery. There was no blood clots noted on the ultrasound. Continue to follow all of the postoperative instructions given to you by the orthopedic surgeon. Return to the emergency department for any new or worsening symptoms. Prescriptions: No Action atorvastatin 10 mg tablet 10 mg PO DAILY 0RF levothyroxine 175 mcg capsule 175 mcg PO DAILY 0RF B-complex with vitamin C Capsule 1 cap PO DAILY 0RF furosemide 20 mg tablet 40 mg PO DAILY 0RF losartan 100 mg Tablet 100 mg PO BEDTIME 0RF acetaminophen 325 mg Tablet 650 mg PO TID Qty: 30 0RF aspirin 81 mg Tablet,Delayed Release (Dr/Ec) 81 mg PO BID 42 Days Qty: 84 0RF oxycodone 5 mg Tablet 5 mg PO Q4H PRN (Reason: Pain, Moderate (4-6)) Qty: 40 0RF potassium chloride 10 mEq Capsule, Extended Release 10 meq PO DAILY 0RF amlodipine [Norvasc] 10 mg Tablet 10 mg PO BEDTIME 0RF Referrals: Beka Tucker DO [Primary Care Provider] -
== END 2021-07-21 20:49 | disposition home or self-care (01) ==
PROVIDERS: Emergency Provider Emergency Medicine; Family Provider Physician Assistant Medical; PCP Family Medicine
DX: M25.562 Pain in left knee (principal); M79.89 Other specified soft tissue disorders
CPT/HCPCS: 93971; 99283

== ENCOUNTER → 2022-01-05 09:31 | Outpatient (CLI) | payer MEDICARE, SELFPAY ==
[2021-07-15 15:39] VITALS: BMI 37.2
--- NOTE | 2022-01-05 | DI.US.S_ITS ---
PROCEDURE: US PELVIC COMPLETE INDICATIONS: LEFT OVARIAN MASS TECHNIQUE: Real-time scanning was performed of the pelvic organs, with image documentation. Additional endovaginal scanning was necessary due to incomplete visualization of the adnexal and endometrial structures by transabdominal scanning. COMPARISON: [facility], US, US PELVIC COMPLETE, 11/21/2020, 11:29. [facility], US, US PELVIC COMPLETE, 06/26/2021, 10:34. FINDINGS: Uterus: Uterus is anteverted and normal in size at 5.5 x 2.6 x 4.0 cm. The myometrium is homogeneous. The endometrium measures 1.6 mm combined thickness. Ovaries: The bilateral ovaries are not visualized. There is a 3.8 x 4.8 x 4.8 cm left adnexal cyst. No internal septation or vascularity. This measured 4.1 x 5.4 x 3.7 cm on the ultrasound dated November 21, 2020. Other: No pathologic free abdominal or pelvic fluid. IMPRESSION: 1. Normal sonographic appearance of a postmenopausal endometrial complex. 2. 4.8 cm left adnexal cyst stable from prior study. Annual sonographic surveillance recommended. We strive to produce accurate, complete, and clear reports of imaging services. To assist us in improving patient care, this report was composed using standard report templates and voice recognition software. Therefore, it may contain abnormal punctuation, insertions and/or omissions. Occasional wrong-word or sound-alike substitutions may occur. Though we review the report and make efforts to correct it, we do recommend that the report be read carefully in proper context to recognize any text inaccuracies. Dictated by: Margarita Hung M.D. on 01/05/2022 at 12:15 Approved by: Margarita Hung M.D. on 01/05/2022 at 12:19
== END ==
PROVIDERS: Family Provider Physician Assistant Medical; PCP Family Medicine; Referring Provider Obstetrics & Gynecology; Visit Provider Obstetrics & Gynecology
DX: N83.8 Other noninflammatory disorders of ovary, fallopian tube and broad ligament (principal); Z78.0 Asymptomatic menopausal state
CPT/HCPCS: 76830; 76856

== ENCOUNTER → 2022-03-26 09:24 | Outpatient (CLI) | payer MEDICARE, SELFPAY ==
[2021-07-15 15:39] VITALS: BMI 37.2
[2022-03-26 10:38] LABS: Cholesterol 187 mg/dL (140-199); HDL Cholesterol 56 mg/dL (40-60); LDL Cholesterol Calculated 92 mg/dL (<100); Triglycerides 195 mg/dL (35-150)
== END ==
PROVIDERS: Family Provider Physician Assistant Medical; PCP Family Medicine; Referring Provider Internal Medicine Cardiovascular Disease; Visit Provider Internal Medicine Cardiovascular Disease
DX: E78.5 Hyperlipidemia, unspecified (principal); I10 Essential (primary) hypertension
CPT/HCPCS: 80061

== ENCOUNTER → 2022-07-15 12:02 | Outpatient (CLI) | payer MEDICARE, SELFPAY ==
[2021-07-15 15:39] VITALS: BMI 37.2
--- NOTE | 2022-07-15 | DI.US.S_ITS ---
PROCEDURE: US PELVIC COMPLETE INDICATIONS: LEFT ADNEXAL CYST TECHNIQUE: Real-time scanning was performed of the pelvic organs, with image documentation. Additional endovaginal scanning was necessary due to incomplete visualization of the adnexal and endometrial structures by transabdominal scanning. COMPARISON: [facility], US, US PELVIC COMPLETE, 01/05/2022, 10:01. FINDINGS: Uterus: Uterus is anteverted and normal in size at 5.4 x 2.6 x 4 cm. The myometrium is homogeneous. No discrete uterine fibroids. The endometrium measures 2.7 mm combined thickness. No endometrial mass or fluid is seen. Ovaries: Bilateral ovaries are not well seen. Patient's known 3.8 x 4.8 x 4.8 cm left adnexal cystic structure is again seen now measures 3.8 x 5.4 x 4.8 cm in size and show no internal septation or solid component. No internal vascularity is seen. Other: No pathologic free abdominal or pelvic fluid. IMPRESSION: Simple appearing cyst in left adnexa is not significantly changed in size and appearance. No new adnexal lesion is seen. Normal appearing urinary bladder. We strive to produce accurate, complete, and clear reports of imaging services. To assist us in improving patient care, this report was composed using standard report templates and voice recognition software. Therefore, it may contain abnormal punctuation, insertions and/or omissions. Occasional wrong-word or sound-alike substitutions may occur. Though we review the report and make efforts to correct it, we do recommend that the report be read carefully in proper context to recognize any text inaccuracies. Dictated by: Mina Turner M.D. on 07/15/2022 at 15:57 Approved by: Mina Turner M.D. on 07/15/2022 at 15:58
== END ==
PROVIDERS: Family Provider Physician Assistant Medical; PCP Physician Assistant; Referring Provider Obstetrics & Gynecology; Visit Provider Obstetrics & Gynecology
DX: N83.8 Other noninflammatory disorders of ovary, fallopian tube and broad ligament (principal); N94.89 Other specified conditions associated with female genital organs and menstrual cycle
CPT/HCPCS: 76830; 76856

== ENCOUNTER → 2023-07-26 09:57 | Outpatient (CLI) | payer MEDICARE, SELFPAY ==
[2021-07-15 15:39] VITALS: BMI 37.2
--- NOTE | 2023-07-26 | DI.US.S_ITS ---
PROCEDURE: US PELVIC COMPLETE INDICATIONS: REASSESS LEFT OVARIAN CYST TECHNIQUE: Real-time scanning was performed of the pelvic organs, with image documentation. Additional endovaginal scanning was necessary due to incomplete visualization of the adnexal and endometrial structures by transabdominal scanning. COMPARISON: [facility], US, US PELVIC COMPLETE, 07/15/2022, 12:32. FINDINGS: Uterus: Uterus is anteverted and normal in size at 5.6 x 2.6 x 3.6 cm. The myometrium is homogeneous in echotexture The endometrium measures 2.6 mm combined thickness. Ovaries: The ovaries are not seen. A simple left adnexal cyst with thin joseph, posterior acoustic enhancement, no internal echogenicity measures 4.7 x 3.7 x 5.4 cm (previously 3.8 x 5.4 x 4.8 cm). Other: No pathologic free abdominal or pelvic fluid. IMPRESSION: 1. Left adnexal simple appearing cyst measuring 5.4 cm in largest dimension appearing similar to prior study on 07/15/2022; recommend yearly follow-up pelvic ultrasound 2. Nonvisualized ovaries >> We strive to produce accurate, complete, and clear reports of imaging services. To assist us in improving patient care, this report was composed using standard report templates and voice recognition software. Therefore, it may contain abnormal punctuation, insertions and/or omissions. Occasional wrong-word or sound-alike substitutions may occur. Though we review the report and make efforts to correct it, we do recommend that the report be read carefully in proper context to recognize any text inaccuracies. Dictated by: Edgar Stewart M.D. on 07/26/2023 at 12:48 Approved by: Edgar Stewart M.D. on 07/26/2023 at 13:02
== END ==
LOC: US 09:57
PROVIDERS: Family Provider Physician Assistant Medical; PCP Physician Assistant; Referring Provider Obstetrics & Gynecology; Visit Provider Obstetrics & Gynecology
DX: N83.8 Other noninflammatory disorders of ovary, fallopian tube and broad ligament (principal)
CPT/HCPCS: 76830; 76856

== ENCOUNTER → 2024-12-26 14:16 | Outpatient (CLI) | payer MEDICARE, SELFPAY ==
[2021-07-15 15:39] VITALS: BMI 37.2
[2024-12-26 15:54] LABS: BUN Creatinine Ratio 31.4 (6-22); Blood Urea Nitrogen 38 mg/dL (7-17); Calcium 9.7 mg/dL (8.4-10.2); Carbon Dioxide 26 mmol/L (22-32); Chloride 103 mmol/L (98-107); Cholesterol 173 mg/dL (140-199); Estimated Glomerular Filt Rate 46 mL/min (>60); Glucose 150 mg/dL (70-99); HDL Cholesterol 80 mg/dL (40-60); HEMOLYSIS < 15 (0-50); LDL Cholesterol Calculated 68 mg/dL (<100); Sodium 134 mmol/L (137-145); Triglycerides 124 mg/dL (35-150)
[2024-12-26 16:00] LABS: Potassium 5.6 mmol/L (3.4-5.1)
== END ==
LOC: LAB 14:19
PROVIDERS: Family Provider Physician Assistant Medical; PCP Family Medicine; Referring Provider Internal Medicine Cardiovascular Disease; Visit Provider Internal Medicine Cardiovascular Disease
DX: E78.5 Hyperlipidemia, unspecified (principal); I10 Essential (primary) hypertension
CPT/HCPCS: 36415; 80048; 80061